=== PATIENT | female | born 1950 | race African-American/Black ===

== ENCOUNTER 2017-01-01 17:41 | Inpatient (IN) | payer MEDICARE, MEDICAID ==
[~2017-01-01] VITALS: Ht 134.6 cm; Wt 44.9 kg
[~2017-01-01 17:41] MED LIST: AVAPRO150 MG ORAL; CARVEDILOL12.5 MG ORAL; CARVEDILOL25 MG ORAL; CLONIDINE HCL0.3 MG PO; CLONIDINE0.1 MG ORAL; CLOPIDOGREL75 MG ORAL; COLACE100 MG ORAL; COREG12.5 MG ORAL; DIOVAN320 MG ORAL; FEOSOL325 MG ORAL; FERROUS SULFAT325 MG ORAL; HEARTBURN RELI150 M1 PO; HYDRALAZINE HCL25 M1 ORAL; ISOSORBIDE MONO30 M1 ORAL; ISOSORBIDE MONO30 M1 PO; NEPHRO-VITE RX1 EAC1 PO; NEPHROVITE1 TAB ORAL; NITROSTAT0.4 M1 SL; NOVOLOG100 UNIT/3 SUBQ; NOVOLOG100 UNITS1 SUBQ; PLAVIX75 MG ORAL; PRAVACHOL20 MG ORAL; PRAVASTATIN SOD20 M1 ORAL; PRAVASTATIN SOD40 M1 ORAL; PROCRIT10000 UNIT SUBQ; PROCRIT20000 UNI2 SUBQ; PROCRIT4000 UNIT/ SUBQ; RANITIDINE HCL150 MG ORAL; TRAMADOL HCL50 MG ORAL; VANCOMYCIN1 GM/2502 IVPB; ZOFRAN 4 MG4 MG/2 ML IVP
--- NOTE | 2017-01-01 17:47 | Emergency Room Report ---
History of Present Illness General Chief Complaint: Abdominal Pain Source: EMS Present Illness HPI 66 YO female presents to the Emergency Department brought by ambulance c/o vaginal bleeding and pain x 3 days. pt. has hx of ESRD requiring Dialysis, with bilateral LE amputations, necrotic finger, and skin disorder. Pt. last Dialysis was today. Pt has difficulty with communication and is unable to rate severity of pain. pt. verbalizes pain and points to the groin area. HPI and ROS limited by pt. being poor historian. Allergies: Coded Allergies: ASPIRIN (Verified Allergy, Mild, 08/15/10) PENICILLINS (Verified Allergy, Mild, 08/15/10) LEBRON INHIBITORS (Unverified Allergy, Unknown, 01/01/17) ACETAMINOPHEN (Unverified Allergy, Unknown, 09/18/15) patient stated CODEINE (Unverified Allergy, Unknown, 01/01/17) PENICILLIN (Verified Allergy, Unknown, 09/17/15) Uncoded Allergies: PENICILLIN (Allergy, Unknown, 01/01/17) Patient History Past Medical History: see triage record, renal disease Past Surgical History: richa Pertinent Family History: none Now: No Reviewed Nursing Documentation: PMH: Agreed, PSxH: Agreed Nursing Documentation-PMH Past Medical History: No History, Except For Hx Cardiac Problems: Yes - MO x3, BILAT AMPUTEE Hx Hypertension: Yes Hx Diabetes: Yes Hx Cancer: No Hx Gastrointestinal Problems: No Hx Dialysis: Yes - M, W, F Hx Neurological Problems: Yes Hx Cerebrovascular Accident: Yes - 3 YRS AGO - LEFT SIDE DEFICIT Hx Aphasia: Yes - Expressive Aphasia Review of Systems All Other Systems: limited - limited by pt. being poor historian. Physical Exam Vital Signs Date Time Temp Pulse Resp B/P Pulse Ox O2 Delivery O2 Flow Rate FiO2 01/01/17 17:34 98.1 94 16 151/75 100 Room Air Sp02 EP Interpretation: reviewed, normal General Appearance: alert, GCS 15, moderate distress, thin, Chronically Ill Head: normocephalic, atraumatic Eyes: bilateral eye PERRL, bilateral eye normal inspection ENT: hearing grossly normal, normal pharynx, no angioedema, normal voice Neck: full range of motion, supple/symm/no masses Respiratory: lungs clear, normal breath sounds Cardiovascular #1: regular rate, rhythm, no edema - pt has bilateral LE amputation Gastrointestinal: normal bowel sounds, soft, no guarding, no rebound, other - Lower abdominal Tenderness to deep palpation bilaterally, no appreciable peritoneal signs. Rectal: deferred Genitourinary: no CVA tenderness, urethra normal - difficult to determine blood from the urethra., other - moderate blood arising from the vaginal vault , dark red in color, pt. unable to tolerate speculum exam. no obvious palpable masses Musculoskeletal: back normal, non-tender, other - Pt has bilateral LE amputation, and necrotic left index finger. Neurologic: alert, oriented x3, responsive, sensory intact Psychiatric: judgement/insight normal, memory normal, mood/affect normal, no suicidal/homicidal ideation Skin: no rash, warm/dry, other - skin is thick and dry in appearance, necrotic left index finger. Medical Decision Making PA Attestation Dr. Gordon is my supervising Physician whom patient management has been discussed with. Diagnostic Impression: Primary Impression: Bladder hemorrhage Additional Impressions: Uterine hemorrhage ESRD (end stage renal disease) ER Course Pt. presents to the ED c/o vaginal bleeding: x 3 days. pt. has hx of ESRD, with bilateral LE amputations, necrotic finger, and skin disorder. Ddx considered but are not limited to: Fibroid, , Malignancy, Hematuria, laceration, DUB, MO Vital signs: are WNL, pt. is afebrile Pelvic Exam: limited due to pt. tolerance, dark blood noted coming from the vaginal vault. H&PE are most consistent with: Moderate vaginal bleed, in a medically complicated patient with chronic disease and comorbidities. ORDERS: -CBC critical low Hgb 6.5 -CMP: low cl and low potassium -PT/PTT: WNL -Troponin: WNL less than 0.3 -Total CK: Elevated -CK-MB: Elevated at 5 -Digoxin level: less than 0.3 -EK BPM NSR prolonged QT, septal T waves, and ST depression in lead V3- per interpretation by Dr. Gordon. IMAGING: -Pelvic US: uterine fibroids, ovaries not visualized due to pt. unable to tolerate and moderate vaginal bleeding per preliminary US report. -CT Abdomen and Pelvis Non Contrast: distended urinary bladder due to large hematoma. extensive large and small vessel arterial ASVD. evidence of arto- bifemoral bypass, uterine fibroids, heavily calcified , and basilar atelectasis per official radiology report. -Type and Cross: ED INTERVENTIONS: -2 Units PRBCs - OBGYN consult with Dr. Swanson DISPOSITION: at this time pt. will be admitted to Dr. Wayne for Acute bleeding from Uterus and Bladder. Dr. Wayne agreed to admit the pt. and to continue pt. care management. Labs Test 01/01/17 18:19 White Blood Count 6.3 K/UL (4.8-10.8) Red Blood Count 2.25 M/UL (4.20-5.40) Hemoglobin 6.5 G/DL (12.0-16.0) Hematocrit 21.1 % (37.0-47.0) Mean Corpuscular Volume 94 FL (80-99) Mean Corpuscular Hemoglobin 28.7 PG (27.0-31.0) Mean Corpuscular Hemoglobin Concent 30.6 G/DL (32.0-36.0) Red Cell Distribution Width 19.5 % (11.6-14.8) Platelet Count 207 K/UL (150-450) Mean Platelet Volume 7.7 FL (6.5-10.1) Neutrophils (%) (Auto) % (45.0-75.0) Lymphocytes (%) (Auto) % (20.0-45.0) Monocytes (%) (Auto) % (1.0-10.0) Eosinophils (%) (Auto) % (0.0-3.0) Basophils (%) (Auto) % (0.0-2.0) Differential Total Cells Counted 100 Neutrophils % (Manual) 79 % (45-75) Lymphocytes % (Manual) 6 % (20-45) Monocytes % (Manual) 7 % (1-10) Eosinophils % (Manual) 2 % (0-3) Basophils % (Manual) 3 % (0-2) Band Neutrophils 3 % (0-8) Platelet Estimate Adequate Platelet Morphology Normal Polychromasia 2+ Hypochromasia 1+ Anisocytosis 2+ Macrocytosis 2+ Prothrombin Time 10.5 SEC (9.30-11.50) Prothromb Time International Ratio 1.0 (0.9-1.1) Activated Partial Thromboplast Time 27 SEC (23-33) Sodium Level 138 mEQ/L (135-145) Potassium Level 3.0 mEQ/L (3.4-4.9) Chloride Level 90 mEQ/L (98-107) Carbon Dioxide Level 30 mEQ/L (20-30) Anion Gap 18 (5-15) Blood Urea Nitrogen 6 mg/dL (7-23) Creatinine 1.6 mg/dL (0.5-0.9) Estimat Glomerular Filtration Rate 38.9 mL/min (>60) Glucose Level 137 mg/dL (74-106) Calcium Level 9.6 mg/dL (8.6-10.2) Total Bilirubin 0.9 mg/dL (0.0-1.2) Aspartate Amino Transf (AST/SGOT) 25 U/L (5-40) Alanine Aminotransferase (ALT/SGPT) 5 U/L (3-33) Alkaline Phosphatase 59 U/L (35-104) Total Creatine Kinase 169 U/L (26-140) Creatine Kinase MB 5.0 ng/mL (< 3.8) Creatine Kinase MB Relative Index 2.9 Troponin I < 0.30 ng/mL (<=0.30) Total Protein 8.2 g/dL (6.6-8.7) Albumin 3.6 g/dL (3.5-5.2) Globulin 4.6 g/dL Albumin/Globulin Ratio 0.7 (1.0-2.7) Digoxin Level < 0.3 ng/mL (0.5-2.0) EKG Diagnostic Results EP Interpretation: interpretation by Dr. Gordon. Rate: normal - 98 BPM Rhythm: NSR PA Scribe Text 98 BPM NSR prolonged QT, septal T waves, and ST depression in lead V3- per interpretation by Dr. Gordon. Last Vital Signs Date Time Temp Pulse Resp B/P Pulse Ox O2 Delivery O2 Flow Rate FiO2 01/01/17 17:34 98.1 94 16 151/75 100 Room Air Disposition: ADMITTED INPATIENT Condition: Serious Cristina Jaimes Jan 01, 2017 17:47
[2017-01-01 18:29] LABS: MEAN CORPUSCULAR HEMOGLOBIN 28.7 PG (27.0-31.0); MEAN CORPUSCULAR HGB CONC 30.6 G/DL (32.0-36.0); MEAN CORPUSCULAR VOLUME 94 FL (80-99); MEAN PLATELET VOLUME 7.7 FL (6.5-10.1); PLATELET COUNT 207 K/UL (150-450); RED BLOOD COUNT 2.25 M/UL (4.20-5.40); RED CELL DISTRIBUTION WIDTH 19.5 % (11.6-14.8); WHITE BLOOD COUNT 6.3 K/UL (4.8-10.8)
[2017-01-01 18:52] LABS: PROTHROMBIN TIME 10.5 SEC (9.30-11.50)
[2017-01-01 18:56] LABS: TROPONIN I < 0.30 ng/mL (<=0.30)
[2017-01-01 18:59] LABS: ALBUMIN/GLOBULIN RATIO 0.7 (1.0-2.7); CALCIUM 9.6 mg/dL (8.6-10.2); CREATININE 1.6 mg/dL (0.5-0.9); GLOMERULAR FILTRATION RATE 38.9 mL/min (>60); TOTAL PROTEIN 8.2 g/dL (6.6-8.7)
[2017-01-01 20:01] VITALS: BP 159/61
[2017-01-01 20:31] LABS: BAND NEUTROPHILS % (MANUAL) 3 % (0-8); BASOPHILS % (MANUAL) 3 % (0-2); EOSINOPHILS % (MANUAL) 2 % (0-3); LYMPHOCYTES % (MANUAL) 6 % (20-45); NEUTROPHILS % (MANUAL) 79 % (45-75); TOTAL CELLS COUNTED 100
[2017-01-01 20:32] LABS: ANISOCYTOSIS 2+; POLYCHROMASIA 2+
[2017-01-01 20:33] LABS: HYPOCHROMASIA 1+; MACROCYTES 2+; PLATELET ESTIMATE ADEQUATE; PLATELET MORPHOLOGY NORMAL
[2017-01-01] MEDS ORDERED: Mylanta II UD 30ml ORAL PRN (22:30)
[2017-01-01] MEDS ORDERED: Miralax 17gm pkt ORAL PRN (22:30)
[2017-01-01] MEDS ORDERED: DuoNeb 0.5-3(2.5)mg/3ml neb HHN PRN (22:30)
[2017-01-01] MEDS ORDERED: Zolpidem 5mg tab ORAL PRN (22:30)
[2017-01-01 22:44] VITALS: BP 154/53
[2017-01-02] VITALS (9 sets, daily range): BP systolic 129–172; BP diastolic 56–68
[2017-01-02] MEDS ORDERED: Premarin Inj IV ONE ×2 (01:00→04:00)
[2017-01-02] MEDS ORDERED: NovoLOG Insulin Flexpen SUBQ SCH (06:30)
[2017-01-02] MEDS ORDERED: Irbesartan 150mg tablet ORAL SCH (09:00)
[2017-01-02] MEDS ORDERED: Carvedilol 12.5mg tab ORAL SCH ×3 (09:00)
[2017-01-02] MEDS ORDERED: Epogen (for ESRD on dialysis) SUBQ SCH (09:00)
[2017-01-02] MEDS ORDERED: HydrALAZINE 25mg tab ORAL SCH (09:00)
[2017-01-02] MEDS ORDERED: Imdur 30mg tab ORAL SCH (09:00)
[2017-01-02 10:04] LABS: BASOPHILS % (AUTO) 1.3 % (0.0-2.0); EOSINOPHILS % (AUTO) 1.1 % (0.0-3.0); LYMPHOCYTES % (AUTO) 14.4 % (20.0-45.0); MEAN CORPUSCULAR HEMOGLOBIN 29.2 PG (27.0-31.0); MEAN CORPUSCULAR HGB CONC 32.8 G/DL (32.0-36.0); MEAN CORPUSCULAR VOLUME 89 FL (80-99); MEAN PLATELET VOLUME 7.4 FL (6.5-10.1); MONOCYTES % (AUTO) 11.4 % (1.0-10.0); NEUTROPHILS % (AUTO) 71.8 % (45.0-75.0); PLATELET COUNT 216 K/UL (150-450); RED BLOOD COUNT 3.49 M/UL (4.20-5.40); RED CELL DISTRIBUTION WIDTH 17.5 % (11.6-14.8); WHITE BLOOD COUNT 5.7 K/UL (4.8-10.8)
--- NOTE | 2017-01-02 10:05 | Diagnostic Imaging Report ---
Indication: Postmenopausal bleeding Technique: Transabdominal and endovaginal pelvic ultrasound. Comparison: None Findings: Uterus measures 7.9 x 4.0 cm and demonstrates heterogeneous echogenicity. Multiple calcified uterine masses are demonstrated grossly measuring up to 4.5 cm. The endometrial echo complex is obscured. The bilateral ovaries are not seen. Impression: Technically limited examination. Heterogeneous uterus with multiple calcified masses measuring up to 4.5 cm suggestive of fibroids. Endometrial echo complex obscured by the calcified masses and not adequately evaluated. Given history of postmenopausal bleeding, further evaluation/gynecologic consultation recommended. Bilateral ovaries not seen.
[2017-01-02] MEDS: HydrALAZINE 25mg tab ORAL SCH ×2 (10:18→21:41)
[2017-01-02] MEDS: Irbesartan 150mg tablet ORAL SCH (10:19)
[2017-01-02] MEDS: Imdur 30mg tab ORAL SCH (10:19)
[2017-01-02] MEDS: Carvedilol 12.5mg tab ORAL SCH ×2 (10:21→21:42)
[2017-01-02 10:25] LABS: ALBUMIN/GLOBULIN RATIO 0.6 (1.0-2.7); CALCIUM 9.1 mg/dL (8.6-10.2); CHOLESTEROL/HDL RATIO 2.1 (3.3-4.4); CREATININE 2.4 mg/dL (0.5-0.9); GLOMERULAR FILTRATION RATE 24.4 mL/min (>60); TOTAL PROTEIN 7.1 g/dL (6.6-8.7)
[2017-01-02] MEDS ORDERED: Mylanta II UD 30ml ORAL PRN (10:30)
[2017-01-02] MEDS ORDERED: DuoNeb 0.5-3(2.5)mg/3ml neb HHN PRN (10:30)
[2017-01-02 10:31] LABS: THYROID STIMULATING HORMONE 1.12 uIU/mL (0.300-4.500)
--- NOTE | 2017-01-02 10:37 | Diagnostic Imaging Report ---
Indication: Abdominal pain Technique: CT scan of the abdomen and pelvis utilizing automated exposure control without intravenous or oral contrast. Axial, sagittal and coronal images were obtained. CT dose: Total DLP 375 mGycm; CTDI vol 7.9 mGy Comparison: None Findings: Evaluation of the solid organs is limited without intravenous contrast material. There is atelectasis in the lung bases. Trace bilateral pleural effusions are seen. The heart is enlarged. There is a calcified granuloma the liver. Cholecystectomy clips are seen. The adrenal glands, spleen and pancreas are grossly unremarkable as evaluated without contrast. The bilateral kidneys are slightly small with tiny hypodensities incompletely characterized. Extensive vascular calcifications are noted. Vascular patency is not adequately assessed without contrast. The small bowel loops are normal in caliber. There is no definitive evidence of appendicitis. There is limited evaluation of the bowel. The bladder is thickened. There is heterogeneous masslike increased density in the posterior bladder measuring approximately 6.7 x 3.5 cm. Air is also seen within the bladder. Multiple calcified uterine masses are demonstrated measuring up to 4.5 cm. There is no free intraperitoneal air. Degenerative changes of the spine are present. There is osteopenia. Impression: Air within the bladder with bladder wall thickening. Cystitis not excluded. Heterogeneous masslike increased density within the posterior bladder measuring 6.7 x 3.5 cm. Although this could represent a hematoma, possibility of a bladder mass not excluded. Further evaluation recommended. Multiple calcified uterine masses suggestive of fibroids. Extensive vascular calcifications. Vascular patency not adequately assessed without contrast. Cholecystectomy. Slightly small bilateral kidneys. Tiny bilateral renal hypodensities incompletely characterized probably cysts. Trace bilateral pleural effusions. Lung base atelectasis. Cardiomegaly. Other findings as above. The CT scanner at [facility] is accredited by the [employer] and the scans are performed using protocols designed to limit radiation exposure to as low as reasonably achievable to attain images of sufficient resolution adequate for diagnostic evaluation.
--- NOTE | 2017-01-02 10:40 | Consultation ---
History of Present Illness General Date patient seen: Jan 02, 2017 Chief Complaint: Abdominal Pain Referring physician: Dr. Wayne Reason for Consultation: Inpatient management Present Illness HPI 66 year female with hx of Scleroderma, ESRF, PVD, bilateral BKA, necrotic left middle finger presents to the Emergency Department brought by ambulance c/o vaginal bleeding and pain x 3 days. Pt is a very poor historians and cant communicate well, showing to groin area. Allergies: Coded Allergies: ASPIRIN (Verified Allergy, Mild, 08/15/10) PENICILLINS (Verified Allergy, Mild, 08/15/10) LEBRON INHIBITORS (Unverified Allergy, Unknown, 01/01/17) ACETAMINOPHEN (Unverified Allergy, Unknown, 09/18/15) patient stated CODEINE (Unverified Allergy, Unknown, 01/01/17) PENICILLIN (Verified Allergy, Unknown, 09/17/15) Uncoded Allergies: PENICILLIN (Allergy, Unknown, 01/01/17) Medication History Scheduled Carvedilol (Coreg), 12.5 MG ORAL EVERY 12 HOURS Carvedilol* (Carvedilol*), 12.5 MG ORAL DAILY, (Reported) Carvedilol* (Carvedilol*), 25 MG ORAL BEDTIME, (Reported) Carvedilol* (Carvedilol*), 12.5 MG ORAL EVERY 12 HOURS, (Reported) Clonidine Hcl (Clonidine Hcl), 0.3 MG PO BEDTIME, (Reported) Clopidogrel Bisulfate* (Plavix*), 75 MG ORAL DAILY Clopidogrel* (Clopidogrel*), 75 MG ORAL DAILY, (Reported) Clopidogrel* (Clopidogrel*), 75 MG ORAL DAILY, (Reported) Docusate Sodium* (Colace*), 100 MG ORAL EVERY 12 HOURS Epoetin Tristan (Procrit), 5,000 UNITS SUBQ q weekly Epoetin Tristan (Procrit), 4,000 UNIT SUBQ 3XW, (Reported) Epoetin Tristan (Procrit), 5,000 UNIT SUBQ ONCE A WEEK, (Reported) Ferrous Sulfate (Feosol), 325 MG ORAL THREE TIMES A DAY Ferrous Sulfate* (Ferrous Sulfate*), 325 MG ORAL THREE TIMES A DAY Ferrous Sulfate* (Ferrous Sulfate*), 325 MG ORAL THREE TIMES A DAY, (Reported) Hydralazine Hcl* (Hydralazine Hcl*), 75 MG ORAL Q12HR Insulin Aspart (Novolog Flexpen), 0 UNITS SUBQ BEFORE MEALS AND HS Insulin Aspart* (Novolog*), Unknown Dose SUBQ ACHS, (Reported) Irbesartan* (Avapro*), 300 MG ORAL DAILY Isosorbide Mononitrate (Isosorbide Mononitrate Er), 30 MG PO DAILY, (Reported) Isosorbide Mononitrate (Isosorbide Mononitrate Er), 30 MG ORAL DAILY Pravastatin Sod (Pravastatin Sod), 40 MG ORAL BEDTIME, (Reported) Pravastatin Sod* (Pravastatin Sod*), 40 MG ORAL BEDTIME, (Reported) Pravastatin Sod* (Pravachol*), 40 MG ORAL BEDTIME Ranitidine Hcl* (Zantac*), 150 MG ORAL DAILY, (Reported) Valsartan (Diovan), 320 MG ORAL DAILY, (Reported) Valsartan (Diovan), 320 MG ORAL DAILY, (Reported) Vancomycin Hcl/D5w (Vancomycin-D5w 1 G/250 Ml), 1 GM IVPB Q24H Vitamin B Cmplx/Vit C/Folic AC (Nephro-Aleksandr Tablet), 1 TAB ORAL DAILY, (Reported ) Vitamin B Cmplx/Vit C/Folic AC (Nephro-Aleksandr Tablet), 1 TAB ORAL DAILY Scheduled PRN Clonidine HCl (Clonidine HCl), 0.1 MG ORAL Q6H PRN for SBP>160 Nitroglycerin (Nitrostat), 0.4 MG SL Q5M PRN for Prn Chest Pain Ondansetron* (Zofran*), 4 MG IVP Q6H PRN for Nausea & Vomiting Tramadol Hcl* (Ultram*), 50 MG ORAL Q6H PRN for For Pain Miscellaneous Medications Clonidine Hcl (Clonidine Hcl), 0.3 MG PO, (Reported) Isosorbide Mononitrate (Isosorbide Mononitrate Er), 30 MG PO, (Reported) Ranitidine Hcl (Heartburn Relief), 150 MG PO, (Reported) Vit B Cmplx 3/Fa/Vit C/Biotin (Nephro-Aleksandr Rx Tablet), Unknown Dose PO, ( Reported) Patient History Healthcare decision maker Resuscitation status Full Code Advanced Directive on File No Past Medical/Surgical History Past Medical/Surgical History: (1) ESRF (end stage renal failure) (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 Review of Systems Constitutional: Reports: weakness Genitourinary: Reports: pain All Other Systems: negative except mentioned in HPI Physical Exam General Appearance: cachetic Lines, tubes and drains: peripheral HEENT: normocephalic, atraumatic Neck: non-tender, normal alignment Respiratory/Chest: chest wall non-tender, lungs clear Cardiovascular/Chest: normal peripheral pulses, normal rate Abdomen: normal bowel sounds, non tender Last 24 Hour Vital Signs Date Time Temp Pulse Resp B/P Pulse Ox O2 Delivery O2 Flow Rate FiO2 01/02/17 10:21 92 172/68 01/02/17 10:19 17268 01/02/17 10:19 172/68 01/02/17 10:18 172/68 01/02/17 10:04 92 18 Room Air 21 01/02/17 08:00 97.3 95 16 172/68 01/02/17 04:00 85 01/02/17 02:30 98.3 93 29 154/56 99 Room Air 01/02/17 02:00 98.3 93 29 154/56 99 Room Air 01/02/17 01:00 98.2 90 26 144/56 99 Room Air 01/02/17 00:45 98.4 91 24 148/58 99 Room Air 01/02/17 00:30 98.4 90 29 148/59 99 Room Air 01/02/17 00:23 98.9 93 37 01/02/17 00:15 98.9 93 37 151/56 100 Room Air 01/01/17 22:44 98.4 89 18 154/53 97 Room Air 01/01/17 20:01 98.4 93 20 159/61 95 Room Air 01/01/17 17:34 98.1 94 16 151/75 100 Room Air Intake and Output 01/01/17 01/02/17 19:00 07:00 Intake Total 0 ml Output Total 0 ml Balance 0 ml Intake Oral 0 ml Other 0 ml Output Urine Total 0 ml Laboratory Tests Test 01/01/17 18:19 01/02/17 09:45 White Blood Count 6.3 K/UL (4.8-10.8) 5.7 K/UL (4.8-10.8) Red Blood Count 2.25 M/UL (4.20-5.40) L 3.49 M/UL (4.20-5.40) L Hemoglobin 6.5 G/DL (12.0-16.0) *L 10.2 G/DL (12.0-16.0) #L Hematocrit 21.1 % (37.0-47.0) L 31.0 % (37.0-47.0) #L Mean Corpuscular Volume 94 FL (80-99) 89 FL (80-99) Mean Corpuscular Hemoglobin 28.7 PG (27.0-31.0) 29.2 PG (27.0-31.0) Mean Corpuscular Hemoglobin Concent 30.6 G/DL (32.0-36.0) L 32.8 G/DL (32.0-36.0) Red Cell Distribution Width 19.5 % (11.6-14.8) H 17.5 % (11.6-14.8) H Platelet Count 207 K/UL (150-450) 216 K/UL (150-450) Mean Platelet Volume 7.7 FL (6.5-10.1) 7.4 FL (6.5-10.1) Neutrophils (%) (Auto) % (45.0-75.0) 71.8 % (45.0-75.0) Lymphocytes (%) (Auto) % (20.0-45.0) 14.4 % (20.0-45.0) L Monocytes (%) (Auto) % (1.0-10.0) 11.4 % (1.0-10.0) H Eosinophils (%) (Auto) % (0.0-3.0) 1.1 % (0.0-3.0) Basophils (%) (Auto) % (0.0-2.0) 1.3 % (0.0-2.0) Differential Total Cells Counted 100 Neutrophils % (Manual) 79 % (45-75) H Lymphocytes % (Manual) 6 % (20-45) L Monocytes % (Manual) 7 % (1-10) Eosinophils % (Manual) 2 % (0-3) Basophils % (Manual) 3 % (0-2) H Band Neutrophils 3 % (0-8) Platelet Estimate Adequate Platelet Morphology Normal Polychromasia 2+ Hypochromasia 1+ Anisocytosis 2+ Macrocytosis 2+ Prothrombin Time 10.5 SEC (9.30-11.50) Prothromb Time International Ratio 1.0 (0.9-1.1) Activated Partial Thromboplast Time 27 SEC (23-33) Sodium Level 138 mEQ/L (135-145) Pending Potassium Level 3.0 mEQ/L (3.4-4.9) L Pending Chloride Level 90 mEQ/L (98-107) L Pending Carbon Dioxide Level 30 mEQ/L (20-30) Pending Anion Gap 18 (5-15) H Blood Urea Nitrogen 6 mg/dL (7-23) L Pending Creatinine 1.6 mg/dL (0.5-0.9) H Pending Estimat Glomerular Filtration Rate 38.9 mL/min (>60) Pending Glucose Level 137 mg/dL (74-106) H Pending Calcium Level 9.6 mg/dL (8.6-10.2) Pending Total Bilirubin 0.9 mg/dL (0.0-1.2) Pending Aspartate Amino Transf (AST/SGOT) 25 U/L (5-40) Pending Alanine Aminotransferase (ALT/SGPT) 5 U/L (3-33) Pending Alkaline Phosphatase 59 U/L (35-104) Pending Total Creatine Kinase 169 U/L (26-140) H Creatine Kinase MB 5.0 ng/mL (< 3.8) H Creatine Kinase MB Relative Index 2.9 Troponin I < 0.30 ng/mL (<=0.30) Total Protein 8.2 g/dL (6.6-8.7) Pending Albumin 3.6 g/dL (3.5-5.2) Pending Globulin 4.6 g/dL Pending Albumin/Globulin Ratio 0.7 (1.0-2.7) L Digoxin Level < 0.3 ng/mL (0.5-2.0) L Hemoglobin A1c 5.0 % (< 6.0) Triglycerides Level Pending Cholesterol Level Pending LDL Cholesterol Pending HDL Cholesterol Pending Cholesterol/HDL Ratio Pending Thyroid Stimulating Hormone (TSH) Pending Height (Feet): 4 Height (Inches): 5.00 Weight (Pounds): 99 Medications Current Medications Medications (Trade) Dose Ordered Sig/Angelique Route PRN Reason Start Time Stop Time Status Last Admin Dose Admin Al Hydroxide/Mg Hydroxide (Mylanta II) 30 ml Q6H PRN ORAL dyspepsia 01/02/17 10:30 02/01/17 10:29 Albuterol/ Ipratropium (DuoNeb 0.5-3(2.5)mg/3ml) 3 ml Q6H PRN HHN dyspnea 01/02/17 10:30 01/07/17 10:29 Carvedilol (Coreg) 12.5 mg EVERY 12 HOURS ORAL 01/02/17 10:20 02/01/17 10:19 01/02/17 10:21 Dextrose (Dextrose 50%) STAT PRN IV Hypoglycemia 01/02/17 22:30 02/01/17 22:29 Epoetin Tristan (Procrit (for ESRD on dialysis)) 5,000 units WED-WED-WED SUBQ 01/04/17 21:00 02/03/17 20:59 Hydralazine HCl (Apresoline) 75 mg Q12HR ORAL 01/02/17 09:00 02/01/17 08:59 01/02/17 10:18 Insulin Aspart (NovoLOG) BEFORE MEALS AND HS SUBQ 01/02/17 11:30 02/01/17 11:29 Irbesartan (Avapro) 300 mg DAILY ORAL 01/02/17 09:00 02/01/17 08:59 01/02/17 10:19 Isosorbide Mononitrate (Imdur) 30 mg DAILY ORAL 01/02/17 09:00 02/01/17 08:59 01/02/17 10:19 Ondansetron HCl (Zofran) 4 mg Q6H PRN IVP Nausea & Vomiting 01/02/17 10:30 02/01/17 10:29 Polyethylene Glycol (Miralax) 17 gm HSPRN PRN ORAL Constipation 01/02/17 22:30 02/01/17 22:29 Pravastatin Sodium (Pravachol) 40 mg BEDTIME ORAL 01/02/17 21:00 02/01/17 20:59 Zolpidem Tartrate (Ambien) 5 mg HSPRN PRN ORAL Insomnia 01/02/17 22:30 02/01/17 22:29 Assessment/Plan Problem List: (1) Symptomatic anemia ICD Codes: D64.9 - Anemia, unspecified SNOMED: 584599700 (2) Bladder hemorrhage ICD Codes: N32.89 - Other specified disorders of bladder SNOMED: 704928626, 715913480 (3) Uterine hemorrhage ICD Codes: N93.9 - Abnormal uterine and vaginal bleeding, unspecified SNOMED: 23859788, 954719595 (4) ESRF (end stage renal failure) ICD Codes: N18.6 - End stage renal disease SNOMED: 38110976 (5) DM renal manif type II ICD Codes: E11.29 - Type 2 diabetes mellitus with other diabetic kidney complication SNOMED: 89853285, 733213004 Assessment/Plan prbc prn check H/H Urology, Dr. Monaco called, Renal f/u sliding scale and diabetic diet. ELIA MARADIAGA Jan 02, 2017 10:40
[2017-01-02 10:42] LABS: POTASSIUM 2.6 mEQ/L (3.4-4.9)
[2017-01-02 10:53] LABS: BILIRUBIN,DIRECT 0.5 mg/dL (0.1-0.3)
[2017-01-02] MEDS: NovoLOG Insulin Flexpen SUBQ SCH ×3 (11:30→21:00)
--- NOTE | 2017-01-02 13:53 | History & Physical ---
History and Physical History & Physicial Dictated for Int Med-Dr Wayne no. [id number]. NAHOMY MERRILL Jan 02, 2017 13:53
--- NOTE | 2017-01-02 16:18 | History and Physical Report ---
DATE OF ADMISSION: 01/01/2017 CHIEF COMPLAINT: Abdominal pain and vaginal bleeding. HISTORY OF PRESENT ILLNESS: The patient is a 66-year-old, presented to the emergency department brought by ambulance with vaginal bleeding and pain for three days. The patient has end-stage renal disease requiring dialysis, bilateral lower extremity amputations. The patient has severe difficulty communicating, but seems to understand the questions. The patient was brought from home as she says that she has family, but family has not been around to the hospital. PAST MEDICAL HISTORY: End-stage renal disease and hypertension. She also has a history of diabetes and she had a cerebrovascular accident three years ago with left-sided deficit. PAST SURGICAL HISTORY: Cholecystectomy. ALLERGIES: No known drug allergies. Coded allergies to aspirin, penicillin, LEBRON inhibitors, codeine. The patient's history as above. PERTINENT FAMILY HISTORY: Not available. PHYSICAL EXAMINATION: VITAL SIGNS: Temperature 98.3 degrees, pulse 93, respiratory rate 29, blood pressure 154/56, and pulse oximetry 99%. HEAD AND NECK: Pupils equal and reactive to light. LUNGS: Deferred. CARDIAC: Deferred. ABDOMEN: Soft, scaphoid, nondistended and slightly tender in suprapubic area. EXTREMITIES: Bilateral extremities amputated below the knee. PELVIC: Please note that the patient has moderate vaginal bleeding and I was unable to do a full pelvic exam in bed given that the patient is an amputee with difficulty moving her legs. LABORATORY AND DIAGNOSTIC DATA: CBC with a hemoglobin of 6.5. Pelvic ultrasound was consistent with uterine fibroids. Ovaries not visualized. EEC not visualized. CT abdomen and pelvis noncontrast, distended urinary bladder due to the large hematoma, extensive large and small vessel arterial ASVD, evidence of aortobifemoral bypass, uterine fibroids, heavily calcified and basilar atelectasis per official Radiology report. ASSESSMENT: The patient is a 66-year-old female with vaginal bleeding. No blood in [place]. Unable to do a proper pelvic exam. Unable to biopsy her in bed. The patient is status post transfusion of two units packed RBCs per my request. PLAN: To do exam under anesthesia, possible dilation and curettage, hysteroscopy, possible biopsies in the OR tomorrow morning. Addendum: 01/03/2017 After calderón was reinserted by the urologist- it was discovered that patient had bleeding from the bladder and gross hematuria with blood clots and there was no vaginal bleeding. The exam under anesthesia, etc. was postoponed until full evaluation by urology was completed. Noemi Tay M.D. DR: VERÓNICA JOB#: [id number] CC: [id number]
--- NOTE | 2017-01-02 16:20 | General Progress Note ---
Progress Note Progress Note [id number] full note dictated thanks KALINA WELLS Jan 02, 2017 16:20
[2017-01-02 16:45] LABS: PHOSPHORUS 2.1 mg/dL (2.5-4.8)
[2017-01-02] MEDS ORDERED: Zolpidem 5mg tab ORAL PRN (22:30)
[2017-01-02] MEDS ORDERED: Miralax 17gm pkt ORAL PRN (22:30)
--- NOTE | 2017-01-02 23:08 | History and Physical Report ---
DATE OF ADMISSION: 01/01/[address] Wayne. CHIEF COMPLAINT: The patient is a 66-year-old female, who presents with complaint of vaginal bleeding and hematuria. HISTORY OF PRESENT ILLNESS: The patient has a history of peripheral vascular disease. The patient has bilateral urtlx-oej-cetp amputation. The patient herself is not able to contribute much to the history and physical. Much of the history and physical is obtained from the patient's chart. The patient presented to [place] emergency room complaining of vaginal bleeding and groin pain for approximately three days. The patient notes bright red blood per the vagina. The patient was found to have a hemoglobin of 6.5. The patient is admitted with gross hematuria to rule out bladder cancer. REVIEW OF SYSTEMS: Unable to obtain secondary to the patient's mental condition. PAST MEDICAL HISTORY: Significant for 1. Severe peripheral vascular disease, status post bilateral jzdbr-kka-gkws amputation. 2. End-stage renal disease, on dialysis every Wednesday, Wednesday, and Wednesday. 3. Diabetes type 2. 4. Cerebrovascular accident with expressive aphasia. 5. Hypertension. 6. History of scleroderma. 7. Necrotic left third finger. PAST SURGICAL HISTORY: Significant for 1. Bilateral menmh-ahy-ihtp amputation. 2. Arteriovenous graft in the left upper extremity. CURRENT MEDICATIONS: 1. Coreg 12.5 mg one tablet p.o. twice daily. 2. Clonidine 0.2 mg one tablet p.o. at bedtime. 3. Clonidine 0.1 mg one tablet p.o. q.6 h. p.r.n. 4. Plavix 75 mg one tablet p.o. daily. 5. Procrit 5000 units subcutaneously every week. 6. Iron sulfate 325 mg one tablet p.o. three times daily. 7. Hydralazine 25 mg one tablet p.o. twice daily. 8. NovoLog sliding scale. 9. Avapro 300 mg one tablet p.o. daily. 10. Isosorbide mononitrate 30 mg one tablet p.o. daily. 11. Nitroglycerin 0.4 mg sublingual p.r.n. 12. Pravachol 40 mg one tablet p.o. at bedtime. 13. Zantac 150 mg one tablet p.o. daily. 14. Tramadol 50 mg one tablet p.o. q.6 h. 15. Diovan 320 mg one tablet p.o. daily. 16. Vitamin B complex one tablet p.o. daily. ALLERGIES: 1. Aspirin. 2. Penicillin. 3. LEBRON inhibitor. 4. Acetaminophen. 5. Codeine. SOCIAL HISTORY: The patient is single. The patient denies tobacco or alcohol use. PHYSICAL EXAMINATION: VITAL SIGNS: Temperature 97.3, respirations 16, pulse 95, and blood pressure elevated at 172/60. GENERAL: The patient is a thin-appearing female, in no apparent distress. HEENT: Eyes, pupils are equal and responsive to light and accommodation. Extraocular movements are intact. NECK: Supple without lymphadenopathy. CHEST: Lungs are clear to auscultation bilaterally without wheezes or rales. CARDIOVASCULAR: Regular rhythm and rate. S1 and S2 normal without murmurs, rubs, gallops. ABDOMEN: Soft, nontender, and nondistended. Positive bowel sounds. No hepatosplenomegaly. Currently, no rebound or guarding noted. EXTREMITIES: The patient had a bilateral hcgov-qus-wpge amputation. Otherwise, without clubbing, cyanosis or edema. RECTAL: Refused. GENITAL: Refused. NEUROLOGIC: Cranial nerves II through XII are grossly intact without focal deficits. LABORATORY STUDIES: WBC 6.3, hemoglobin 6.5, hematocrit 21.1, and platelets 207,000. Sodium 138, potassium 3, chloride 90, CO2 30, BUN 6, creatinine 1.6, and glucose 137. Troponin less than 0.3. Chest x-ray and CT scan of the abdomen and pelvis revealed a 6.7 x 3.5 cm bladder mass. There were calcified uterine fibroids noted. ASSESSMENT: This is a 66-year-old, female. 1. Bladder mass. 2. Hematuria. 3. Vaginal bleeding. 4. Severe anemia. 5. Hypokalemia. 6. Diabetes type 2. 7. End-stage renal disease. 8. Scleroderma. 9. Cerebrovascular disease. 10. Expressive aphasia. 11. Bilateral yvmgz-ynl-ncpt amputation. 12. Necrotic third finger on the left. TREATMENT: 1. Bladder mass/hematuria. Urology consultation done with Dr. Monaco. We will follow recommendation of Urology. The patient may require cystoscopy. 2. Vaginal bleeding. This is probably secondary to bladder mass as above. The patient does have calcified uterine fibroids, which are probably not the source of the bleeding. 3. Severe anemia. The patient has been typed and crossed for two units of packed RBCs. Transfuse when available. 4. Hypokalemia. The patient is scheduled for dialysis on Wednesday. The patient is currently receiving potassium supplement. 5. Diabetes type 2. Continue NovoLog sliding scale. 6. End-stage renal disease. The patient has been seen previously in Nephrology consultation by Dr. Gray. 7. Scleroderma. 8. Cerebrovascular disease. 9. Expressive aphasia. 10. Bilateral gbaxv-scd-nquz amputations. 11. Necrotic left third finger. Dexter Holloway M.D. DR: JJ JOB#: [id number] CC:
--- NOTE | 2017-01-02 23:18 | Consultation ---
DATE OF CONSULTATION: 01/02/2017 ATTENDING/CONSULTING PHYSICIAN: Elena Whitlock M.D. CHIEF COMPLAINT/HISTORY OF PRESENT ILLNESS: I was asked by Dr. Whitlock to evaluate this unfortunate 66-year-old female regarding a history of gross hematuria. Briefly, the patient has a history of ESRD. She has been maintained on dialysis. She was brought into the emergency room with vaginal/urethral bleeding for approximately three days time. She has multiple medical issues including previous lower extremity amputations. She cannot provide much information and is a poor historian. Most of the information was gathered from the chart. PAST MEDICAL HISTORY: 1. ESRD, on dialysis. 2. Skin disorder, not otherwise specified. PAST SURGICAL HISTORY: 1. Bilateral above-knee amputations. 2. Cholecystectomy. MEDICATIONS: Please see chart for current medications administration details. ALLERGIES: Include penicillins, LEBRON inhibitors, acetaminophen, codeine, and aspirin. SOCIAL HISTORY: Noncontributory. FAMILY HISTORY: Unobtainable as the patient cannot provide much information. REVIEW OF SYSTEMS: A 12-system review of systems cannot be done as the patient has difficulty communicating. PHYSICAL EXAMINATION: GENERAL: The patient is an older female, awake and alert, uncertain of orientation. VITAL SIGNS: Afebrile. Vital signs are stable. HEENT: NCAT. EOMI. NECK: Supple. Full range of motion. Oropharynx is clear. CHEST: Within normal limits. ABDOMEN: Soft, flat, nontender, and nondistended. EXTREMITIES: Warm and well perfused. Bilateral AKAs noted. BACK: No obvious CVA tenderness to percussion. NEUROLOGIC: Deferred as the patient cannot cooperate with exam. GENITOURINARY: Exam reveals normal female external genitalia with a Andrew catheter in place, which has bloody output, which is scant, does not appear to be draining well. LABORATORY DATA: White blood cell count 5.7, hematocrit 31.0, and platelets 216,000. PT 10.5, INR 1.0, and PTT 27. Sodium 138, potassium 2.6, chloride 93, bicarbonate 31, BUN 11, creatinine 2.4, and glucose 101. LFTs within normal limits. Alkaline phosphatase 62. DIAGNOSTIC IMAGING: CT scan of the abdomen and pelvis without contrast reveals bilateral small kidneys with hypodensities incompletely characterized. There was air within the bladder with bladder wall thickening. There is a heterogenous mass of increased density in the posterior bladder measuring 6 x 3 cm in size, likely representing a hematoma versus less likely a bladder mass. There is uterine mass suggestive of fibroids and there are extensive vascular calcifications. ASSESSMENT AND PLAN: In summary, the patient is a 24-cmhz[age]mbvayz with a history of multiple medical issues including end-stage renal disease, on hemodialysis. She presents to the hospital with gross hematuria. Physical exam reveals a Andrew catheter, which has slightly bloody, but not much urine output. Laboratory data is notable for evidence of anemia as well as hypokalemia and renal insufficiency. Diagnostic imaging with CT scan reveals mass in the bladder consistent likely with clot. Today at the bedside, I attempted to irrigate the patient's catheter. It did not irrigate indicating that it was completely clogged. As such, it was removed and 18-Faroese Andrew catheter was placed. This was hand irrigated and clots were cleared from the bladder. At conclusion of irrigation, the output was pink and clear. It was left to gravity drainage. It appears, the patient has a history of gross hematuria. CT scan does not reveal anything obvious outside of the mass in the bladder, which likely represents a clot from the hematuria. I would recommend placing her on a regimen of some antibiotics as she has not currently received any. Additionally, she will need outpatient cystoscopy to complete her workup. If the bleeding did not marce, she will need the cystoscopy to be done as an inpatient for evaluation of the same. Thank you for allowing me to participate in the care of this unfortunate lady. Please do not hesitate to contact me with any questions that you may further have regarding her care. I will be happy to continue seeing her with you as needed. Jcarlos Monaco M.D. DR: JOAQUIN JOB#: [id number] CC:
--- NOTE | 2017-01-02 23:48 | Consultation ---
DATE OF CONSULTATION: 01/02/2017 CONSULTING PHYSICIAN: Brittnee Zhu M.D. REFERRING PHYSICIAN: Dexter Holloway M.D. REASON FOR CONSULTATION: End-stage renal disease and severe hypokalemia. HISTORY OF PRESENT ILLNESS: The patient is a 66-year-old unfortunate female with past medical history significant for end-stage renal disease, on dialysis Wednesday, Wednesday, and Wednesday. She also unfortunately bilateral lower extremity BKA due to peripheral vascular disease, diabetes, hypertension, CVA with expressive aphagia, and possibly malnutrition. She was basically presented to [facility] after she found to have a vaginal bleeding. Upon arrival in the ER, the patient found to have a potassium of 3. Later on, the patient found to be anemic, so the patient received 2 units of packed RBCs, but her potassium dropped further down from 3 to 2.7. I was called for management of renal disease and electrolyte imbalance. Note that the patient has an expressive aphasia and very hard to obtain a complete history from her. PAST MEDICAL HISTORY: 1. End-stage renal disease. 2. Anemia of chronic kidney disease. 3. Renal osteodystrophy. 4. Hypertension. 5. Bilateral lower extremity BKA. 6. History of diabetes. 7. History of CVA. 8. History of hypertension. 9. History of dyslipidemia. SOCIAL HISTORY: She lives at home by herself. So far, there is no she is being taking care of herself, but she seems to be very cachectic and malnourished. She denies having any history of alcohol or drug use. FAMILY HISTORY: Noncontributory. PAST SURGICAL HISTORY: Based on what I could find are includin. History of bilateral lower extremity BKA. 2. History of dialysis catheter placement. 3. History of AV fistula placement. ALLERGIES: She is allergic to aspirin, penicillin, LEBRON inhibitor, and codeine. HOME MEDICATIONS: 1. Carvedilol 12.5 mg p.o. daily. 2. Clonidine 0.3 mg at bedtime. 3. Plavix 75 mg p.o. daily. 4. Epogen 5000 units subcutaneous Wednesday, Wednesday, and Wednesday. 5. Iron sulfate 325 mg p.o. daily. 6. Hydralazine 75 mg p.o. daily. 7. Isosorbide mononitrate 30 mg p.o. daily. 8. Pravastatin 40 mg p.o. daily. 9. Valsartan 320 mg p.o. daily. 10. Ranitidine 40 mg p.o. daily. 11. Nephro-Aleksandr one tablet p.o. daily. 12. Renagel 800 mg p.o. t.i.d. FAMILY HISTORY: Noncontributory. REVIEW OF SYSTEMS: Limited due to the fact that the patient has a history of aphasia. General: She complained of generalized weakness. She said yes to weight loss. No chills. No night sweats. Head And Neck: No dysphagia. this morning was able to feed the patient food. No blurry vision. No neck stiffness. Pulmonary: The patient lying flat. Denies having any chest pain or cough. Cardiovascular: Denies any chest pain or palpitations. Gastrointestinal: There is no nausea or vomiting. Genitourinary: The patient has a Andrew catheter, which has blood in it and also questionable vaginal bleeding. PHYSICAL EXAMINATION: VITAL SIGNS: The patient has a temperature of 97, blood pressure 172/68, pulse rate of 95, and respiratory rate of 18. HEAD AND NECK: No JVP. No LAD. No thyromegaly. Extraocular movement intact. Pupils are reactive to light and accommodation. LUNGS: Decreased breathing sounds. CARDIAC: Regular rate and rhythm. S1-S2. No murmur. No rub. ABDOMEN: Soft and nontender. EXTREMITIES: She has bilateral lower extremity amputation and has a Andrew catheter. It has blood in it. LABORATORY VALUES: The patient has WBC count of 6.3, hemoglobin of 6.5, hematocrit of 25, and platelet count of 207,000. Today after two units of blood transfusion, the patient had WBC count of 5.7, hemoglobin of 10.2, hematocrit of 31, and platelet count of 260,000. Chemistry reveals sodium 138, potassium 3.6, 93 chloride, 31 bicarbonate, BUN 11, creatinine of 2.4, glucose of 101, and calcium of 9.1. Total bilirubin of 1.6. The patient also has total protein of 7.1 and albumin of 2.8. Cholesterol panel, LDL of 36, total cholesterol of 101, and HDL of 49. Thyroid function tests within normal limits. ASSESSMENT: 1. Severe hypokalemia. 2. End-stage renal disease. 3. Anemia of chronic kidney disease. 4. Hematuria. 5. Questionable bladder CA when there was urinary tract infection. 6. Hypertension, which is uncontrolled at this time. 7. Diabetes. PLAN: Plan for the patient to restart the patient back on home medications for the high blood pressure. I would replace the potassium since the repeat potassium came back to be 2.6. I would recommend to start 20 mEq IV and 40 mEq p.o. I would monitor potassium level closely. I would restart the patient back on Epogen. I would like to check the iron panel and check the calcium, phosphorous, and PTH for evaluation of renal osteodystrophy. I would like to thank, Dr. Holloway, for allowing me to participate in the care of this patient. Brittnee Zhu M.D. DR: ONESIMO JOB#: [id number] CC:
[2017-01-03] VITALS: BP 136/64
[2017-01-03 04:00] VITALS: BP 167/75
[2017-01-03] MEDS: HydrALAZINE 25mg tab ORAL SCH ×3 (06:06→22:21)
[2017-01-03] MEDS: NovoLOG Insulin Flexpen SUBQ SCH ×4 (06:29→21:00)
[2017-01-03 07:27] LABS: BASOPHILS % (AUTO) 0.7 % (0.0-2.0); EOSINOPHILS % (AUTO) 0.9 % (0.0-3.0); LYMPHOCYTES % (AUTO) 10.6 % (20.0-45.0); MEAN CORPUSCULAR HEMOGLOBIN 30.3 PG (27.0-31.0); MEAN CORPUSCULAR HGB CONC 33.7 G/DL (32.0-36.0); MEAN CORPUSCULAR VOLUME 90 FL (80-99); MONOCYTES % (AUTO) 7.5 % (1.0-10.0); NEUTROPHILS % (AUTO) 80.2 % (45.0-75.0); PLATELET COUNT 182 K/UL (150-450); RED BLOOD COUNT 3.45 M/UL (4.20-5.40); RED CELL DISTRIBUTION WIDTH 17.8 % (11.6-14.8); WHITE BLOOD COUNT 8.9 K/UL (4.8-10.8)
[2017-01-03 08:00] VITALS: BP 168/76
[2017-01-03 08:12] LABS: ALANINE AMINOTRANSFERASE 6 U/L (3-33); ALBUMIN/GLOBULIN RATIO 0.7 (1.0-2.7); ANION GAP 14 (5-15); ASPARTATE AMINO TRANSFERASE 19 U/L (5-40); CALCIUM 9.3 mg/dL (8.6-10.2); CARBON DIOXIDE 28 mEQ/L (20-30); CHLORIDE 96 mEQ/L (98-107); CREATININE 3.7 mg/dL (0.5-0.9); GLOMERULAR FILTRATION RATE 14.8 mL/min (>60); HEMOLYSIS 22; POTASSIUM 4.1 mEQ/L (3.4-4.9); SODIUM 138 mEQ/L (135-145)
[2017-01-03] MEDS: Imdur 30mg tab ORAL SCH (08:18)
[2017-01-03] MEDS: Irbesartan 150mg tablet ORAL SCH (08:18)
[2017-01-03] MEDS: Carvedilol 12.5mg tab ORAL SCH ×2 (08:19→22:09)
[2017-01-03] MEDS ORDERED: LR 1000ml 1,000 ML IVLG SCH (09:59)
--- NOTE | 2017-01-03 09:59 | Anethesia Preoperative Eval ---
Anesthesia Pre-op PMH/ROS General Date of Evaluation: Jan 03, 2017 Anesthesiologist: Emma ASA Score: ASA 4 - Emergency Mallampati Score Class I : Soft palate, uvula, fauces, pillars visible Class II: Soft palate, uvula, fauces visible Class III: Soft palate, base of uvula visible Class IV: Only hard plate visible Mallampati Classification: Class II Surgeon: Maggi Diagnosis: Vaginal Bleeding Surgical Procedure: D and C Anesthesia History: none Family History: no anesthesia problems Allergies: Coded Allergies: ASPIRIN (Verified Allergy, Mild, 08/15/10) PENICILLINS (Verified Allergy, Mild, 08/15/10) LEBRON INHIBITORS (Unverified Allergy, Unknown, 01/01/17) ACETAMINOPHEN (Unverified Allergy, Unknown, 09/18/15) patient stated CODEINE (Unverified Allergy, Unknown, 01/01/17) PENICILLIN (Verified Allergy, Unknown, 09/17/15) Medications: see eMAR Past Medical History Cardiovascular: Reports: HTN, other - PVD Gastrointestinal/Genitourinary: Reports: ESRD - Dialysis Neurologic/Psychiatric: Reports: CVA Endocrine: Reports: DM Hematology/Immune: Reports: anemia PSxH Narrative: Bilateral BKA Anesthesia Pre-op Phys. Exam Physician Exam Last Vital Signs Date Time Temp Pulse Resp B/P Pulse Ox O2 Delivery O2 Flow Rate FiO2 01/03/17 08:19 82 168/76 01/03/17 08:00 97.2 17 98 Room Air 01/02/17 10:04 21 Constitutional: NAD Neurologic: CN 2-12 intact Cardiovascular: RRR Respiratory: CTA Gastrointestinal: S/NT/ND Airway Exam Mallampati Score: Class II MO: limited ROM: limited Teeth: missing, intact Anesthesia Pre-op A/P Labs Hematology Test 01/03/17 06:20 White Blood Count 8.9 K/UL (4.8-10.8) # Red Blood Count 3.45 M/UL (4.20-5.40) L Hemoglobin 10.5 G/DL (12.0-16.0) L Hematocrit 31.0 % (37.0-47.0) L Mean Corpuscular Volume 90 FL (80-99) Mean Corpuscular Hemoglobin 30.3 PG (27.0-31.0) Mean Corpuscular Hemoglobin Concent 33.7 G/DL (32.0-36.0) Red Cell Distribution Width 17.8 % (11.6-14.8) H Platelet Count 182 K/UL (150-450) Mean Platelet Volume 8.0 FL (6.5-10.1) Neutrophils (%) (Auto) 80.2 % (45.0-75.0) H Lymphocytes (%) (Auto) 10.6 % (20.0-45.0) L Monocytes (%) (Auto) 7.5 % (1.0-10.0) Eosinophils (%) (Auto) 0.9 % (0.0-3.0) Basophils (%) (Auto) 0.7 % (0.0-2.0) Chemistry Test 01/02/17 14:35 01/03/17 06:20 Potassium Level 2.6 mEQ/L (3.4-4.9) *L 4.1 mEQ/L (3.4-4.9) # Calcium (Send out) Pending Phosphorus Level 2.1 mg/dL (2.5-4.8) L Iron Level 26 ug/dL (37-145) L Total Iron Binding Capacity 99 ug/dL (250-400) L Percent Iron Saturation 26 % (15-50) Unsaturated Iron Binding 73 ug/dL (112-346) L Prealbumin Pending Parathyroid Hormone (Intact) Pending Sodium Level 138 mEQ/L (135-145) Chloride Level 96 mEQ/L (98-107) L Carbon Dioxide Level 28 mEQ/L (20-30) Anion Gap 14 (5-15) Blood Urea Nitrogen 18 mg/dL (7-23) Creatinine 3.7 mg/dL (0.5-0.9) #H Estimat Glomerular Filtration Rate 14.8 mL/min (>60) Glucose Level 121 mg/dL (74-106) H Calcium Level 9.3 mg/dL (8.6-10.2) Total Bilirubin 1.0 mg/dL (0.0-1.2) Aspartate Amino Transf (AST/SGOT) 19 U/L (5-40) Alanine Aminotransferase (ALT/SGPT) 6 U/L (3-33) Alkaline Phosphatase 51 U/L (35-104) Pro-B-Type Natriuretic Peptide > 47824 pg/mL (0-125) H Total Protein 7.0 g/dL (6.6-8.7) Albumin 3.0 g/dL (3.5-5.2) L Globulin 4.0 g/dL Albumin/Globulin Ratio 0.7 (1.0-2.7) L Risk Assessment & Plan Assessment: ASA 4E Plan: GA, BIS Status Change Before Surgery: No Ramon Carter MD Jan 03, 2017 09:59
[2017-01-03] MEDS ORDERED: Atropine Inj 1mg/10ml Syr IV PRN (10:00)
[2017-01-03] MEDS ORDERED: cefTRIAXone 1 GM in D5W 55 ML IVPB ONE (10:00)
[2017-01-03] MEDS ORDERED: Midazolam 2mg/2ml Inj IVP PRN (10:00)
[2017-01-03] MEDS ORDERED: fentaNYL 100 mcg/2 mL IV PRN (10:00)
[2017-01-03] MEDS ORDERED: Oxycodone/Acetaminophen 5-325 ORAL PRN (10:00)
[2017-01-03] MEDS ORDERED: LORazepam Inj 2mg/ml 1ml IV PRN (10:00)
[2017-01-03] MEDS ORDERED: Metoclopramide 10mg/2ml Inj IVP PRN (10:00)
[2017-01-03] MEDS ORDERED: Meperidine 25mg/ml Inj IV PRN (10:00)
[2017-01-03] MEDS ORDERED: Norco 5mg/325mg tab ORAL PRN (10:00)
[2017-01-03] MEDS ORDERED: Labetalol 5mg/ml 20ml vial IV PRN (10:00)
[2017-01-03] MEDS ORDERED: DiphenhydrAMINE 50mg/ml Inj IVP PRN (10:00)
[2017-01-03] MEDS ORDERED: Hydromorphone 0.5mg/0.5ml inj IVP PRN (10:00)
[2017-01-03] MEDS ORDERED: Norco 7.5mg/325mg tab ORAL PRN (10:00)
--- NOTE | 2017-01-03 10:01 | 48 Hour Post Anesthesia Eval ---
Post Anesthesia Evaluation Procedure: D and C Date of Evaluation: Jan 03, 2017 Airway: patent Nausea: No Vomiting: No Pain Intensity: 2 Hydration Status: adequate Cardiopulmonary Status: Stable Mental Status/LOC: patient returned to baseline Follow-up Care/Observations: 0 Post-Anesthesia Complications: 0 Follow-up care needed: N/A Ramon Carter MD Jan 03, 2017 10:01
--- NOTE | 2017-01-03 10:01 | Immediate Post-Op Evaluation ---
Immediate Post-Op Evalulation Immediate Post-Op Evalulation Procedure: D and C Date of Evaluation: Jan 03, 2017 Blood Products: 0 Pain Score (1-10): 2 Nausea: No Vomiting: No Complications 0 Patient Status: awake, reacts, patent, none Hydration Status: adequate Ramon Carter MD Jan 03, 2017 10:01
[2017-01-03] MEDS ORDERED: NS Irrig 1000ml ONE (11:17)
[2017-01-03] MEDS ORDERED: Tubing IV Secondary IV ONE (11:17)
[2017-01-03] MEDS ORDERED: NS 275ml ONE (11:17)
--- NOTE | 2017-01-03 11:17 | Diagnostic Imaging Report ---
Clinical history: Shortness of breath. Technique: Portable AP chest radiograph was obtained. Comparison: 08/26/15. Findings: Lung volumes are low with probable basilar atelectasis. Confluent density at the right lung base may represent atelectasis or pneumonia. There is mild cardiomegaly with scattered interstitial and patchy opacities suggesting mild interstitial edema. Small effusions are present. Probable punctate calcified granuloma is noted in the left midlung. Impression: 1. Cardiomegaly with suspected mild pulmonary edema and trace effusions. 2. Low lung volumes. Right basilar atelectasis or pneumonia.
[2017-01-03 12:00] VITALS: BP 128/60
--- NOTE | 2017-01-03 12:36 | Internal Med Progress Note ---
Subjective Date of Service: Jan 03, 2017 Physician Name Merrill,Nahomy Attending Physician Scotty Wayne MD Current Medications Medications (Trade) Dose Ordered Sig/Angelique Route PRN Reason Start Time Stop Time Status Last Admin Dose Admin Acetaminophen/ Hydrocodone Bitart (Shannon 5/325) 1 tab Q1H PRN ORAL Mild Pain (Pain Scale 1-3) 01/03/17 10:00 01/03/17 14:00 Acetaminophen/ Hydrocodone Bitart (Shannon 7.5/325) 1 ea Q1H PRN ORAL Moderate Pain (Pain Scale 4-6) 01/03/17 10:00 01/03/17 14:00 Al Hydroxide/Mg Hydroxide (Mylanta II) 30 ml Q6H PRN ORAL dyspepsia 01/02/17 10:30 02/01/17 10:29 Al Hydroxide/Mg Hydroxide (Mylanta) 15 ml Q1H PRN ORAL gi upset 01/03/17 10:00 01/03/17 14:00 Albuterol/ Ipratropium (DuoNeb 0.5-3(2.5)mg/3ml) 3 ml Q6H PRN HHN dyspnea 01/02/17 10:30 01/07/17 10:29 Atropine Sulfate 0.5 mg 0.5 mg Q5M PRN IV HR <40 01/03/17 10:00 01/03/17 14:00 Carvedilol (Coreg) 12.5 mg EVERY 12 HOURS ORAL 01/02/17 10:20 02/01/17 10:19 01/03/17 08:19 Dextrose (Dextrose 50%) STAT PRN IV Hypoglycemia 01/02/17 22:30 02/01/17 22:29 Diphenhydramine HCl (Benadryl) 25 mg Q15M PRN IVP Itching 01/03/17 10:00 01/03/17 14:00 Epoetin Tristan (Procrit (for ESRD on dialysis)) 5,000 units WED-WED-WED SUBQ 01/04/17 21:00 02/03/17 20:59 Epoetin Tristan (Procrit (for ESRD on dialysis)) 10,000 units WED-WED-WED SUBQ 01/04/17 21:00 02/03/17 20:59 Fentanyl Citrate (Sublimaze 100 mcg/2 mL) 25 mcg Q10M PRN IV Moderate Pain (Pain Scale 4-6) 01/03/17 10:00 01/03/17 14:00 Hydralazine HCl (Apresoline) 5 mg Q30M PRN IV SBP>160 / DBP>90 01/03/17 10:00 01/03/17 14:00 Hydralazine HCl (Apresoline) 75 mg Q12HR ORAL 01/03/17 06:00 02/02/17 05:59 01/03/17 06:06 Hydromorphone HCl (Dilaudid) 0.5 mg Q15M PRN IVP Severe Pain (Pain Scale 7-10) 01/03/17 10:00 01/03/17 14:00 Insulin Aspart (NovoLOG) BEFORE MEALS AND HS SUBQ 01/02/17 11:30 02/01/17 11:29 01/03/17 12:16 Irbesartan (Avapro) 300 mg DAILY ORAL 01/02/17 09:00 02/01/17 08:59 01/03/17 08:18 Isosorbide Mononitrate (Imdur) 30 mg DAILY ORAL 01/02/17 09:00 02/01/17 08:59 01/03/17 08:18 Labetalol HCl (Normodyne) 5 mg Q10M PRN IV SBP>160 / DBP>90 01/03/17 10:00 01/03/17 14:00 Lactated Ringer's (Lactated Ringer's 1000ml) 1,000 ml @ 10 mls/hr Q24H IVLG 01/03/17 09:59 01/03/17 14:00 Lorazepam (Ativan 2mg/ml 1ml) 1 mg Q15M PRN IV For Anxiety 01/03/17 10:00 01/03/17 14:00 Meperidine HCl (Demerol) 25 mg Q5M PRN IV Shivering. May repeat x 1 01/03/17 10:00 01/03/17 14:00 Metoclopramide HCl (Reglan) 10 mg Q1H PRN IVP Nausea & Vomiting 01/03/17 10:00 01/03/17 14:00 Midazolam HCl (Versed 2mg/2ml vial) 1 mg Q15M PRN IVP For Anxiety 01/03/17 10:00 01/03/17 14:00 Ondansetron HCl (Zofran) 4 mg Q1H PRN IVP Nausea & Vomiting 01/03/17 10:00 01/03/17 14:00 Ondansetron HCl (Zofran) 4 mg Q6H PRN IVP Nausea & Vomiting 01/02/17 10:30 02/01/17 10:29 Oxycodone/ Acetaminophen (Percocet 5-325) 1 tab Q1H PRN ORAL Severe Pain (Pain Scale 7-10) 01/03/17 10:00 01/03/17 14:00 Polyethylene Glycol (Miralax) 17 gm HSPRN PRN ORAL Constipation 01/02/17 22:30 02/01/17 22:29 Pravastatin Sodium (Pravachol) 40 mg BEDTIME ORAL 01/02/17 21:00 02/01/17 20:59 01/02/17 21:41 Zolpidem Tartrate (Ambien) 5 mg HSPRN PRN ORAL Insomnia 01/02/17 22:30 02/01/17 22:29 01/02/17 22:09 Allergies: Coded Allergies: ASPIRIN (Verified Allergy, Mild, 08/15/10) PENICILLINS (Verified Allergy, Mild, 08/15/10) LEBRON INHIBITORS (Unverified Allergy, Unknown, 01/01/17) ACETAMINOPHEN (Unverified Allergy, Unknown, 09/18/15) patient stated CODEINE (Unverified Allergy, Unknown, 01/01/17) PENICILLIN (Verified Allergy, Unknown, 09/17/15) ROS Limited/Unobtainable: No Constitutional: Reports: no symptoms HEENT: Reports: no symptoms Cardiovascular: Reports: no symptoms Respiratory: Reports: no symptoms Gastrointestinal/Abdominal: Reports: no symptoms Genitourinary: Reports: hematuria Neurologic/Psychiatric: Reports: no symptoms Subjective 66 YO F admitted with hematuria and vaginal bleeding. S/P pelvic exam under anesthesia 01/03/17. Cover for Ally Parikh-Dr Wayne. Objective Last Vital Signs Date Time Temp Pulse Resp B/P Pulse Ox O2 Delivery O2 Flow Rate FiO2 01/03/17 08:19 82 168/76 01/03/17 08:00 97.2 17 98 Room Air 01/02/17 10:04 21 General Appearance: moderate distress, cachetic, thin EENT: PERRL/EOMI, normal ENT inspection, TMs normal Neck: non-tender, normal alignment, supple Cardiovascular: normal peripheral pulses, normal rate, regular rhythm, no gallop/murmur, no JVD Respiratory/Chest: chest wall non-tender, lungs clear, normal breath sounds, no respiratory distress, no accessory muscle use Abdomen: normal bowel sounds, non tender, soft, no organomegaly, no mass Extremities: other - Bilateral BKA 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 Skin: normal pigmentation, warm/dry Laboratory Tests Test 01/02/17 14:35 01/03/17 06:20 Potassium Level 2.6 mEQ/L (3.4-4.9) *L 4.1 mEQ/L (3.4-4.9) # Calcium (Send out) Pending Phosphorus Level 2.1 mg/dL (2.5-4.8) L Iron Level 26 ug/dL (37-145) L Total Iron Binding Capacity 99 ug/dL (250-400) L Percent Iron Saturation 26 % (15-50) Unsaturated Iron Binding 73 ug/dL (112-346) L Prealbumin 7 mg/dL (10-36) L Parathyroid Hormone (Intact) Pending White Blood Count 8.9 K/UL (4.8-10.8) # Red Blood Count 3.45 M/UL (4.20-5.40) L Hemoglobin 10.5 G/DL (12.0-16.0) L Hematocrit 31.0 % (37.0-47.0) L Mean Corpuscular Volume 90 FL (80-99) Mean Corpuscular Hemoglobin 30.3 PG (27.0-31.0) Mean Corpuscular Hemoglobin Concent 33.7 G/DL (32.0-36.0) Red Cell Distribution Width 17.8 % (11.6-14.8) H Platelet Count 182 K/UL (150-450) Mean Platelet Volume 8.0 FL (6.5-10.1) Neutrophils (%) (Auto) 80.2 % (45.0-75.0) H Lymphocytes (%) (Auto) 10.6 % (20.0-45.0) L Monocytes (%) (Auto) 7.5 % (1.0-10.0) Eosinophils (%) (Auto) 0.9 % (0.0-3.0) Basophils (%) (Auto) 0.7 % (0.0-2.0) Sodium Level 138 mEQ/L (135-145) Chloride Level 96 mEQ/L (98-107) L Carbon Dioxide Level 28 mEQ/L (20-30) Anion Gap 14 (5-15) Blood Urea Nitrogen 18 mg/dL (7-23) Creatinine 3.7 mg/dL (0.5-0.9) #H Estimat Glomerular Filtration Rate 14.8 mL/min (>60) Glucose Level 121 mg/dL (74-106) H Calcium Level 9.3 mg/dL (8.6-10.2) Total Bilirubin 1.0 mg/dL (0.0-1.2) Aspartate Amino Transf (AST/SGOT) 19 U/L (5-40) Alanine Aminotransferase (ALT/SGPT) 6 U/L (3-33) Alkaline Phosphatase 51 U/L (35-104) Pro-B-Type Natriuretic Peptide > 39474 pg/mL (0-125) H Total Protein 7.0 g/dL (6.6-8.7) Albumin 3.0 g/dL (3.5-5.2) L Globulin 4.0 g/dL Albumin/Globulin Ratio 0.7 (1.0-2.7) L Intake and Output 01/02/17 01/03/17 19:00 07:00 Output Total 25 ml Balance -25 ml Output Urine Total 25 ml # Voids 2 # Bowel Movements 2 1 Assessment/Plan Problem List: (1) Bladder mass Assessment & Plan: Hematoma-See urology note. (2) Dysfunctional uterine bleeding Assessment & Plan: S/P pelvic exam under anesthesia-see GOL[employer] PLAY[employer] ASSISTANT note. (3) Severe anemia (4) Hypokalemia Assessment & Plan: S/P replacement. (5) ESRD on hemodialysis Assessment & Plan: See nephrology note. 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 Status: not improved NAHOMY MERRILL Jan 03, 2017 12:36
--- NOTE | 2017-01-03 15:48 | Nephrology Progress Note ---
Assessment/Plan Assessment 1. Severe hypokalemia. resolved 2. End-stage renal disease. 3. Anemia of chronic kidney disease. 4. Hematuria. 5. Questionable bladder CA when there was urinary tract infection. 6. Hypertension, which is uncontrolled at this time. 7.malnutrition Plan dialysis in am continue epogen check H&H nutritional support prealbumin of no need for phosphate binder Subjective Constitutional: Reports: no symptoms HEENT: Reports: no symptoms Genitourinary: Reports: hematuria, pain Neurologic/Psychiatric: Reports: no symptoms Subjective awake confused Objective Objective Last 24 Hour Vital Signs Date Time Temp Pulse Resp B/P Pulse Ox O2 Delivery O2 Flow Rate FiO2 01/03/17 12:00 96.8 94 16 128/60 97 Room Air 01/03/17 12:00 76 01/03/17 08:19 82 168/76 01/03/17 08:18 168/76 01/03/17 08:18 168/76 01/03/17 08:00 82 01/03/17 08:00 97.2 83 17 168/76 98 Room Air 01/03/17 07:50 81 18 Room Air 01/03/17 06:06 153/66 01/03/17 04:00 82 01/03/17 04:00 97.5 82 16 167/75 99 Room Air 01/03/17 00:00 97.5 81 16 136/64 98 Room Air 01/03/17 00:00 82 01/02/17 21:42 85 154/66 01/02/17 21:41 154/66 01/02/17 20:00 85 18 Room Air 01/02/17 20:00 97.7 83 21 154/66 99 Room Air 01/02/17 16:00 97.8 82 19 129/62 97 Room Air Intake and Output 01/02/17 01/03/17 19:00 07:00 Output Total 25 ml Balance -25 ml Output Urine Total 25 ml # Voids 2 # Bowel Movements 2 1 Laboratory Tests 01/03/17 06:20: White Blood Count 8.9#, Red Blood Count 3.45L, Hemoglobin 10.5L, Hematocrit 31.0L, Mean Corpuscular Volume 90, Mean Corpuscular Hemoglobin 30.3, Mean Corpuscular Hemoglobin Concent 33.7, Red Cell Distribution Width 17.8H, Platelet Count 182, Mean Platelet Volume 8.0, Neutrophils (%) (Auto) 80.2H, Lymphocytes (%) (Auto) 10.6L, Monocytes (%) (Auto) 7.5, Eosinophils (%) (Auto) 0.9, Basophils (%) (Auto) 0.7, Sodium Level 138, Potassium Level 4.1#, Chloride Level 96L, Carbon Dioxide Level 28, Anion Gap 14, Blood Urea Nitrogen 18, Creatinine 3.7#H, Estimat Glomerular Filtration Rate 14.8, Glucose Level 121H, Calcium Level 9.3, Total Bilirubin 1.0, Aspartate Amino Transf (AST/SGOT) 19, Alanine Aminotransferase (ALT/SGPT) 6, Alkaline Phosphatase 51, Pro-B-Type Natriuretic Peptide > 96111A, Total Protein 7.0, Albumin 3.0L, Globulin 4.0, Albumin/Globulin Ratio 0.7L Height (Feet): 4 Height (Inches): 5.00 Weight (Pounds): 99 Objective HEAD AND NECK: No JVP. No LAD. No thyromegaly. Extraocular movement intact. Pupils are reactive to light and accommodation. LUNGS: Decreased breathing sounds. CARDIAC: Regular rate and rhythm. S1-S2. No murmur. No rub. ABDOMEN: Soft and nontender. EXTREMITIES: She has bilateral lower extremity amputation and has a Andrew catheter. It has blood in it. KALINA WELLS Jan 03, 2017 15:48
[2017-01-03 16:00] VITALS: BP 145/71
--- NOTE | 2017-01-03 18:32 | Cardiology Report ---
APPROVED REPORT EKG Measurement Heart [id number] Normal sinus rhythm Possible Left atrial enlargement Incomplete left bundle branch block Marked ST abnormality, possible lateral subendocardial injury Prolonged QT Abnormal ECG
[2017-01-03] MEDS ORDERED: traMADol 50mg tab ORAL PRN (19:45)
[2017-01-03 20:00] VITALS: BP 150/64
--- NOTE | 2017-01-03 20:58 | Progress Note ---
DATE: 01/03/2017 SUBJECTIVE: No events overnight. The patient with continued gross hematuria. OBJECTIVE: VITAL SIGNS: Afebrile. Vital signs stable with blood pressure 168/76. ABDOMEN: Soft, flat, nontender, and nondistended. GENITOURINARY: Andrew catheter in place with continued bloody clots in urine output. EXTREMITIES: Warm and well perfused. No cyanosis, clubbing, or edema. LABORATORY DATA: White blood cell count 8.9, hematocrit 31, platelets 182,000. Sodium 138, potassium 4.1, chloride 96, bicarb 28, BUN 18, creatinine 3.7, glucose 121. ASSESSMENT AND PLAN: The patient is an 66-year-old female with history of ESRD on dialysis, presenting with gross hematuria. Catheter changed and bladder irrigated out but with continued gross hematuria despite same. Previous CT scan with massive bladder consistent with clot, otherwise no upper tract obvious source of same. If the patient's hematuria does not improve over the next 24 hours, will need inpatient cystoscopy to further evaluate the same. Jcarlos Monaco M.D. DR: Omayra JOB#: [id number] CC:
--- NOTE | 2017-01-03 22:27 | Pulmonology Progress Note ---
Assessment/Plan Problems: (1) Symptomatic anemia (2) Bladder hemorrhage (3) Uterine hemorrhage (4) ESRF (end stage renal failure) (5) DM renal manif type II Subjective Allergies: Coded Allergies: ASPIRIN (Verified Allergy, Mild, 08/15/10) PENICILLINS (Verified Allergy, Mild, 08/15/10) LEBRON INHIBITORS (Unverified Allergy, Unknown, 01/01/17) ACETAMINOPHEN (Unverified Allergy, Unknown, 09/18/15) patient stated CODEINE (Unverified Allergy, Unknown, 01/01/17) PENICILLIN (Verified Allergy, Unknown, 09/17/15) Objective Last 24 Hour Vital Signs Date Time Temp Pulse Resp B/P Pulse Ox O2 Delivery O2 Flow Rate FiO2 01/03/17 22:21 164/74 01/03/17 22:09 84 164/74 01/03/17 20:00 97.7 79 21 150/64 99 Room Air 01/03/17 19:21 79 18 Room Air 01/03/17 19:06 146/61 01/03/17 16:00 97.2 81 20 145/71 98 Room Air 01/03/17 12:00 96.8 94 16 128/60 97 Room Air 01/03/17 12:00 76 01/03/17 08:19 82 168/76 01/03/17 08:18 168/76 01/03/17 08:18 168/76 01/03/17 08:00 82 01/03/17 08:00 97.2 83 17 168/76 98 Room Air 01/03/17 07:50 81 18 Room Air 01/03/17 06:06 153/66 01/03/17 04:00 82 01/03/17 04:00 97.5 82 16 167/75 99 Room Air 01/03/17 00:00 97.5 81 16 136/64 98 Room Air 01/03/17 00:00 82 Intake and Output 01/02/17 01/03/17 19:00 07:00 Output Total 25 ml Balance -25 ml Output Urine Total 25 ml # Voids 2 # Bowel Movements 2 1 Laboratory Tests 01/03/17 06:20: White Blood Count 8.9#, Red Blood Count 3.45L, Hemoglobin 10.5L, Hematocrit 31.0L, Mean Corpuscular Volume 90, Mean Corpuscular Hemoglobin 30.3, Mean Corpuscular Hemoglobin Concent 33.7, Red Cell Distribution Width 17.8H, Platelet Count 182, Mean Platelet Volume 8.0, Neutrophils (%) (Auto) 80.2H, Lymphocytes (%) (Auto) 10.6L, Monocytes (%) (Auto) 7.5, Eosinophils (%) (Auto) 0.9, Basophils (%) (Auto) 0.7, Sodium Level 138, Potassium Level 4.1#, Chloride Level 96L, Carbon Dioxide Level 28, Anion Gap 14, Blood Urea Nitrogen 18, Creatinine 3.7#H, Estimat Glomerular Filtration Rate 14.8, Glucose Level 121H, Calcium Level 9.3, Total Bilirubin 1.0, Aspartate Amino Transf (AST/SGOT) 19, Alanine Aminotransferase (ALT/SGPT) 6, Alkaline Phosphatase 51, Pro-B-Type Natriuretic Peptide > 81280U, Total Protein 7.0, Albumin 3.0L, Globulin 4.0, Albumin/Globulin Ratio 0.7L Current Medications Medications (Trade) Dose Ordered Sig/Angelique Route PRN Reason Start Time Stop Time Status Last Admin Dose Admin Al Hydroxide/Mg Hydroxide (Mylanta II) 30 ml Q6H PRN ORAL dyspepsia 01/02/17 10:30 02/01/17 10:29 Albuterol/ Ipratropium (DuoNeb 0.5-3(2.5)mg/3ml) 3 ml Q6H PRN HHN dyspnea 01/02/17 10:30 01/07/17 10:29 Carvedilol (Coreg) 12.5 mg EVERY 12 HOURS ORAL 01/02/17 10:20 02/01/17 10:19 01/03/17 22:09 Dextrose (Dextrose 50%) STAT PRN IV Hypoglycemia 01/02/17 22:30 02/01/17 22:29 Epoetin Tristan (Procrit (for ESRD on dialysis)) 10,000 units WED-WED-WED SUBQ 01/04/17 21:00 02/03/17 20:59 Hydralazine HCl (Apresoline) 75 mg Q12HR ORAL 01/03/17 06:00 02/02/17 05:59 01/03/17 22:21 Insulin Aspart (NovoLOG) BEFORE MEALS AND HS SUBQ 01/02/17 11:30 02/01/17 11:29 01/03/17 16:30 Irbesartan (Avapro) 300 mg DAILY ORAL 01/02/17 09:00 02/01/17 08:59 01/03/17 08:18 Isosorbide Mononitrate (Imdur) 30 mg DAILY ORAL 01/02/17 09:00 02/01/17 08:59 01/03/17 08:18 Ondansetron HCl (Zofran) 4 mg Q6H PRN IVP Nausea & Vomiting 01/02/17 10:30 02/01/17 10:29 Polyethylene Glycol (Miralax) 17 gm HSPRN PRN ORAL Constipation 01/02/17 22:30 02/01/17 22:29 Pravastatin Sodium (Pravachol) 40 mg BEDTIME ORAL 01/02/17 21:00 02/01/17 20:59 01/03/17 22:08 Tramadol HCl (Ultram) 50 mg Q6H PRN ORAL For Pain 01/03/17 19:45 01/10/17 19:44 01/03/17 22:10 Zolpidem Tartrate (Ambien) 5 mg HSPRN PRN ORAL Insomnia 01/02/17 22:30 02/01/17 22:29 01/02/17 22:09 ELIA MARADIAGA Jan 03, 2017 22:27
[2017-01-04 00:10] VITALS: BP 165/78
[2017-01-04 04:13] VITALS: BP 169/73
[2017-01-04] MEDS: NovoLOG Insulin Flexpen SUBQ SCH ×4 (06:30→20:21)
[2017-01-04 06:45] LABS: ALBUMIN/GLOBULIN RATIO 0.7 (1.0-2.7); CALCIUM 9.1 mg/dL (8.6-10.2); CREATININE 2.7 mg/dL (0.5-0.9); GLOMERULAR FILTRATION RATE 21.3 mL/min (>60); POTASSIUM 3.9 mEQ/L (3.4-4.9); TOTAL PROTEIN 6.9 g/dL (6.6-8.7)
[2017-01-04 07:08] LABS: BASOPHILS % (AUTO) 0.8 % (0.0-2.0); LYMPHOCYTES % (AUTO) 8.3 % (20.0-45.0); MEAN CORPUSCULAR HEMOGLOBIN 30.1 PG (27.0-31.0); MEAN CORPUSCULAR HGB CONC 33.3 G/DL (32.0-36.0); MEAN CORPUSCULAR VOLUME 90 FL (80-99); MEAN PLATELET VOLUME 9.3 FL (6.5-10.1); NEUTROPHILS % (AUTO) 82.9 % (45.0-75.0); PLATELET COUNT 213 K/UL (150-450); RED BLOOD COUNT 3.05 M/UL (4.20-5.40); RED CELL DISTRIBUTION WIDTH 17.9 % (11.6-14.8); WHITE BLOOD COUNT 10.1 K/UL (4.8-10.8)
[2017-01-04 08:00] VITALS: BP 163/71
[2017-01-04] MEDS: Carvedilol 12.5mg tab ORAL SCH ×2 (10:28→20:19)
[2017-01-04] MEDS: Imdur 30mg tab ORAL SCH (10:28)
[2017-01-04] MEDS: HydrALAZINE 25mg tab ORAL SCH ×2 (10:28→20:20)
[2017-01-04] MEDS: Irbesartan 150mg tablet ORAL SCH (10:29)
[2017-01-04] MEDS ORDERED: DuoNeb 0.5-3(2.5)mg/3ml neb HHN PRN (10:30)
[2017-01-04] MEDS ORDERED: Mylanta II UD 30ml ORAL PRN (10:30)
--- NOTE | 2017-01-04 10:55 | Internal Med Progress Note ---
Subjective Date of Service: Jan 04, 2017 Physician Name Nahomy Merrill Attending Physician Scotty Wayne MD Current Medications Medications (Trade) Dose Ordered Sig/Angelique Route PRN Reason Start Time Stop Time Status Last Admin Dose Admin Al Hydroxide/Mg Hydroxide (Mylanta II) 30 ml Q6H PRN ORAL dyspepsia 01/04/17 10:30 02/03/17 10:29 Albuterol/ Ipratropium (DuoNeb 0.5-3(2.5)mg/3ml) 3 ml Q6H PRN HHN dyspnea 01/04/17 10:30 01/09/17 10:29 Carvedilol (Coreg) 12.5 mg EVERY 12 HOURS ORAL 01/04/17 09:00 02/03/17 08:59 01/04/17 10:28 Dextrose (Dextrose 50%) STAT PRN IV Hypoglycemia 01/04/17 22:30 02/03/17 22:29 Epoetin Tristan (Procrit (for ESRD on dialysis)) 10,000 units WED-WED-WED SUBQ 01/04/17 21:00 02/03/17 20:59 Hydralazine HCl (Apresoline) 75 mg Q12HR ORAL 01/04/17 09:00 02/03/17 08:59 01/04/17 10:28 Insulin Aspart (NovoLOG) BEFORE MEALS AND HS SUBQ 01/04/17 06:30 02/03/17 06:29 Irbesartan (Avapro) 300 mg DAILY ORAL 01/04/17 09:00 02/03/17 08:59 01/04/17 10:29 Isosorbide Mononitrate (Imdur) 30 mg DAILY ORAL 01/04/17 09:00 02/03/17 08:59 01/04/17 10:28 Ondansetron HCl (Zofran) 4 mg Q6H PRN IVP Nausea & Vomiting 01/04/17 10:30 02/03/17 10:29 Polyethylene Glycol (Miralax) 17 gm HSPRN PRN ORAL Constipation 01/04/17 22:30 02/03/17 22:29 Pravastatin Sodium (Pravachol) 40 mg BEDTIME ORAL 01/04/17 21:00 02/03/17 20:59 Tramadol HCl (Ultram) 50 mg Q6H PRN ORAL For Pain 01/04/17 07:45 01/11/17 07:44 Zolpidem Tartrate (Ambien) 5 mg HSPRN PRN ORAL Insomnia 01/04/17 22:30 02/03/17 22:29 Allergies: Coded Allergies: ASPIRIN (Verified Allergy, Mild, 08/15/10) PENICILLINS (Verified Allergy, Mild, 08/15/10) LEBRON INHIBITORS (Unverified Allergy, Unknown, 01/01/17) ACETAMINOPHEN (Unverified Allergy, Unknown, 09/18/15) patient stated CODEINE (Unverified Allergy, Unknown, 01/01/17) PENICILLIN (Verified Allergy, Unknown, 09/17/15) ROS Limited/Unobtainable: No Constitutional: Reports: no symptoms HEENT: Reports: no symptoms Cardiovascular: Reports: no symptoms Respiratory: Reports: no symptoms Gastrointestinal/Abdominal: Reports: no symptoms Genitourinary: Reports: other - hematuria Neurologic/Psychiatric: Reports: no symptoms Subjective 66 YO F admitted with hematuria and vaginal bleeding. Pelvic exam under anesthesia cancelled. May require cystoscopy for hematuria. Cover for Int Med- Dr Wayne. Objective Last Vital Signs Date Time Temp Pulse Resp B/P Pulse Ox O2 Delivery O2 Flow Rate FiO2 01/04/17 10:29 163/71 01/04/17 10:28 82 01/04/17 08:00 97.7 20 99 Room Air 01/02/17 10:04 21 Laboratory Tests Test 01/04/17 04:15 01/04/17 06:00 White Blood Count 10.1 K/UL (4.8-10.8) Red Blood Count 3.05 M/UL (4.20-5.40) L Hemoglobin 9.2 G/DL (12.0-16.0) L Hematocrit 27.5 % (37.0-47.0) L Mean Corpuscular Volume 90 FL (80-99) Mean Corpuscular Hemoglobin 30.1 PG (27.0-31.0) Mean Corpuscular Hemoglobin Concent 33.3 G/DL (32.0-36.0) Red Cell Distribution Width 17.9 % (11.6-14.8) H Platelet Count 213 K/UL (150-450) Mean Platelet Volume 9.3 FL (6.5-10.1) Neutrophils (%) (Auto) 82.9 % (45.0-75.0) H Lymphocytes (%) (Auto) 8.3 % (20.0-45.0) L Monocytes (%) (Auto) 7.0 % (1.0-10.0) Eosinophils (%) (Auto) 1.0 % (0.0-3.0) Basophils (%) (Auto) 0.8 % (0.0-2.0) Sodium Level 140 mEQ/L (135-145) Potassium Level 3.9 mEQ/L (3.4-4.9) Chloride Level 95 mEQ/L (98-107) L Carbon Dioxide Level 30 mEQ/L (20-30) Anion Gap 15 (5-15) Blood Urea Nitrogen 13 mg/dL (7-23) Creatinine 2.7 mg/dL (0.5-0.9) H Estimat Glomerular Filtration Rate 21.3 mL/min (>60) Glucose Level 99 mg/dL (74-106) Calcium Level 9.1 mg/dL (8.6-10.2) Total Bilirubin 0.7 mg/dL (0.0-1.2) Aspartate Amino Transf (AST/SGOT) 18 U/L (5-40) Alanine Aminotransferase (ALT/SGPT) 7 U/L (3-33) Alkaline Phosphatase 52 U/L (35-104) Total Protein 6.9 g/dL (6.6-8.7) Albumin 3.0 g/dL (3.5-5.2) L Globulin 3.9 g/dL Albumin/Globulin Ratio 0.7 (1.0-2.7) L Intake and Output 01/03/17 01/04/17 19:00 07:00 Intake Total 615 ml Output Total 230 ml Balance 385 ml Intake Oral 560 ml IV Total 55 ml Output Urine Total 230 ml # Voids 100 # Bowel Movements 1 Objective General Appearance: moderate distress, cachetic, thin EENT: PERRL/EOMI, normal ENT inspection, TMs normal Neck: non-tender, normal alignment, supple Cardiovascular: normal peripheral pulses, normal rate, regular rhythm, no gallop/murmur, no JVD Respiratory/Chest: chest wall non-tender, lungs clear, normal breath sounds, no respiratory distress, no accessory muscle use Abdomen: normal bowel sounds, non tender, soft, no organomegaly, no mass Extremities: other - Bilateral BKA 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 (3) Severe anemia (4) Hypokalemia Assessment & Plan: S/P replacement. (5) ESRD on hemodialysis Assessment & Plan: See nephrology note. Dialysis today, Wednesday01/04/17 (6) Scleroderma (7) Cerebral vascular disease (8) Expressive aphasia (9) Below knee amputation status (10) Necrosis of finger (11) ESRD (end stage renal disease) (12) HTN (hypertension) Assessment & Plan: Cont avapro and hydralazine. (13) Hematuria Assessment & Plan: May require cystoscopy-see urology note. Status: not improved NAHOMY MERRILL Jan 04, 2017 10:55
[2017-01-04 12:00] VITALS: BP 151/70
--- NOTE | 2017-01-04 15:08 | Anethesia Preoperative Eval ---
Anesthesia Pre-op PMH/ROS General Date of Evaluation: Jan 04, 2017 Time of Evaluation: 15:00 Anesthesiologist: Kanchan ASA Score: ASA 4 Mallampati Score Class I : Soft palate, uvula, fauces, pillars visible Class II: Soft palate, uvula, fauces visible Class III: Soft palate, base of uvula visible Class IV: Only hard plate visible Mallampati Classification: Class II Surgeon: Julia Diagnosis: Vaginal bleeding Surgical Procedure: TURBT, cystoscopy Family History: no anesthesia problems Allergies: Coded Allergies: ASPIRIN (Verified Allergy, Mild, 08/15/10) PENICILLINS (Verified Allergy, Mild, 08/15/10) LEBRON INHIBITORS (Unverified Allergy, Unknown, 01/01/17) ACETAMINOPHEN (Unverified Allergy, Unknown, 09/18/15) patient stated CODEINE (Unverified Allergy, Unknown, 01/01/17) PENICILLIN (Verified Allergy, Unknown, 09/17/15) Past Medical History Cardiovascular: Reports: HTN Gastrointestinal/Genitourinary: Reports: ESRD Neurologic/Psychiatric: Reports: CVA Endocrine: Reports: DM Hematology/Immune: Reports: anemia PMH Narrative: HTN, ESRD, CVA, DM, anemia PSxH Narrative: Bilateral BKA, Cholecystectomy Anesthesia Pre-op Phys. Exam Physician Exam Last Vital Signs Date Time Temp Pulse Resp B/P Pulse Ox O2 Delivery O2 Flow Rate FiO2 01/04/17 12:00 98.2 79 20 151/70 99 Room Air 01/02/17 10:04 21 Constitutional: NAD Neurologic: CN 2-12 intact Cardiovascular: RRR, no M/R/G Respiratory: CTA Gastrointestinal: S/NT/ND Airway Exam Mallampati Score: Class II MO: full ROM: full Anesthesia Pre-op A/P Labs Hematology Test 01/04/17 04:15 White Blood Count 10.1 K/UL (4.8-10.8) Red Blood Count 3.05 M/UL (4.20-5.40) L Hemoglobin 9.2 G/DL (12.0-16.0) L Hematocrit 27.5 % (37.0-47.0) L Mean Corpuscular Volume 90 FL (80-99) Mean Corpuscular Hemoglobin 30.1 PG (27.0-31.0) Mean Corpuscular Hemoglobin Concent 33.3 G/DL (32.0-36.0) Red Cell Distribution Width 17.9 % (11.6-14.8) H Platelet Count 213 K/UL (150-450) Mean Platelet Volume 9.3 FL (6.5-10.1) Neutrophils (%) (Auto) 82.9 % (45.0-75.0) H Lymphocytes (%) (Auto) 8.3 % (20.0-45.0) L Monocytes (%) (Auto) 7.0 % (1.0-10.0) Eosinophils (%) (Auto) 1.0 % (0.0-3.0) Basophils (%) (Auto) 0.8 % (0.0-2.0) Chemistry Test 01/04/17 06:00 Sodium Level 140 mEQ/L (135-145) Potassium Level 3.9 mEQ/L (3.4-4.9) Chloride Level 95 mEQ/L (98-107) L Carbon Dioxide Level 30 mEQ/L (20-30) Anion Gap 15 (5-15) Blood Urea Nitrogen 13 mg/dL (7-23) Creatinine 2.7 mg/dL (0.5-0.9) H Estimat Glomerular Filtration Rate 21.3 mL/min (>60) Glucose Level 99 mg/dL (74-106) Calcium Level 9.1 mg/dL (8.6-10.2) Total Bilirubin 0.7 mg/dL (0.0-1.2) Aspartate Amino Transf (AST/SGOT) 18 U/L (5-40) Alanine Aminotransferase (ALT/SGPT) 7 U/L (3-33) Alkaline Phosphatase 52 U/L (35-104) Total Protein 6.9 g/dL (6.6-8.7) Albumin 3.0 g/dL (3.5-5.2) L Globulin 3.9 g/dL Albumin/Globulin Ratio 0.7 (1.0-2.7) L Studies Pre-op Studies: EKG - SR, IRBBB, ST abnormalitites possible subendocardial injury Risk Assessment & Plan Assessment: Vaginal bleeding for 3 days scheduled for cystoscopy and TURBT. CT shows large bladder clot. Plan: NATALIE, LMCrescencio Status Change Before Surgery: No - Follow [facility] WIL REICH M.D. Jan 04, 2017 15:08
--- NOTE | 2017-01-04 15:45 | Nephrology Progress Note ---
Assessment/Plan Assessment 1. Severe hypokalemia. resolved 2. End-stage renal disease. 3. Anemia of chronic kidney disease. 4. Hematuria. 5. Questionable bladder CA when there was urinary tract infection. 6. Hypertension, which is uncontrolled at this time. 7.malnutrition Plan dialysis in am continue epogen check H&H nutritional support prealbumin of no need for phosphate binder Subjective Constitutional: Reports: no symptoms HEENT: Reports: no symptoms Genitourinary: Reports: no symptoms Neurologic/Psychiatric: Reports: no symptoms Subjective awake confused treatment this morning had dialysis Objective Objective Last 24 Hour Vital Signs Date Time Temp Pulse Resp B/P Pulse Ox O2 Delivery O2 Flow Rate FiO2 01/04/17 12:00 98.2 79 20 151/70 99 Room Air 01/04/17 10:29 163/71 01/04/17 10:28 163/71 01/04/17 10:28 163/71 01/04/17 10:28 82 163/71 01/04/17 08:00 97.7 82 20 163/71 99 Room Air 01/04/17 07:54 Room Air 01/04/17 07:00 81 18 Room Air 01/04/17 04:30 Room Air 01/04/17 04:13 98.1 95 20 169/73 96 Room Air 01/04/17 00:10 98.4 83 20 165/78 100 Room Air 01/04/17 00:00 85 01/03/17 22:21 164/74 01/03/17 22:09 84 164/74 01/03/17 20:00 81 01/03/17 20:00 97.7 79 21 150/64 99 Room Air 01/03/17 19:21 79 18 Room Air 01/03/17 19:06 146/61 01/03/17 16:00 97.2 81 20 145/71 98 Room Air 01/03/17 16:00 80 Intake and Output 01/03/17 01/04/17 19:00 07:00 Intake Total 615 ml Output Total 230 ml Balance 385 ml Intake Oral 560 ml IV Total 55 ml Output Urine Total 230 ml # Voids 100 # Bowel Movements 1 Laboratory Tests 01/04/17 04:15: White Blood Count 10.1, Red Blood Count 3.05L, Hemoglobin 9.2L, Hematocrit 27.5L , Mean Corpuscular Volume 90, Mean Corpuscular Hemoglobin 30.1, Mean Corpuscular Hemoglobin Concent 33.3, Red Cell Distribution Width 17.9H, Platelet Count 213, Mean Platelet Volume 9.3, Neutrophils (%) (Auto) 82.9H, Lymphocytes (%) (Auto) 8.3L, Monocytes (%) (Auto) 7.0, Eosinophils (%) (Auto) 1.0, Basophils (%) (Auto) 0.8 01/04/17 06:00: Sodium Level 140, Potassium Level 3.9, Chloride Level 95L, Carbon Dioxide Level 30, Anion Gap 15, Blood Urea Nitrogen 13, Creatinine 2.7H, Estimat Glomerular Filtration Rate 21.3, Glucose Level 99, Calcium Level 9.1, Total Bilirubin 0.7, Aspartate Amino Transf (AST/SGOT) 18, Alanine Aminotransferase (ALT/SGPT) 7, Alkaline Phosphatase 52, Total Protein 6.9, Albumin 3.0L, Globulin 3.9, Albumin/ Globulin Ratio 0.7L Height (Feet): 4 Height (Inches): 5.00 Weight (Pounds): 99 Objective HEAD AND NECK: No JVP. No LAD. No thyromegaly. Extraocular movement intact. Pupils are reactive to light and accommodation. LUNGS: Decreased breathing sounds. CARDIAC: Regular rate and rhythm. S1-S2. No murmur. No rub. ABDOMEN: Soft and nontender. EXTREMITIES: She has bilateral lower extremity amputation and has a Andrew catheter. It has blood in it. KALINA WELLS Jan 04, 2017 15:45
[2017-01-04 16:00] VITALS: BP 153/68
[2017-01-04 19:00] VITALS: BP 129/59
[2017-01-04] MEDS: Epogen (for ESRD on dialysis) SUBQ SCH (20:21)
[2017-01-04] MEDS ORDERED: Epogen (for ESRD on dialysis) SUBQ SCH ×2 (21:00)
[2017-01-04] MEDS ORDERED: Miralax 17gm pkt ORAL PRN (22:30)
[2017-01-04] MEDS ORDERED: Zolpidem 5mg tab ORAL PRN (22:30)
--- NOTE | 2017-01-04 23:25 | Pulmonology Progress Note ---
Assessment/Plan Problems: (1) Symptomatic anemia (2) Bladder hemorrhage (3) Uterine hemorrhage (4) ESRF (end stage renal failure) (5) DM renal manif type II Subjective Allergies: Coded Allergies: ASPIRIN (Verified Allergy, Mild, 08/15/10) PENICILLINS (Verified Allergy, Mild, 08/15/10) LEBRON INHIBITORS (Unverified Allergy, Unknown, 01/01/17) ACETAMINOPHEN (Unverified Allergy, Unknown, 09/18/15) patient stated CODEINE (Unverified Allergy, Unknown, 01/01/17) PENICILLIN (Verified Allergy, Unknown, 09/17/15) Objective Last 24 Hour Vital Signs Date Time Temp Pulse Resp B/P Pulse Ox O2 Delivery O2 Flow Rate FiO2 01/04/17 20:20 129/59 01/04/17 20:19 80 129/59 01/04/17 19:00 99.1 80 18 129/59 98 Room Air 01/04/17 19:00 83 18 Room Air 01/04/17 16:00 98.2 79 18 153/68 98 Room Air 01/04/17 12:00 98.2 79 20 151/70 99 Room Air 01/04/17 10:29 163/71 01/04/17 10:28 163/71 01/04/17 10:28 163/71 01/04/17 10:28 82 163/71 01/04/17 08:00 97.7 82 20 163/71 99 Room Air 01/04/17 07:54 Room Air 01/04/17 07:00 81 18 Room Air 01/04/17 04:30 Room Air 01/04/17 04:13 98.1 95 20 169/73 96 Room Air 01/04/17 00:10 98.4 83 20 165/78 100 Room Air 01/04/17 00:00 85 Intake and Output 01/03/17 01/04/17 19:00 07:00 Intake Total 615 ml Output Total 230 ml Balance 385 ml Intake Oral 560 ml IV Total 55 ml Output Urine Total 230 ml # Voids 100 # Bowel Movements 1 Laboratory Tests 01/04/17 04:15: White Blood Count 10.1, Red Blood Count 3.05L, Hemoglobin 9.2L, Hematocrit 27.5L , Mean Corpuscular Volume 90, Mean Corpuscular Hemoglobin 30.1, Mean Corpuscular Hemoglobin Concent 33.3, Red Cell Distribution Width 17.9H, Platelet Count 213, Mean Platelet Volume 9.3, Neutrophils (%) (Auto) 82.9H, Lymphocytes (%) (Auto) 8.3L, Monocytes (%) (Auto) 7.0, Eosinophils (%) (Auto) 1.0, Basophils (%) (Auto) 0.8 01/04/17 06:00: Sodium Level 140, Potassium Level 3.9, Chloride Level 95L, Carbon Dioxide Level 30, Anion Gap 15, Blood Urea Nitrogen 13, Creatinine 2.7H, Estimat Glomerular Filtration Rate 21.3, Glucose Level 99, Calcium Level 9.1, Total Bilirubin 0.7, Aspartate Amino Transf (AST/SGOT) 18, Alanine Aminotransferase (ALT/SGPT) 7, Alkaline Phosphatase 52, Total Protein 6.9, Albumin 3.0L, Globulin 3.9, Albumin/ Globulin Ratio 0.7L Current Medications Medications (Trade) Dose Ordered Sig/Angelique Route PRN Reason Start Time Stop Time Status Last Admin Dose Admin Al Hydroxide/Mg Hydroxide (Mylanta II) 30 ml Q6H PRN ORAL dyspepsia 01/04/17 10:30 02/03/17 10:29 Albuterol/ Ipratropium (DuoNeb 0.5-3(2.5)mg/3ml) 3 ml Q6H PRN HHN dyspnea 01/04/17 10:30 01/09/17 10:29 Carvedilol (Coreg) 12.5 mg EVERY 12 HOURS ORAL 01/04/17 09:00 02/03/17 08:59 01/04/17 20:19 Dextrose (Dextrose 50%) STAT PRN IV Hypoglycemia 01/04/17 22:30 02/03/17 22:29 Epoetin Tristan (Procrit (for ESRD on dialysis)) 10,000 units MON-WED-WED SUBQ 01/04/17 21:00 02/03/17 20:59 01/04/17 20:21 Hydralazine HCl (Apresoline) 75 mg Q12HR ORAL 01/04/17 09:00 02/03/17 08:59 01/04/17 20:20 Insulin Aspart (NovoLOG) BEFORE MEALS AND HS SUBQ 01/04/17 06:30 02/03/17 06:29 01/04/17 20:21 Irbesartan (Avapro) 300 mg DAILY ORAL 01/04/17 09:00 02/03/17 08:59 01/04/17 10:29 Isosorbide Mononitrate (Imdur) 30 mg DAILY ORAL 01/04/17 09:00 02/03/17 08:59 01/04/17 10:28 Ondansetron HCl (Zofran) 4 mg Q6H PRN IVP Nausea & Vomiting 01/04/17 10:30 02/03/17 10:29 Polyethylene Glycol (Miralax) 17 gm HSPRN PRN ORAL Constipation 01/04/17 22:30 02/03/17 22:29 Pravastatin Sodium (Pravachol) 40 mg BEDTIME ORAL 01/04/17 21:00 02/03/17 20:59 01/04/17 20:19 Tramadol HCl (Ultram) 50 mg Q6H PRN ORAL For Pain 01/04/17 07:45 01/11/17 07:44 Zolpidem Tartrate (Ambien) 5 mg HSPRN PRN ORAL Insomnia 01/04/17 22:30 02/03/17 22:29 ELIA MARADIAGA Jan 04, 2017 23:25
[2017-01-05] VITALS (15 sets, daily range): BP systolic 138–200; BP diastolic 66–96
[2017-01-05] MEDS: NovoLOG Insulin Flexpen SUBQ SCH ×4 (06:21→21:19)
[2017-01-05] MEDS: D5 1/2NS 1,000 ML IV SCH (06:30)
[2017-01-05] MEDS ORDERED: LR 1000ml 1,000 ML IVLG SCH (07:19)
[2017-01-05] MEDS ORDERED: LORazepam Inj 2mg/ml 1ml IV PRN (07:30)
[2017-01-05] MEDS ORDERED: DiphenhydrAMINE 50mg/ml Inj IVP PRN (07:30)
[2017-01-05] MEDS ORDERED: Atropine Inj 1mg/10ml Syr IV PRN (07:30)
[2017-01-05] MEDS ORDERED: Labetalol 5mg/ml 20ml vial IV PRN (07:30)
[2017-01-05] MEDS ORDERED: Metoclopramide 10mg/2ml Inj IVP PRN (07:30)
[2017-01-05] MEDS ORDERED: Meperidine 25mg/ml Inj IV PRN (07:30)
[2017-01-05] MEDS ORDERED: Midazolam 2mg/2ml Inj IVP PRN (07:30)
[2017-01-05] MEDS ORDERED: NS Irrig 4000ml IRRIG ONE ×2 (08:00→08:15)
[2017-01-05] MEDS ORDERED: Sterile Water Irrig 1000ml IRRIG ONE (08:00)
[2017-01-05] MEDS ORDERED: Lidocaine 1% Plain 30 ml INJ ONE (08:00)
[2017-01-05] MEDS ORDERED: Propofol 10mg/ml 100ml btl IV ONE (08:00)
[2017-01-05] MEDS ORDERED: fentaNYL 100 mcg/2 mL IV ONE (08:00)
[2017-01-05] MEDS ORDERED: NS Irrig 1000ml ONE (08:00)
[2017-01-05] MEDS ORDERED: Midazolam 2mg/2ml Inj ONE (08:00)
--- NOTE | 2017-01-05 08:08 | Pre-Procedure Note/Attestation ---
Pre-Procedure Note/Attestation Complete Prior to Procedure Planned Procedure: not applicable Procedure Narrative: cystoscopy, clot evacuation, possible TURBT Indications for Procedure Pre-Operative Diagnosis: hematuria Attestation I attest that I discussed the nature of the procedure; its benefits; risks and complications; and alternatives (and the risks and benefits of such alternatives ), prior to the procedure, with the patient (or the patient's legal underwriting service representative). I attest that, if there was a reasonable possibility of needing a blood transfusion, the patient (or the patient's legal underwriting service representative) was given the [facility] standardized written summary, pursuant to the Rony Odell Blood Safety Act ([place] Health and Safety Code # 1645, as amended). I attest that I re-evaluated the patient just prior to the surgery and that there has been no change in the patient's H&P, except as documented below: Cheo Dumont M.D. Jan 05, 2017 08:07
[2017-01-05] MEDS ORDERED: NS Irrig 2000ml IRRIG ONE (08:15)
--- NOTE | 2017-01-05 08:46 | Immediate Post-Op Evaluation ---
Immediate Post-Op Evalulation Immediate Post-Op Evalulation Procedure: Cystoscopy, Fulgaration Bladder Date of Evaluation: Jan 05, 2017 Time of Evaluation: 09:44 IV Fluids: 300 NS Blood Products: 0 Estimated Blood Loss: 10 Urinary Output: 0 Blood Pressure Systolic: 158 Blood Pressure Diastolic: 77 Pulse Rate: 66 Respiratory Rate: 16 O2 Sat by Pulse Oximetry: 100 Temperature (Fahrenheit): 97 Pain Score (1-10): 2 Nausea: No Vomiting: No Complications 0 Patient Status: awake, reacts, patent, extubated, none Hydration Status: adequate Dru Gram Ancef IV Given Within 1 Hr of Incision: Yes Time Given: 08:16 Ramon Carter MD Jan 05, 2017 08:46
[2017-01-05] MEDS: Imdur 30mg tab ORAL SCH (09:00)
[2017-01-05] MEDS: HydrALAZINE 25mg tab ORAL SCH ×2 (09:00→21:30)
[2017-01-05] MEDS: Irbesartan 150mg tablet ORAL SCH (09:00)
[2017-01-05] MEDS: Carvedilol 12.5mg tab ORAL SCH ×2 (09:00→21:00)
[2017-01-05] MEDS: fentaNYL 100 mcg/2 mL IV PRN ×4 (09:41→10:25)
[2017-01-05] MEDS ORDERED: [UNRECOGNIZED DRUG - OTHER] RECTAL PRN (10:00)
--- NOTE | 2017-01-05 10:06 | Brief Operative Note ---
Immediate Post Operative Note Operative Note Pre-op Diagnosis: hematuria Procedure: cystoscopy, clot evacuation, bladder biopsy and fulguration Post-op Diagnosis: same as pre-op Findings: consistent w/pre-op dx studies Surgeon: hedy Anesthesiologist: jovanni Anesthesia: general Specimen: yes Complications: none Condition: stable Estimated Blood Loss: minimal Drains: other - 22 occitan calderón Implant(s) used?: Yes Cheo Dumont M.D. Jan 05, 2017 10:06
--- NOTE | 2017-01-05 10:18 | Urology Progress Note ---
Assessment/Plan Status: stable Assessment/Plan Tolerated cystoscopy with biopsy and fulguration well today. No large tumor noted. Seems likely more of a case of pyocystitis due to ESRD and dialysis. Bladder wall was overly reactive and oozy, likely due to plavix. Will monitor closely on continuous bladder irrigation for 24 hours. Urine quality should improve. 1. continuous bladder irrigation x 24 hours 2. re-eval urine and H/H tomorrow Subjective Date patient seen: Jan 05, 2017 Time patient seen: 10:16 ROS Limited/Unobtainable: Yes Allergies: Coded Allergies: ASPIRIN (Verified Allergy, Mild, 08/15/10) PENICILLINS (Verified Allergy, Mild, 08/15/10) LEBRON INHIBITORS (Unverified Allergy, Unknown, 01/01/17) ACETAMINOPHEN (Unverified Allergy, Unknown, 09/18/15) patient stated CODEINE (Unverified Allergy, Unknown, 01/01/17) PENICILLIN (Verified Allergy, Unknown, 09/17/15) Subjective no change, tolerated cystoscopy well today Objective Last 24 Hour Vital Signs Date Time Temp Pulse Resp B/P Pulse Ox O2 Delivery O2 Flow Rate FiO2 01/05/17 09:45 66 20 187/85 100 Room Air 01/05/17 09:41 66 20 183/83 100 Room Air 01/05/17 09:38 52 20 158/79 100 Room Air 01/05/17 09:34 66 16 100 01/05/17 09:33 97.0 52 20 158/77 100 Room Air 01/05/17 07:50 78 18 Room Air 01/05/17 04:00 98.2 81 18 144/66 99 Room Air 01/05/17 00:00 97.3 81 18 142/68 100 Room Air 01/04/17 20:20 129/59 01/04/17 20:19 80 129/59 01/04/17 19:00 99.1 80 18 129/59 98 Room Air 01/04/17 19:00 83 18 Room Air 01/04/17 16:00 98.2 79 18 153/68 98 Room Air 01/04/17 12:00 98.2 79 20 151/70 99 Room Air 01/04/17 10:29 163/71 01/04/17 10:28 163/71 01/04/17 10:28 163/71 01/04/17 10:28 82 163/71 Intake and Output 01/04/17 01/05/17 19:00 07:00 Output Total 2300 ml 70 ml Balance -2300 ml -70 ml Output Urine Total 70 ml Hemodialysis UF 2300 ml Height (Feet): 4 Height (Inches): 5.00 Weight (Pounds): 99 General Appearance: lethargic, mild distress Cheo Dumont M.D. Jan 05, 2017 10:18
[2017-01-05 12:19] LABS: BASOPHILS % (AUTO) 0.9 % (0.0-2.0); CALCIUM 8.8 mg/dL (8.6-10.2); CREATININE 3.9 mg/dL (0.5-0.9); EOSINOPHILS % (AUTO) 1.8 % (0.0-3.0); GLOMERULAR FILTRATION RATE 13.9 mL/min (>60); LYMPHOCYTES % (AUTO) 8.4 % (20.0-45.0); MEAN CORPUSCULAR HEMOGLOBIN 29.5 PG (27.0-31.0); MEAN CORPUSCULAR HGB CONC 31.3 G/DL (32.0-36.0); MEAN CORPUSCULAR VOLUME 94 FL (80-99); MEAN PLATELET VOLUME 8.6 FL (6.5-10.1); MONOCYTES % (AUTO) 6.5 % (1.0-10.0); NEUTROPHILS % (AUTO) 82.3 % (45.0-75.0); PLATELET COUNT 168 K/UL (150-450); POTASSIUM 3.9 mEQ/L (3.4-4.9); RED BLOOD COUNT 3.29 M/UL (4.20-5.40); RED CELL DISTRIBUTION WIDTH 19.7 % (11.6-14.8); WHITE BLOOD COUNT 8.6 K/UL (4.8-10.8)
[2017-01-05 13:51] LABS: OTHERS PATHOLOGIST COMMENT
[2017-01-05 14:19] LABS: PTH INTACT 106 pg/mL (15-65)
[2017-01-05] MEDS: traMADol 50mg tab ORAL PRN (16:34)
--- NOTE | 2017-01-05 17:23 | Internal Med Progress Note ---
Subjective Date of Service: Jan 05, 2017 Physician Name Nahomy Merrill Attending Physician Scotty Wayne MD Current Medications Medications (Trade) Dose Ordered Sig/Angelique Route PRN Reason Start Time Stop Time Status Last Admin Dose Admin Al Hydroxide/Mg Hydroxide (Mylanta II) 30 ml Q6H PRN ORAL dyspepsia 01/04/17 10:30 02/03/17 10:29 Albuterol/ Ipratropium (DuoNeb 0.5-3(2.5)mg/3ml) 3 ml Q6H PRN HHN dyspnea 01/04/17 10:30 01/09/17 10:29 Belladonna Alkaloids/Opium (B & O (15-A)) 30 mg TWICE A DAY PRN RECTAL spasm 01/05/17 10:00 01/12/17 09:59 01/05/17 12:45 Carvedilol (Coreg) 12.5 mg EVERY 12 HOURS ORAL 01/04/17 09:00 02/03/17 08:59 01/04/17 20:19 Dextrose (Dextrose 50%) STAT PRN IV Hypoglycemia 01/04/17 22:30 02/03/17 22:29 Dextrose/Sodium Chloride (D5 0.45% NS) 1,000 ml @ 40 mls/hr Q24H IV 01/05/17 06:30 02/04/17 06:29 01/05/17 06:30 Epoetin Tristan (Procrit (for ESRD on dialysis)) 10,000 units WED-WED-WED SUBQ 01/04/17 21:00 02/03/17 20:59 01/04/17 20:21 Hydralazine HCl (Apresoline) 75 mg Q12HR ORAL 01/04/17 09:00 02/03/17 08:59 01/04/17 20:20 Insulin Aspart (NovoLOG) BEFORE MEALS AND HS SUBQ 01/04/17 06:30 02/03/17 06:29 01/05/17 16:40 Irbesartan (Avapro) 300 mg DAILY ORAL 01/04/17 09:00 02/03/17 08:59 01/04/17 10:29 Isosorbide Mononitrate (Imdur) 30 mg DAILY ORAL 01/04/17 09:00 02/03/17 08:59 01/04/17 10:28 Ondansetron HCl (Zofran) 4 mg Q6H PRN IVP Nausea & Vomiting 01/04/17 10:30 02/03/17 10:29 Polyethylene Glycol (Miralax) 17 gm HSPRN PRN ORAL Constipation 01/04/17 22:30 02/03/17 22:29 Pravastatin Sodium (Pravachol) 40 mg BEDTIME ORAL 01/04/17 21:00 02/03/17 20:59 01/04/17 20:19 Tramadol HCl (Ultram) 50 mg Q6H PRN ORAL For Pain 01/04/17 07:45 01/11/17 07:44 01/05/17 16:34 Zolpidem Tartrate 5 mg 5 mg HSPRN PRN ORAL Insomnia 01/04/17 22:30 02/03/17 22:29 Allergies: Coded Allergies: ASPIRIN (Verified Allergy, Mild, 08/15/10) PENICILLINS (Verified Allergy, Mild, 08/15/10) LEBRON INHIBITORS (Unverified Allergy, Unknown, 01/01/17) ACETAMINOPHEN (Unverified Allergy, Unknown, 09/18/15) patient stated CODEINE (Unverified Allergy, Unknown, 01/01/17) PENICILLIN (Verified Allergy, Unknown, 09/17/15) ROS Limited/Unobtainable: No Constitutional: Reports: no symptoms HEENT: Reports: no symptoms Cardiovascular: Reports: no symptoms Respiratory: Reports: no symptoms Gastrointestinal/Abdominal: Reports: no symptoms Genitourinary: Reports: hematuria, other Neurologic/Psychiatric: Reports: no symptoms Subjective 66 YO F admitted with hematuria and vaginal bleeding. Pelvic exam under anesthesia cancelled. S/P cystoscopy 01/05/17. Cover for Int Jl-Dr Wayne. Objective Last Vital Signs Date Time Temp Pulse Resp B/P Pulse Ox O2 Delivery O2 Flow Rate FiO2 01/05/17 16:00 96.9 75 20 145/73 99 Room Air 01/02/17 10:04 21 Laboratory Tests Test 01/05/17 11:50 White Blood Count 8.6 K/UL (4.8-10.8) Red Blood Count 3.29 M/UL (4.20-5.40) L Hemoglobin 9.7 G/DL (12.0-16.0) L Hematocrit 31.0 % (37.0-47.0) L Mean Corpuscular Volume 94 FL (80-99) Mean Corpuscular Hemoglobin 29.5 PG (27.0-31.0) Mean Corpuscular Hemoglobin Concent 31.3 G/DL (32.0-36.0) L Red Cell Distribution Width 19.7 % (11.6-14.8) H Platelet Count 168 K/UL (150-450) Mean Platelet Volume 8.6 FL (6.5-10.1) Neutrophils (%) (Auto) 82.3 % (45.0-75.0) H Lymphocytes (%) (Auto) 8.4 % (20.0-45.0) L Monocytes (%) (Auto) 6.5 % (1.0-10.0) Eosinophils (%) (Auto) 1.8 % (0.0-3.0) Basophils (%) (Auto) 0.9 % (0.0-2.0) Sodium Level 139 mEQ/L (135-145) Potassium Level 3.9 mEQ/L (3.4-4.9) Chloride Level 96 mEQ/L (98-107) L Carbon Dioxide Level 28 mEQ/L (20-30) Anion Gap 15 (5-15) Blood Urea Nitrogen 17 mg/dL (7-23) Creatinine 3.9 mg/dL (0.5-0.9) H Estimat Glomerular Filtration Rate 13.9 mL/min (>60) Glucose Level 164 mg/dL (74-106) H Calcium Level 8.8 mg/dL (8.6-10.2) Intake and Output 01/04/17 01/05/17 19:00 07:00 Output Total 2300 ml 70 ml Balance -2300 ml -70 ml Output Urine Total 70 ml Hemodialysis UF 2300 ml Objective General Appearance: moderate distress, cachetic, thin EENT: PERRL/EOMI, normal ENT inspection, TMs normal Neck: non-tender, normal alignment, supple Cardiovascular: normal peripheral pulses, normal rate, regular rhythm, no gallop/murmur, no JVD Respiratory/Chest: chest wall non-tender, lungs clear, normal breath sounds, no respiratory distress, no accessory muscle use Abdomen: normal bowel sounds, non tender, soft, no organomegaly, no mass Extremities: other - Bilateral BKA Neurologic: hot box spotter II-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 (2) Dysfunctional uterine bleeding Assessment & Plan: Pelvic exam under anesthesia cancelled-see EXPLOSIVE ORDNANCE DISPOSAL MANAGER note. (3) Severe anemia (4) Hypokalemia Assessment & Plan: S/P replacement. (5) ESRD on hemodialysis Assessment & Plan: See nephrology note. Dialysis today, Wednesday01/04/17 (6) Scleroderma (7) Cerebral vascular disease (8) Expressive aphasia (9) Below knee amputation status (10) Necrosis of finger (11) ESRD (end stage renal disease) (12) HTN (hypertension) Assessment & Plan: Cont avapro and hydralazine. (13) Hematuria Assessment & Plan: S/P cystoscopy 01/05/17-see urology note. Continuous irrigation. Status: progressing NAHOMY MERRILL Jan 05, 2017 17:23
--- NOTE | 2017-01-05 18:19 | Operative Note - Dictated ---
DATE OF OPERATION: 01/05/2017 PRIMARY SURGEON: Cheo Dumont M.D. PREOPERATIVE DIAGNOSIS: Gross hematuria. POSTOPERATIVE DIAGNOSIS: Gross hematuria. PROCEDURE PERFORMED: Cystoscopy, clot evacuation, bladder biopsy, and fulguration. ANESTHESIA: General. EBL: Less than 50 mL. COMPLICATIONS: None. DRAINS: A 22-Mauritanian three-way Andrew catheter. SPECIMENS: Bladder biopsy x3. PREOP HISTORY: The patient is a pleasant 66-year-old female with a history of gross hematuria, unclear etiology. Scan showed clot versus bladder mass. The patient is a poor historian. She also has end-stage renal disease and history of stroke, on preventative Plavix. The patient's hematuria did not improve after 48 hours of manual irrigation of clot and continuous bladder irrigation. Given the concerning CT scan findings, the patient was recommended to go to the operating room for bladder biopsy and cystoscopy for better evaluation of the bladder. The patient's conservator has agreed. They were made aware of risks and benefits of the procedure. Risks including, but not limited to bleeding, infection, bladder injury, urethral injury, and urine leak. The patient's conservator understood the risks, signed the consent, and was taken to the operating room. OPERATIVE PROCEDURE: The patient was brought to the operating room, where general anesthesia was achieved easily. She was placed in the dorsal lithotomy position with all pressure points padded. Her BKA amputations were carefully placed in Reginald stirrups in a mild modified lithotomy position. A 22-Mauritanian continuous flow resectoscope sheath with 30-degree lens was placed. Bladder was entered. There was some clot that was evacuated out. There was some dried clot up against what seemed to be bladder irritation against the posterior wall. There was no significant amount of clot consistent with a CT scan on the weekend, so likely was evacuated with manual irrigation. There was reactive tissue all along the posterior wall of the bladder, unsure if it was tumor versus Andrew catheter reaction. So, three biopsies were taken of the posterior bladder wall. There was a general amount of ooziness from all the bladder tissue. The more heavily exsanguinating areas were fulgurated with the resecting loop to achieve hemostasis. On more extensive irrigation and evaluation of bladder, that seemed to be a possible diverticulum versus possible connection or fistula, but it was unclear that it was going anywhere. Cystoscopy did not reveal anything. Bimanual exam did not show that the posterior area was involved with it. The vagina seems more likely to be an external compression from the fibroid uterus or diverticulum. After adequate biopsies were done and the best possible hemostasis was achieved, the scope was removed and a 22-Mauritanian three-way Andrew catheter was placed and attached to continuous irrigation. Irrigation was running light pink at the end of the case. The patient tolerated the procedure well and was woken up and taken to recovery room in stable fashion. All the instrument counts were correct at the end of the case. I was present for the entire case. PLAN: 1. The patient will be observed for another 24 hours with light irrigation of the catheter. 2. We will monitor closely. 3. It seems likely this was a reaction to infection, likely pyocystis. Given the patient's end-stage renal disease, she likely does not void very often. Buildup of debris and tissue made her more likely to get an infection, and the anticoagulation and Plavix led to hematuria and clot retention. Cheo Dumont DR: ERICK JOB#: [id number] CC:
--- NOTE | 2017-01-05 19:11 | Nephrology Progress Note ---
Assessment/Plan Assessment 1. Severe hypokalemia. resolved 2. End-stage renal disease. 3. Anemia of chronic kidney disease. 4. Hematuria. 5. Questionable bladder CA when there was urinary tract infection. 6. Hypertension, which is uncontrolled at this time. 7.malnutrition Plan dialysis in am continue epogen check H&H nutritional support prealbumin of no need for phosphate binder Subjective ROS Limited/Unobtainable: Yes Constitutional: Reports: no symptoms HEENT: Reports: no symptoms Neurologic/Psychiatric: Reports: no symptoms Subjective awake confused treatment this morning Objective Objective Last 24 Hour Vital Signs Date Time Temp Pulse Resp B/P Pulse Ox O2 Delivery O2 Flow Rate FiO2 01/05/17 16:00 96.9 75 20 145/73 99 Room Air 01/05/17 11:30 97.2 71 16 168/79 100 Room Air 01/05/17 10:53 72 20 187/96 100 Room Air 01/05/17 10:48 71 208/97 01/05/17 10:26 97.0 01/05/17 10:25 72 20 192/95 100 Room Air 01/05/17 10:07 78 20 200/93 100 Room Air 01/05/17 09:56 75 20 187/85 100 Room Air 01/05/17 09:45 66 20 187/85 100 Room Air 01/05/17 09:41 66 20 183/83 100 Room Air 01/05/17 09:38 52 20 158/79 100 Room Air 01/05/17 09:34 66 16 100 01/05/17 09:33 97.0 52 20 158/77 100 Room Air 01/05/17 07:50 78 18 Room Air 01/05/17 04:00 98.2 81 18 144/66 99 Room Air 01/05/17 00:00 97.3 81 18 142/68 100 Room Air 01/04/17 20:20 129/59 01/04/17 20:19 80 129/59 Intake and Output 01/04/17 01/05/17 19:00 07:00 Output Total 2300 ml 70 ml Balance -2300 ml -70 ml Output Urine Total 70 ml Hemodialysis UF 2300 ml Laboratory Tests 01/05/17 11:50: White Blood Count 8.6, Red Blood Count 3.29L, Hemoglobin 9.7L, Hematocrit 31.0L , Mean Corpuscular Volume 94, Mean Corpuscular Hemoglobin 29.5, Mean Corpuscular Hemoglobin Concent 31.3L, Red Cell Distribution Width 19.7H, Platelet Count 168, Mean Platelet Volume 8.6, Neutrophils (%) (Auto) 82.3H, Lymphocytes (%) (Auto) 8.4L, Monocytes (%) (Auto) 6.5, Eosinophils (%) (Auto) 1.8, Basophils (%) (Auto) 0.9, Sodium Level 139, Potassium Level 3.9, Chloride Level 96L, Carbon Dioxide Level 28, Anion Gap 15, Blood Urea Nitrogen 17, Creatinine 3.9H, Estimat Glomerular Filtration Rate 13.9, Glucose Level 164H, Calcium Level 8.8 Height (Feet): 4 Height (Inches): 5.00 Weight (Pounds): 99 Objective HEAD AND NECK: No JVP. No LAD. No thyromegaly. Extraocular movement intact. Pupils are reactive to light and accommodation. LUNGS: Decreased breathing sounds. CARDIAC: Regular rate and rhythm. S1-S2. No murmur. No rub. ABDOMEN: Soft and nontender. EXTREMITIES: She has bilateral lower extremity amputation and has a Andrew catheter. It has blood in it. KALINA WELLS Jan 05, 2017 19:11
--- NOTE | 2017-01-05 22:50 | Pulmonology Progress Note ---
Assessment/Plan Problems: (1) Symptomatic anemia (2) Bladder hemorrhage (3) Uterine hemorrhage (4) ESRF (end stage renal failure) (5) DM renal manif type II Subjective Allergies: Coded Allergies: ASPIRIN (Verified Allergy, Mild, 08/15/10) PENICILLINS (Verified Allergy, Mild, 08/15/10) LEBRON INHIBITORS (Unverified Allergy, Unknown, 01/01/17) ACETAMINOPHEN (Unverified Allergy, Unknown, 09/18/15) patient stated CODEINE (Unverified Allergy, Unknown, 01/01/17) PENICILLIN (Verified Allergy, Unknown, 09/17/15) Objective Last 24 Hour Vital Signs Date Time Temp Pulse Resp B/P Pulse Ox O2 Delivery O2 Flow Rate FiO2 01/05/17 22:06 97.0 77 18 138/70 96 Room Air 01/05/17 21:30 99/49 01/05/17 21:22 71 18 Room Air 01/05/17 21:00 72 99/49 01/05/17 19:00 97.0 77 18 138/70 96 Room Air 01/05/17 16:00 96.9 75 20 145/73 99 Room Air 01/05/17 11:30 97.2 71 16 168/79 100 Room Air 01/05/17 10:53 72 20 187/96 100 Room Air 01/05/17 10:48 71 208/97 01/05/17 10:26 97.0 01/05/17 10:25 72 20 192/95 100 Room Air 01/05/17 10:07 78 20 200/93 100 Room Air 01/05/17 09:56 75 20 187/85 100 Room Air 01/05/17 09:45 66 20 187/85 100 Room Air 01/05/17 09:41 66 20 183/83 100 Room Air 01/05/17 09:38 52 20 158/79 100 Room Air 01/05/17 09:34 66 16 100 01/05/17 09:33 97.0 52 20 158/77 100 Room Air 01/05/17 07:50 78 18 Room Air 01/05/17 04:00 98.2 81 18 144/66 99 Room Air 01/05/17 00:00 97.3 81 18 142/68 100 Room Air Intake and Output 01/04/17 01/05/17 19:00 07:00 Output Total 2300 ml 70 ml Balance -2300 ml -70 ml Output Urine Total 70 ml Hemodialysis UF 2300 ml Laboratory Tests 01/05/17 11:50: White Blood Count 8.6, Red Blood Count 3.29L, Hemoglobin 9.7L, Hematocrit 31.0L , Mean Corpuscular Volume 94, Mean Corpuscular Hemoglobin 29.5, Mean Corpuscular Hemoglobin Concent 31.3L, Red Cell Distribution Width 19.7H, Platelet Count 168, Mean Platelet Volume 8.6, Neutrophils (%) (Auto) 82.3H, Lymphocytes (%) (Auto) 8.4L, Monocytes (%) (Auto) 6.5, Eosinophils (%) (Auto) 1.8, Basophils (%) (Auto) 0.9, Sodium Level 139, Potassium Level 3.9, Chloride Level 96L, Carbon Dioxide Level 28, Anion Gap 15, Blood Urea Nitrogen 17, Creatinine 3.9H, Estimat Glomerular Filtration Rate 13.9, Glucose Level 164H, Calcium Level 8.8 Current Medications Medications (Trade) Dose Ordered Sig/Angelique Route PRN Reason Start Time Stop Time Status Last Admin Dose Admin Al Hydroxide/Mg Hydroxide (Mylanta II) 30 ml Q6H PRN ORAL dyspepsia 01/04/17 10:30 02/03/17 10:29 Albuterol/ Ipratropium (DuoNeb 0.5-3(2.5)mg/3ml) 3 ml Q6H PRN HHN dyspnea 01/04/17 10:30 01/09/17 10:29 Belladonna Alkaloids/Opium (B & O (15-A)) 30 mg TWICE A DAY PRN RECTAL spasm 01/05/17 10:00 01/12/17 09:59 01/05/17 12:45 Carvedilol (Coreg) 12.5 mg EVERY 12 HOURS ORAL 01/04/17 09:00 02/03/17 08:59 01/04/17 20:19 Dextrose (Dextrose 50%) STAT PRN IV Hypoglycemia 01/04/17 22:30 02/03/17 22:29 Dextrose/Sodium Chloride (D5 0.45% NS) 1,000 ml @ 40 mls/hr Q24H IV 01/05/17 06:30 02/04/17 06:29 01/05/17 06:30 Epoetin Tristan (Procrit (for ESRD on dialysis)) 10,000 units WED-WED-WED SUBQ 01/04/17 21:00 02/03/17 20:59 01/04/17 20:21 Hydralazine HCl (Apresoline) 75 mg Q12HR ORAL 01/04/17 09:00 02/03/17 08:59 01/04/17 20:20 Insulin Aspart (NovoLOG) BEFORE MEALS AND HS SUBQ 01/04/17 06:30 02/03/17 06:29 01/05/17 21:19 Irbesartan (Avapro) 300 mg DAILY ORAL 01/04/17 09:00 02/03/17 08:59 01/04/17 10:29 Isosorbide Mononitrate (Imdur) 30 mg DAILY ORAL 01/04/17 09:00 02/03/17 08:59 01/04/17 10:28 Ondansetron HCl (Zofran) 4 mg Q6H PRN IVP Nausea & Vomiting 01/04/17 10:30 02/03/17 10:29 Polyethylene Glycol (Miralax) 17 gm HSPRN PRN ORAL Constipation 01/04/17 22:30 02/03/17 22:29 Pravastatin Sodium (Pravachol) 40 mg BEDTIME ORAL 01/04/17 21:00 02/03/17 20:59 01/05/17 21:18 Tramadol HCl (Ultram) 50 mg Q6H PRN ORAL For Pain 01/04/17 07:45 01/11/17 07:44 01/05/17 16:34 Zolpidem Tartrate 5 mg 5 mg HSPRN PRN ORAL Insomnia 01/04/17 22:30 02/03/17 22:29 ELIA MARADIAGA Jan 05, 2017 22:50
[2017-01-06] VITALS: BP 101/50
[2017-01-06 04:00] VITALS: BP 115/58
[2017-01-06] MEDS: traMADol 50mg tab ORAL PRN ×2 (04:28→16:42)
[2017-01-06] MEDS: NovoLOG Insulin Flexpen SUBQ SCH ×4 (06:17→22:03)
[2017-01-06] MEDS: D5 1/2NS 1,000 ML IV SCH (06:30)
[2017-01-06 07:19] LABS: ALBUMIN/GLOBULIN RATIO 0.6 (1.0-2.7); CALCIUM 8.8 mg/dL (8.6-10.2); CREATININE 4.8 mg/dL (0.5-0.9); POTASSIUM 4.2 mEQ/L (3.4-4.9); TOTAL PROTEIN 6.6 g/dL (6.6-8.7)
[2017-01-06 07:28] LABS: BASOPHILS % (AUTO) 1.1 % (0.0-2.0); EOSINOPHILS % (AUTO) 2.7 % (0.0-3.0); LYMPHOCYTES % (AUTO) 12.5 % (20.0-45.0); MEAN CORPUSCULAR HEMOGLOBIN 29.6 PG (27.0-31.0); MEAN CORPUSCULAR HGB CONC 31.3 G/DL (32.0-36.0); MEAN CORPUSCULAR VOLUME 94 FL (80-99); MONOCYTES % (AUTO) 7.9 % (1.0-10.0); NEUTROPHILS % (AUTO) 75.7 % (45.0-75.0); PLATELET COUNT 167 K/UL (150-450); RED BLOOD COUNT 3.04 M/UL (4.20-5.40); RED CELL DISTRIBUTION WIDTH 19.4 % (11.6-14.8); WHITE BLOOD COUNT 9.6 K/UL (4.8-10.8)
[2017-01-06 08:09] VITALS: BP 142/63
[2017-01-06] MEDS: HydrALAZINE 25mg tab ORAL SCH ×2 (08:59→21:57)
[2017-01-06] MEDS: Irbesartan 150mg tablet ORAL SCH (08:59)
[2017-01-06] MEDS: Imdur 30mg tab ORAL SCH (08:59)
[2017-01-06] MEDS: Carvedilol 12.5mg tab ORAL SCH ×2 (08:59→21:57)
--- NOTE | 2017-01-06 09:15 | 48 Hour Post Anesthesia Eval ---
Post Anesthesia Evaluation Procedure: Cystoscopy, Fulgaration Bladder Date of Evaluation: Jan 06, 2017 Time of Evaluation: 07:01 Blood Pressure Systolic: 142 0: 63 Pulse Rate: 84 Respiratory Rate: 21 Temperature (Fahrenheit): 97.7 O2 Sat by Pulse Oximetry: 97 Airway: patent Nausea: No Vomiting: No Pain Intensity: 2 Hydration Status: adequate Cardiopulmonary Status: Stable Mental Status/LOC: patient returned to baseline Follow-up Care/Observations: 0 Post-Anesthesia Complications: 0 Follow-up care needed: N/A Ramon Carter MD Jan 06, 2017 09:15
--- NOTE | 2017-01-06 10:46 | Internal Med Progress Note ---
Subjective Date of Service: Jan 06, 2017 Physician Name Nahomy Merrill Attending Physician Scotty aWyne MD Current Medications Medications (Trade) Dose Ordered Sig/Angelique Route PRN Reason Start Time Stop Time Status Last Admin Dose Admin Al Hydroxide/Mg Hydroxide (Mylanta II) 30 ml Q6H PRN ORAL dyspepsia 01/04/17 10:30 02/03/17 10:29 Albuterol/ Ipratropium (DuoNeb 0.5-3(2.5)mg/3ml) 3 ml Q6H PRN HHN dyspnea 01/04/17 10:30 01/09/17 10:29 Belladonna Alkaloids/Opium (B & O (15-A)) 30 mg TWICE A DAY PRN RECTAL spasm 01/05/17 10:00 01/12/17 09:59 01/05/17 12:45 Carvedilol (Coreg) 12.5 mg EVERY 12 HOURS ORAL 01/04/17 09:00 02/03/17 08:59 01/04/17 20:19 Dextrose (Dextrose 50%) STAT PRN IV Hypoglycemia 01/04/17 22:30 02/03/17 22:29 Epoetin Tristan (Procrit (for ESRD on dialysis)) 10,000 units WED-WED-WED SUBQ 01/04/17 21:00 02/03/17 20:59 01/04/17 20:21 Hydralazine HCl (Apresoline) 75 mg Q12HR ORAL 01/04/17 09:00 02/03/17 08:59 01/04/17 20:20 Insulin Aspart (NovoLOG) BEFORE MEALS AND HS SUBQ 01/04/17 06:30 02/03/17 06:29 01/06/17 06:17 Irbesartan (Avapro) 300 mg DAILY ORAL 01/04/17 09:00 02/03/17 08:59 01/04/17 10:29 Isosorbide Mononitrate (Imdur) 30 mg DAILY ORAL 01/04/17 09:00 02/03/17 08:59 01/04/17 10:28 Ondansetron HCl (Zofran) 4 mg Q6H PRN IVP Nausea & Vomiting 01/04/17 10:30 02/03/17 10:29 Polyethylene Glycol (Miralax) 17 gm HSPRN PRN ORAL Constipation 01/04/17 22:30 02/03/17 22:29 Pravastatin Sodium (Pravachol) 40 mg BEDTIME ORAL 01/04/17 21:00 02/03/17 20:59 01/05/17 21:18 Tramadol HCl (Ultram) 50 mg Q6H PRN ORAL For Pain 01/04/17 07:45 01/11/17 07:44 01/06/17 04:28 Zolpidem Tartrate (Ambien) 5 mg HSPRN PRN ORAL Insomnia 01/04/17 22:30 02/03/17 22:29 Allergies: Coded Allergies: ASPIRIN (Verified Allergy, Mild, 08/15/10) PENICILLINS (Verified Allergy, Mild, 08/15/10) LEBRON INHIBITORS (Unverified Allergy, Unknown, 01/01/17) ACETAMINOPHEN (Unverified Allergy, Unknown, 09/18/15) patient stated CODEINE (Unverified Allergy, Unknown, 01/01/17) PENICILLIN (Verified Allergy, Unknown, 09/17/15) ROS Limited/Unobtainable: No Constitutional: Reports: no symptoms HEENT: Reports: no symptoms Cardiovascular: Reports: no symptoms Respiratory: Reports: no symptoms Gastrointestinal/Abdominal: Reports: no symptoms Genitourinary: Reports: hematuria Neurologic/Psychiatric: Reports: no symptoms Subjective 66 YO F admitted with hematuria. S/P cystoscopy 01/05/17. Cover for Int lJ- Dr Wayne. Objective Last Vital Signs Date Time Temp Pulse Resp B/P Pulse Ox O2 Delivery O2 Flow Rate FiO2 01/06/17 09:30 76 18 Room Air 01/06/17 09:15 97 01/06/17 08:59 142/63 01/06/17 08:35 21 01/06/17 08:09 97.7 Laboratory Tests Test 01/05/17 11:50 01/06/17 06:00 White Blood Count 8.6 K/UL (4.8-10.8) 9.6 K/UL (4.8-10.8) Red Blood Count 3.29 M/UL (4.20-5.40) L 3.04 M/UL (4.20-5.40) L Hemoglobin 9.7 G/DL (12.0-16.0) L 9.0 G/DL (12.0-16.0) L Hematocrit 31.0 % (37.0-47.0) L 28.7 % (37.0-47.0) L Mean Corpuscular Volume 94 FL (80-99) 94 FL (80-99) Mean Corpuscular Hemoglobin 29.5 PG (27.0-31.0) 29.6 PG (27.0-31.0) Mean Corpuscular Hemoglobin Concent 31.3 G/DL (32.0-36.0) L 31.3 G/DL (32.0-36.0) L Red Cell Distribution Width 19.7 % (11.6-14.8) H 19.4 % (11.6-14.8) H Platelet Count 168 K/UL (150-450) 167 K/UL (150-450) Mean Platelet Volume 8.6 FL (6.5-10.1) 9.0 FL (6.5-10.1) Neutrophils (%) (Auto) 82.3 % (45.0-75.0) H 75.7 % (45.0-75.0) H Lymphocytes (%) (Auto) 8.4 % (20.0-45.0) L 12.5 % (20.0-45.0) L Monocytes (%) (Auto) 6.5 % (1.0-10.0) 7.9 % (1.0-10.0) Eosinophils (%) (Auto) 1.8 % (0.0-3.0) 2.7 % (0.0-3.0) Basophils (%) (Auto) 0.9 % (0.0-2.0) 1.1 % (0.0-2.0) Sodium Level 139 mEQ/L (135-145) 142 mEQ/L (135-145) Potassium Level 3.9 mEQ/L (3.4-4.9) 4.2 mEQ/L (3.4-4.9) Chloride Level 96 mEQ/L (98-107) L 100 mEQ/L (98-107) Carbon Dioxide Level 28 mEQ/L (20-30) 31 mEQ/L (20-30) H Anion Gap 15 (5-15) 11 (5-15) Blood Urea Nitrogen 17 mg/dL (7-23) 23 mg/dL (7-23) Creatinine 3.9 mg/dL (0.5-0.9) H 4.8 mg/dL (0.5-0.9) H Estimat Glomerular Filtration Rate 13.9 mL/min (>60) 11.0 mL/min (>60) Glucose Level 164 mg/dL (74-106) H 164 mg/dL (74-106) H Calcium Level 8.8 mg/dL (8.6-10.2) 8.8 mg/dL (8.6-10.2) Total Bilirubin 0.4 mg/dL (0.0-1.2) Aspartate Amino Transf (AST/SGOT) 13 U/L (5-40) Alanine Aminotransferase (ALT/SGPT) 5 U/L (3-33) Alkaline Phosphatase 51 U/L (35-104) Total Protein 6.6 g/dL (6.6-8.7) Albumin 2.5 g/dL (3.5-5.2) L Globulin 4.1 g/dL Albumin/Globulin Ratio 0.6 (1.0-2.7) L Intake and Output 01/05/17 01/06/17 19:00 07:00 Intake Total 1840 ml 3480 ml Output Total 1260 ml 4150 ml Balance 580 ml -670 ml Intake Oral 120 ml 120 ml IV Total 520 ml 360 ml Other 1200 ml 3000 ml Output Urine Total 4150 ml Estimated Blood Loss 10 ml Other 1250 ml Objective General Appearance: moderate distress, cachetic, thin EENT: PERRL/EOMI, normal ENT inspection, TMs normal Neck: non-tender, normal alignment, supple Cardiovascular: normal peripheral pulses, normal rate, regular rhythm, no gallop/murmur, no JVD Respiratory/Chest: chest wall non-tender, lungs clear, normal breath sounds, no respiratory distress, no accessory muscle use Abdomen: normal bowel sounds, non tender, soft, no organomegaly, no mass Extremities: other - Bilateral BKA 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 (2) Dysfunctional uterine bleeding Assessment & Plan: Pelvic exam under anesthesia cancelled-see DRIVE IN TELLER note. (3) Severe anemia (4) Hypokalemia Assessment & Plan: S/P replacement. (5) ESRD on hemodialysis Assessment & Plan: See nephrology note. Dialysis today, 01/06/17 (6) Scleroderma (7) Cerebral vascular disease (8) Expressive aphasia (9) Below knee amputation status (10) Necrosis of finger (11) ESRD (end stage renal disease) Assessment & Plan: Hemodialysis today 01/06/17. (12) HTN (hypertension) Assessment & Plan: Cont avapro and hydralazine. (13) Hematuria Assessment & Plan: S/P cystoscopy and clot evacuation on 01/05/17-see urology note. Continuous irrigation. Assessment/Plan Discharge planning: SNF. NAHOMY MERRILL Jan 06, 2017 10:45
--- NOTE | 2017-01-06 11:26 | Nephrology Progress Note ---
Assessment/Plan Assessment 1. Severe hypokalemia. resolved 2. End-stage renal disease. 3. Anemia of chronic kidney disease. 4. Hematuria. 5. Questionable bladder CA when there was urinary tract infection. 6. Hypertension, which is uncontrolled at this time. 7.malnutrition Plan dialysis in today continue epogen check H&H nutritional support prealbumin of 7 no need for phosphate binder Subjective Constitutional: Reports: no symptoms HEENT: Reports: no symptoms Genitourinary: Reports: no symptoms Neurologic/Psychiatric: Reports: no symptoms Subjective awake confused Objective Objective Last 24 Hour Vital Signs Date Time Temp Pulse Resp B/P Pulse Ox O2 Delivery O2 Flow Rate FiO2 01/06/17 11:24 Room Air 21 01/06/17 09:30 76 18 Room Air 01/06/17 09:15 84 21 97 01/06/17 08:59 142/63 01/06/17 08:59 142/63 01/06/17 08:59 142/63 01/06/17 08:59 84 142/63 01/06/17 08:35 Room Air 21 01/06/17 08:09 97.7 84 21 142/63 97 Room Air 01/06/17 04:00 97.7 80 18 115/58 99 Room Air 01/06/17 00:00 97.9 75 18 101/50 100 Room Air 01/05/17 22:06 97.0 77 18 138/70 96 Room Air 01/05/17 21:30 99/49 01/05/17 21:22 71 18 Room Air 01/05/17 21:00 72 99/49 01/05/17 19:00 97.0 77 18 138/70 96 Room Air 01/05/17 16:00 96.9 75 20 145/73 99 Room Air 01/05/17 11:30 97.2 71 16 168/79 100 Room Air Intake and Output 01/05/17 01/06/17 19:00 07:00 Intake Total 1840 ml 3480 ml Output Total 1260 ml 4150 ml Balance 580 ml -670 ml Intake Oral 120 ml 120 ml IV Total 520 ml 360 ml Other 1200 ml 3000 ml Output Urine Total 4150 ml Estimated Blood Loss 10 ml Other 1250 ml Laboratory Tests 01/05/17 11:50: White Blood Count 8.6, Red Blood Count 3.29L, Hemoglobin 9.7L, Hematocrit 31.0L , Mean Corpuscular Volume 94, Mean Corpuscular Hemoglobin 29.5, Mean Corpuscular Hemoglobin Concent 31.3L, Red Cell Distribution Width 19.7H, Platelet Count 168, Mean Platelet Volume 8.6, Neutrophils (%) (Auto) 82.3H, Lymphocytes (%) (Auto) 8.4L, Monocytes (%) (Auto) 6.5, Eosinophils (%) (Auto) 1.8, Basophils (%) (Auto) 0.9, Sodium Level 139, Potassium Level 3.9, Chloride Level 96L, Carbon Dioxide Level 28, Anion Gap 15, Blood Urea Nitrogen 17, Creatinine 3.9H, Estimat Glomerular Filtration Rate 13.9, Glucose Level 164H, Calcium Level 8.8 01/06/17 06:00: White Blood Count 9.6, Red Blood Count 3.04L, Hemoglobin 9.0L, Hematocrit 28.7L , Mean Corpuscular Volume 94, Mean Corpuscular Hemoglobin 29.6, Mean Corpuscular Hemoglobin Concent 31.3L, Red Cell Distribution Width 19.4H, Platelet Count 167, Mean Platelet Volume 9.0, Neutrophils (%) (Auto) 75.7H, Lymphocytes (%) (Auto) 12.5L, Monocytes (%) (Auto) 7.9, Eosinophils (%) (Auto) 2.7, Basophils (%) (Auto) 1.1, Sodium Level 142, Potassium Level 4.2, Chloride Level 100, Carbon Dioxide Level 31H, Anion Gap 11, Blood Urea Nitrogen 23, Creatinine 4.8H, Estimat Glomerular Filtration Rate 11.0, Glucose Level 164H, Calcium Level 8.8, Total Bilirubin 0.4, Aspartate Amino Transf (AST/SGOT) 13, Alanine Aminotransferase (ALT/SGPT) 5, Alkaline Phosphatase 51, Total Protein 6.6, Albumin 2.5L, Globulin 4.1, Albumin/Globulin Ratio 0.6L Height (Feet): 4 Height (Inches): 5.00 Weight (Pounds): 99 Objective HEAD AND NECK: No JVP. No LAD. No thyromegaly. Extraocular movement intact. Pupils are reactive to light and accommodation. LUNGS: Decreased breathing sounds. CARDIAC: Regular rate and rhythm. S1-S2. No murmur. No rub. ABDOMEN: Soft and nontender. EXTREMITIES: She has bilateral lower extremity amputation and has a Andrew catheter. It has blood in it. KALINA WELLS Jan 06, 2017 11:26
[2017-01-06 12:15] VITALS: BP 114/60
--- NOTE | 2017-01-06 12:29 | Urology Progress Note ---
Assessment/Plan Status: stable Assessment/Plan Urine quality improved. H/H stable. Likely related to inflammation and anti- coagulation. Awaiting biopsy results 1. stop bladder irrigation 2. keep calderón. 3. if urine light pink and H/H stable, ok for discharge tomorrow. recommend home with calderón for 5 days. Subjective Date patient seen: Jan 06, 2017 Time patient seen: 12:28 ROS Limited/Unobtainable: Yes Constitutional: Denies: chills, diaphoresis, fever, malaise, no symptoms, other , weakness HEENT: Denies: blurred vision, double vision, ear discharge, ear pain, eye pain , mouth pain, mouth swelling, no symptoms, nose congestion, nose pain, other, tearing, throat pain, throat swelling Cardiovascular: Denies: chest pain, edema, irregular heart rate, lightheadedness, no symptoms, other, palpitations, syncope Respiratory: Denies: SOB at rest, SOB with excertion, cough, no symptoms, orthopnea, other, shortness of breath, sputum, stridor, wheezing Gastrointestinal/Abdominal: Denies: abdomen distended, abdominal pain, black stools, blood in stool, constipated, diarrhea, difficulty swallowing, nausea, no symptoms, other, poor appetite, poor fluid intake, rectal bleeding, tarry stools, vomiting Genitourinary: Denies: burning, discharge, flank pain, frequency, hematuria, incontinence, no symptoms, other, pain, urgency Neurologic/Psychiatric: Denies: anxiety, depressed, emotional problems, headache, no symptoms, numbness, other, paresthesia, pre-existing deficit, seizure, tingling, tremors, weakness Endocrine: Denies: excessive sweating, flushing, increased hunger, increased thirst, increased urine, intolerance to cold, intolerance to heat, no symptoms, other, unexplained weight gain, unexplained weight loss Hematologic/Lymphatic: Denies: anemia, easy bleeding, easy bruising, no symptoms, other Allergies: Coded Allergies: ASPIRIN (Verified Allergy, Mild, 08/15/10) PENICILLINS (Verified Allergy, Mild, 08/15/10) LEBRON INHIBITORS (Unverified Allergy, Unknown, 01/01/17) ACETAMINOPHEN (Unverified Allergy, Unknown, 09/18/15) patient stated CODEINE (Unverified Allergy, Unknown, 01/01/17) PENICILLIN (Verified Allergy, Unknown, 09/17/15) Subjective catheter leaking, but comfortable Objective Last 24 Hour Vital Signs Date Time Temp Pulse Resp B/P Pulse Ox O2 Delivery O2 Flow Rate FiO2 01/06/17 11:34 Room Air 21 01/06/17 11:24 Room Air 21 01/06/17 09:30 76 18 Room Air 01/06/17 09:15 84 21 97 01/06/17 08:59 142/63 01/06/17 08:59 142/63 01/06/17 08:59 142/63 01/06/17 08:59 84 142/63 01/06/17 08:35 Room Air 21 01/06/17 08:09 97.7 84 21 142/63 97 Room Air 01/06/17 04:00 97.7 80 18 115/58 99 Room Air 01/06/17 00:00 97.9 75 18 101/50 100 Room Air 01/05/17 22:06 97.0 77 18 138/70 96 Room Air 01/05/17 21:30 99/49 01/05/17 21:22 71 18 Room Air 01/05/17 21:00 72 99/49 01/05/17 19:00 97.0 77 18 138/70 96 Room Air 01/05/17 16:00 96.9 75 20 145/73 99 Room Air Intake and Output 01/05/17 01/06/17 19:00 07:00 Intake Total 1840 ml 3480 ml Output Total 1260 ml 4150 ml Balance 580 ml -670 ml Intake Oral 120 ml 120 ml IV Total 520 ml 360 ml Other 1200 ml 3000 ml Output Urine Total 4150 ml Estimated Blood Loss 10 ml Other 1250 ml Laboratory Tests 01/06/17 06:00: White Blood Count 9.6, Red Blood Count 3.04L, Hemoglobin 9.0L, Hematocrit 28.7L , Mean Corpuscular Volume 94, Mean Corpuscular Hemoglobin 29.6, Mean Corpuscular Hemoglobin Concent 31.3L, Red Cell Distribution Width 19.4H, Platelet Count 167, Mean Platelet Volume 9.0, Neutrophils (%) (Auto) 75.7H, Lymphocytes (%) (Auto) 12.5L, Monocytes (%) (Auto) 7.9, Eosinophils (%) (Auto) 2.7, Basophils (%) (Auto) 1.1, Sodium Level 142, Potassium Level 4.2, Chloride Level 100, Carbon Dioxide Level 31H, Anion Gap 11, Blood Urea Nitrogen 23, Creatinine 4.8H, Estimat Glomerular Filtration Rate 11.0, Glucose Level 164H, Calcium Level 8.8, Total Bilirubin 0.4, Aspartate Amino Transf (AST/SGOT) 13, Alanine Aminotransferase (ALT/SGPT) 5, Alkaline Phosphatase 51, Total Protein 6.6, Albumin 2.5L, Globulin 4.1, Albumin/Globulin Ratio 0.6L Height (Feet): 4 Height (Inches): 5.00 Weight (Pounds): 99 General Appearance: no apparent distress Genitourinary/Rectal: other - calderón with light pink urine, clear Cheo Dumont M.D. Jan 06, 2017 12:29
[2017-01-06 16:00] VITALS: BP 116/49
[2017-01-06 19:00] VITALS: BP 120/54
[2017-01-06] MEDS: Epogen (for ESRD on dialysis) SUBQ SCH (22:05)
--- NOTE | 2017-01-06 22:35 | Pulmonology Progress Note ---
Assessment/Plan Problems: (1) Symptomatic anemia (2) Bladder hemorrhage (3) Uterine hemorrhage (4) ESRF (end stage renal failure) (5) DM renal manif type II Subjective Allergies: Coded Allergies: ASPIRIN (Verified Allergy, Mild, 08/15/10) PENICILLINS (Verified Allergy, Mild, 08/15/10) LEBRON INHIBITORS (Unverified Allergy, Unknown, 01/01/17) ACETAMINOPHEN (Unverified Allergy, Unknown, 09/18/15) patient stated CODEINE (Unverified Allergy, Unknown, 01/01/17) PENICILLIN (Verified Allergy, Unknown, 09/17/15) Objective Last 24 Hour Vital Signs Date Time Temp Pulse Resp B/P Pulse Ox O2 Delivery O2 Flow Rate FiO2 01/06/17 21:57 120/54 01/06/17 21:57 78 120/54 01/06/17 19:25 78 18 Room Air 01/06/17 19:00 98.1 80 18 120/54 97 Room Air 01/06/17 16:00 98.2 83 18 116/49 98 Room Air 01/06/17 12:15 98.0 55 21 114/60 95 Room Air 01/06/17 11:34 Room Air 21 01/06/17 11:24 Room Air 21 01/06/17 09:30 76 18 Room Air 01/06/17 09:15 84 21 97 01/06/17 08:59 142/63 01/06/17 08:59 142/63 01/06/17 08:59 142/63 01/06/17 08:59 84 142/63 01/06/17 08:35 Room Air 21 01/06/17 08:09 97.7 84 21 142/63 97 Room Air 01/06/17 04:00 97.7 80 18 115/58 99 Room Air 01/06/17 00:00 97.9 75 18 101/50 100 Room Air Intake and Output 01/05/17 01/06/17 19:00 07:00 Intake Total 1840 ml 3480 ml Output Total 1260 ml 4150 ml Balance 580 ml -670 ml Intake Oral 120 ml 120 ml IV Total 520 ml 360 ml Other 1200 ml 3000 ml Output Urine Total 4150 ml Estimated Blood Loss 10 ml Other 1250 ml Laboratory Tests 01/06/17 06:00: White Blood Count 9.6, Red Blood Count 3.04L, Hemoglobin 9.0L, Hematocrit 28.7L , Mean Corpuscular Volume 94, Mean Corpuscular Hemoglobin 29.6, Mean Corpuscular Hemoglobin Concent 31.3L, Red Cell Distribution Width 19.4H, Platelet Count 167, Mean Platelet Volume 9.0, Neutrophils (%) (Auto) 75.7H, Lymphocytes (%) (Auto) 12.5L, Monocytes (%) (Auto) 7.9, Eosinophils (%) (Auto) 2.7, Basophils (%) (Auto) 1.1, Sodium Level 142, Potassium Level 4.2, Chloride Level 100, Carbon Dioxide Level 31H, Anion Gap 11, Blood Urea Nitrogen 23, Creatinine 4.8H, Estimat Glomerular Filtration Rate 11.0, Glucose Level 164H, Calcium Level 8.8, Total Bilirubin 0.4, Aspartate Amino Transf (AST/SGOT) 13, Alanine Aminotransferase (ALT/SGPT) 5, Alkaline Phosphatase 51, Total Protein 6.6, Albumin 2.5L, Globulin 4.1, Albumin/Globulin Ratio 0.6L Current Medications Medications (Trade) Dose Ordered Sig/Angelique Route PRN Reason Start Time Stop Time Status Last Admin Dose Admin Al Hydroxide/Mg Hydroxide (Mylanta II) 30 ml Q6H PRN ORAL dyspepsia 01/04/17 10:30 02/03/17 10:29 Albuterol/ Ipratropium (DuoNeb 0.5-3(2.5)mg/3ml) 3 ml Q6H PRN HHN dyspnea 01/04/17 10:30 01/09/17 10:29 Aspirin (ASA) 325 mg DAILY ORAL 01/07/17 09:00 02/06/17 08:59 UNV Belladonna Alkaloids/Opium (B & O (15-A)) 30 mg TWICE A DAY PRN RECTAL spasm 01/05/17 10:00 01/12/17 09:59 01/05/17 12:45 Carvedilol (Coreg) 12.5 mg EVERY 12 HOURS ORAL 01/04/17 09:00 02/03/17 08:59 01/04/17 20:19 Dextrose (Dextrose 50%) STAT PRN IV Hypoglycemia 01/04/17 22:30 02/03/17 22:29 Epoetin Tristan (Procrit (for ESRD on dialysis)) 10,000 units MON-WED-WED SUBQ 01/04/17 21:00 02/03/17 20:59 01/04/17 20:21 Hydralazine HCl (Apresoline) 75 mg Q12HR ORAL 01/04/17 09:00 02/03/17 08:59 01/04/17 20:20 Insulin Aspart (NovoLOG) BEFORE MEALS AND HS SUBQ 01/04/17 06:30 02/03/17 06:29 01/06/17 22:03 Irbesartan (Avapro) 300 mg DAILY ORAL 01/04/17 09:00 02/03/17 08:59 01/04/17 10:29 Isosorbide Mononitrate (Imdur) 30 mg DAILY ORAL 01/04/17 09:00 02/03/17 08:59 01/04/17 10:28 Ondansetron HCl (Zofran) 4 mg Q6H PRN IVP Nausea & Vomiting 01/04/17 10:30 02/03/17 10:29 Polyethylene Glycol (Miralax) 17 gm HSPRN PRN ORAL Constipation 01/04/17 22:30 02/03/17 22:29 Pravastatin Sodium (Pravachol) 40 mg BEDTIME ORAL 01/04/17 21:00 02/03/17 20:59 01/06/17 21:56 Tramadol HCl (Ultram) 50 mg Q6H PRN ORAL For Pain 01/04/17 07:45 01/11/17 07:44 01/06/17 16:42 Zolpidem Tartrate (Ambien) 5 mg HSPRN PRN ORAL Insomnia 01/04/17 22:30 02/03/17 22:29 ELIA MARADIAGA Jan 06, 2017 22:35
--- NOTE | 2017-01-06 23:32 | Cardiology Progress Note ---
Assessment/Plan Assessment/Plan The patient is seen and examined, full consult to follow. Objective Last 24 Hour Vital Signs Date Time Temp Pulse Resp B/P Pulse Ox O2 Delivery O2 Flow Rate FiO2 01/06/17 21:57 120/54 01/06/17 21:57 78 120/54 01/06/17 19:25 78 18 Room Air 01/06/17 19:00 98.1 80 18 120/54 97 Room Air 01/06/17 16:00 98.2 83 18 116/49 98 Room Air 01/06/17 12:15 98.0 55 21 114/60 95 Room Air 01/06/17 11:34 Room Air 21 01/06/17 11:24 Room Air 21 01/06/17 09:30 76 18 Room Air 01/06/17 09:15 84 21 97 01/06/17 08:59 142/63 01/06/17 08:59 142/63 01/06/17 08:59 142/63 01/06/17 08:59 84 142/63 01/06/17 08:35 Room Air 21 01/06/17 08:09 97.7 84 21 142/63 97 Room Air 01/06/17 04:00 97.7 80 18 115/58 99 Room Air 01/06/17 00:00 97.9 75 18 101/50 100 Room Air Intake and Output 01/05/17 01/06/17 19:00 07:00 Intake Total 1840 ml 3480 ml Output Total 1260 ml 4150 ml Balance 580 ml -670 ml Intake Oral 120 ml 120 ml IV Total 520 ml 360 ml Other 1200 ml 3000 ml Output Urine Total 4150 ml Estimated Blood Loss 10 ml Other 1250 ml Laboratory Tests Test 01/06/17 06:00 White Blood Count 9.6 K/UL (4.8-10.8) Red Blood Count 3.04 M/UL (4.20-5.40) L Hemoglobin 9.0 G/DL (12.0-16.0) L Hematocrit 28.7 % (37.0-47.0) L Mean Corpuscular Volume 94 FL (80-99) Mean Corpuscular Hemoglobin 29.6 PG (27.0-31.0) Mean Corpuscular Hemoglobin Concent 31.3 G/DL (32.0-36.0) L Red Cell Distribution Width 19.4 % (11.6-14.8) H Platelet Count 167 K/UL (150-450) Mean Platelet Volume 9.0 FL (6.5-10.1) Neutrophils (%) (Auto) 75.7 % (45.0-75.0) H Lymphocytes (%) (Auto) 12.5 % (20.0-45.0) L Monocytes (%) (Auto) 7.9 % (1.0-10.0) Eosinophils (%) (Auto) 2.7 % (0.0-3.0) Basophils (%) (Auto) 1.1 % (0.0-2.0) Sodium Level 142 mEQ/L (135-145) Potassium Level 4.2 mEQ/L (3.4-4.9) Chloride Level 100 mEQ/L (98-107) Carbon Dioxide Level 31 mEQ/L (20-30) H Anion Gap 11 (5-15) Blood Urea Nitrogen 23 mg/dL (7-23) Creatinine 4.8 mg/dL (0.5-0.9) H Estimat Glomerular Filtration Rate 11.0 mL/min (>60) Glucose Level 164 mg/dL (74-106) H Calcium Level 8.8 mg/dL (8.6-10.2) Total Bilirubin 0.4 mg/dL (0.0-1.2) Aspartate Amino Transf (AST/SGOT) 13 U/L (5-40) Alanine Aminotransferase (ALT/SGPT) 5 U/L (3-33) Alkaline Phosphatase 51 U/L (35-104) Total Protein 6.6 g/dL (6.6-8.7) Albumin 2.5 g/dL (3.5-5.2) L Globulin 4.1 g/dL Albumin/Globulin Ratio 0.6 (1.0-2.7) L DONAVAN BLANCAS Jan 06, 2017 23:32
[2017-01-07] MEDS: traMADol 50mg tab ORAL PRN ×3 (00:03→23:47)
[2017-01-07 00:44] VITALS: BP 150/65
[2017-01-07 04:00] VITALS: BP 138/59
[2017-01-07] MEDS: NovoLOG Insulin Flexpen SUBQ SCH ×4 (06:13→20:16)
[2017-01-07 06:50] LABS: MEAN CORPUSCULAR HEMOGLOBIN 29.9 PG (27.0-31.0); MEAN CORPUSCULAR HGB CONC 31.3 G/DL (32.0-36.0); MEAN CORPUSCULAR VOLUME 96 FL (80-99); MEAN PLATELET VOLUME 9.1 FL (6.5-10.1); PLATELET COUNT 130 K/UL (150-450); RED BLOOD COUNT 2.61 M/UL (4.20-5.40); RED CELL DISTRIBUTION WIDTH 19.2 % (11.6-14.8); WHITE BLOOD COUNT 8.7 K/UL (4.8-10.8)
[2017-01-07 07:04] LABS: CALCIUM 8.4 mg/dL (8.6-10.2); CREATININE 2.9 mg/dL (0.5-0.9); GLOMERULAR FILTRATION RATE 19.6 mL/min (>60); POTASSIUM 4.5 mEQ/L (3.4-4.9)
[2017-01-07 08:00] VITALS: BP 108/53
[2017-01-07 08:00] LABS: BAND NEUTROPHILS % (MANUAL) 0 % (0-8); BASOPHILS % (MANUAL) 1 % (0-2); EOSINOPHILS % (MANUAL) 8 % (0-3); LYMPHOCYTES % (MANUAL) 15 % (20-45); NEUTROPHILS % (MANUAL) 69 % (45-75); PLATELET ESTIMATE DECREASED; TOTAL CELLS COUNTED 100
[2017-01-07 08:01] LABS: ANISOCYTOSIS 2+; HYPOCHROMASIA 3+; PLATELET MORPHOLOGY NORMAL
[2017-01-07] MEDS: Imdur 30mg tab ORAL SCH (08:40)
[2017-01-07] MEDS: Irbesartan 150mg tablet ORAL SCH (08:40)
[2017-01-07] MEDS: Carvedilol 12.5mg tab ORAL SCH ×2 (08:41→20:11)
[2017-01-07] MEDS: HydrALAZINE 25mg tab ORAL SCH ×2 (08:43→20:10)
--- NOTE | 2017-01-07 10:18 | Nephrology Progress Note ---
Assessment/Plan Assessment 1. Severe hypokalemia. resolved 2. End-stage renal disease. 3. Anemia of chronic kidney disease. 4. Hematuria. 5. Questionable bladder CA when there was urinary tract infection. 6. Hypertension, which is uncontrolled at this time. 7.malnutrition Plan dialysis in in am continue epogen check H&H nutritional support prealbumin of 7 no need for phosphate binder Subjective Constitutional: Reports: no symptoms HEENT: Reports: no symptoms Genitourinary: Reports: no symptoms Neurologic/Psychiatric: Reports: no symptoms Subjective awake confused Objective Objective Last 24 Hour Vital Signs Date Time Temp Pulse Resp B/P Pulse Ox O2 Delivery O2 Flow Rate FiO2 01/07/17 08:43 108/53 01/07/17 08:41 83 108/53 01/07/17 08:40 108/53 01/07/17 08:40 108/53 01/07/17 08:00 97.9 83 19 108/53 100 Room Air 01/07/17 07:51 84 16 Room Air 01/07/17 04:00 97.9 80 18 138/59 99 Room Air 01/07/17 00:44 97.2 60 22 150/65 97 Room Air 01/06/17 21:57 120/54 01/06/17 21:57 78 120/54 01/06/17 19:25 78 18 Room Air 01/06/17 19:00 98.1 80 18 120/54 97 Room Air 01/06/17 16:00 98.2 83 18 116/49 98 Room Air 01/06/17 12:15 98.0 55 21 114/60 95 Room Air 01/06/17 11:34 Room Air 21 01/06/17 11:24 Room Air 21 Intake and Output 01/06/17 01/07/17 19:00 07:00 Intake Total 600 ml 360 ml Output Total 2800 ml 200 ml Balance -2200 ml 160 ml Intake Oral 480 ml 360 ml IV Total 120 ml Output Urine Total 700 ml 200 ml Hemodialysis UF 2100 ml Laboratory Tests 01/07/17 05:50: White Blood Count 8.7, Red Blood Count 2.61L, Hemoglobin 7.8L, Hematocrit 25.0L , Mean Corpuscular Volume 96, Mean Corpuscular Hemoglobin 29.9, Mean Corpuscular Hemoglobin Concent 31.3L, Red Cell Distribution Width 19.2H, Platelet Count 130L, Mean Platelet Volume 9.1, Neutrophils (%) (Auto) , Lymphocytes (%) (Auto) , Monocytes (%) (Auto) , Eosinophils (%) (Auto) , Basophils (%) (Auto) , Differential Total Cells Counted 100, Neutrophils % ( Manual) 69, Lymphocytes % (Manual) 15L, Monocytes % (Manual) 7, Eosinophils % ( Manual) 8H, Basophils % (Manual) 1, Band Neutrophils 0, Platelet Estimate DecreasedL, Platelet Morphology Normal, Hypochromasia 3+, Anisocytosis 2+, Sodium Level 142, Potassium Level 4.5, Chloride Level 100, Carbon Dioxide Level 33H, Anion Gap 9, Blood Urea Nitrogen 12, Creatinine 2.9H, Estimat Glomerular Filtration Rate 19.6, Glucose Level 90, Calcium Level 8.4L Height (Feet): 4 Height (Inches): 5.00 Weight (Pounds): 99 Objective HEAD AND NECK: No JVP. No LAD. No thyromegaly. Extraocular movement intact. Pupils are reactive to light and accommodation. LUNGS: Decreased breathing sounds. CARDIAC: Regular rate and rhythm. S1-S2. No murmur. No rub. ABDOMEN: Soft and nontender. EXTREMITIES: She has bilateral lower extremity amputation and has a Andrew catheter. It has blood in it. KALINA WELLS Jan 07, 2017 10:18
[2017-01-07 12:00] VITALS: BP 130/58
[2017-01-07] MEDS: Nephrovite tab ORAL SCH (12:32)
[2017-01-07 16:00] VITALS: BP 97/49
[2017-01-07] MEDS ORDERED: NS Irrig 1000ml ONE (17:20)
--- NOTE | 2017-01-07 17:46 | Internal Med Progress Note ---
Subjective Date of Service: Jan 07, 2017 Physician Name Nahomy Merrill Attending Physician Scotty Wayne MD Current Medications Medications (Trade) Dose Ordered Sig/Angelique Route PRN Reason Start Time Stop Time Status Last Admin Dose Admin Al Hydroxide/Mg Hydroxide (Mylanta II) 30 ml Q6H PRN ORAL dyspepsia 01/04/17 10:30 02/03/17 10:29 Albuterol/ Ipratropium (DuoNeb 0.5-3(2.5)mg/3ml) 3 ml Q6H PRN HHN dyspnea 01/04/17 10:30 01/09/17 10:29 Belladonna Alkaloids/Opium (B & O (15-A)) 30 mg TWICE A DAY PRN RECTAL spasm 01/05/17 10:00 01/12/17 09:59 01/05/17 12:45 Carvedilol (Coreg) 12.5 mg EVERY 12 HOURS ORAL 01/04/17 09:00 02/03/17 08:59 01/07/17 08:41 Dextrose (Dextrose 50%) STAT PRN IV Hypoglycemia 01/04/17 22:30 02/03/17 22:29 Epoetin Tristan (Procrit (for ESRD on dialysis)) 10,000 units WED-WED-WED SUBQ 01/04/17 21:00 02/03/17 20:59 01/04/17 20:21 Hydralazine HCl (Apresoline) 75 mg Q12HR ORAL 01/04/17 09:00 02/03/17 08:59 01/04/17 20:20 Insulin Aspart (NovoLOG) BEFORE MEALS AND HS SUBQ 01/04/17 06:30 02/03/17 06:29 01/07/17 17:27 Irbesartan (Avapro) 300 mg DAILY ORAL 01/04/17 09:00 02/03/17 08:59 01/07/17 08:40 Isosorbide Mononitrate (Imdur) 30 mg DAILY ORAL 01/04/17 09:00 02/03/17 08:59 01/07/17 08:40 Ondansetron HCl (Zofran) 4 mg Q6H PRN IVP Nausea & Vomiting 01/04/17 10:30 02/03/17 10:29 Polyethylene Glycol (Miralax) 17 gm HSPRN PRN ORAL Constipation 01/04/17 22:30 02/03/17 22:29 Pravastatin Sodium (Pravachol) 40 mg BEDTIME ORAL 01/04/17 21:00 02/03/17 20:59 01/06/17 21:56 Tramadol HCl (Ultram) 50 mg Q6H PRN ORAL For Pain 01/04/17 07:45 01/11/17 07:44 01/07/17 17:29 Vitamin B Complex/ Vit C/Folic Acid (Nephrovite) 1 tab DAILY ORAL 01/07/17 12:00 02/06/17 11:59 01/07/17 12:32 Zolpidem Tartrate (Ambien) 5 mg HSPRN PRN ORAL Insomnia 01/04/17 22:30 02/03/17 22:29 Allergies: Coded Allergies: ASPIRIN (Verified Allergy, Mild, 08/15/10) PENICILLINS (Verified Allergy, Mild, 08/15/10) LEBRON INHIBITORS (Unverified Allergy, Unknown, 01/01/17) ACETAMINOPHEN (Unverified Allergy, Unknown, 09/18/15) patient stated CODEINE (Unverified Allergy, Unknown, 01/01/17) PENICILLIN (Verified Allergy, Unknown, 09/17/15) ROS Limited/Unobtainable: No Constitutional: Reports: no symptoms HEENT: Reports: no symptoms Cardiovascular: Reports: no symptoms Respiratory: Reports: no symptoms Gastrointestinal/Abdominal: Reports: no symptoms Genitourinary: Reports: hematuria Neurologic/Psychiatric: Reports: no symptoms Subjective 66 YO F admitted with hematuria. S/P cystoscopy 01/05/17. Cover for Int Med- Dr Wayne. Objective Last Vital Signs Date Time Temp Pulse Resp B/P Pulse Ox O2 Delivery O2 Flow Rate FiO2 01/07/17 12:00 97.9 86 18 130/58 98 Room Air 01/06/17 11:34 21 Laboratory Tests Test 01/07/17 05:50 White Blood Count 8.7 K/UL (4.8-10.8) Red Blood Count 2.61 M/UL (4.20-5.40) L Hemoglobin 7.8 G/DL (12.0-16.0) L Hematocrit 25.0 % (37.0-47.0) L Mean Corpuscular Volume 96 FL (80-99) Mean Corpuscular Hemoglobin 29.9 PG (27.0-31.0) Mean Corpuscular Hemoglobin Concent 31.3 G/DL (32.0-36.0) L Red Cell Distribution Width 19.2 % (11.6-14.8) H Platelet Count 130 K/UL (150-450) L Mean Platelet Volume 9.1 FL (6.5-10.1) Neutrophils (%) (Auto) % (45.0-75.0) Lymphocytes (%) (Auto) % (20.0-45.0) Monocytes (%) (Auto) % (1.0-10.0) Eosinophils (%) (Auto) % (0.0-3.0) Basophils (%) (Auto) % (0.0-2.0) Differential Total Cells Counted 100 Neutrophils % (Manual) 69 % (45-75) Lymphocytes % (Manual) 15 % (20-45) L Monocytes % (Manual) 7 % (1-10) Eosinophils % (Manual) 8 % (0-3) H Basophils % (Manual) 1 % (0-2) Band Neutrophils 0 % (0-8) Platelet Estimate Decreased L Platelet Morphology Normal Hypochromasia 3+ Anisocytosis 2+ Sodium Level 142 mEQ/L (135-145) Potassium Level 4.5 mEQ/L (3.4-4.9) Chloride Level 100 mEQ/L (98-107) Carbon Dioxide Level 33 mEQ/L (20-30) H Anion Gap 9 (5-15) Blood Urea Nitrogen 12 mg/dL (7-23) Creatinine 2.9 mg/dL (0.5-0.9) H Estimat Glomerular Filtration Rate 19.6 mL/min (>60) Glucose Level 90 mg/dL (74-106) Calcium Level 8.4 mg/dL (8.6-10.2) L Intake and Output 01/06/17 01/07/17 19:00 07:00 Intake Total 600 ml 360 ml Output Total 2800 ml 200 ml Balance -2200 ml 160 ml Intake Oral 480 ml 360 ml IV Total 120 ml Output Urine Total 700 ml 200 ml Hemodialysis UF 2100 ml Objective General Appearance: moderate distress, cachetic, thin EENT: PERRL/EOMI, normal ENT inspection, TMs normal Neck: non-tender, normal alignment, supple Cardiovascular: normal peripheral pulses, normal rate, regular rhythm, no gallop/murmur, no JVD Respiratory/Chest: chest wall non-tender, lungs clear, normal breath sounds, no respiratory distress, no accessory muscle use Abdomen: normal bowel sounds, non tender, soft, no organomegaly, no mass Extremities: other - Bilateral BKA Neurologic: automatic blocker II-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 (2) Dysfunctional uterine bleeding Assessment & Plan: Pelvic exam under anesthesia cancelled-see [facility] note. (3) Severe anemia Assessment & Plan: Type and cross 2 units PRBC. Transfuse during dialysis on . (4) Hypokalemia Assessment & Plan: S/P replacement. (5) ESRD on hemodialysis Assessment & Plan: See nephrology note. Next hemodialysis Wednesday01/08/17 (6) Scleroderma (7) Cerebral vascular disease (8) Expressive aphasia (9) Below knee amputation status (10) Necrosis of finger (11) ESRD (end stage renal disease) Assessment & Plan: Next Hemodialysis 12/3116. (12) HTN (hypertension) Assessment & Plan: Cont avapro and hydralazine. (13) Hematuria Assessment & Plan: S/P cystoscopy and clot evacuation on 01/05/17-see urology note. Bladder irrigation q 4 hr Status: not improved Assessment/Plan Discharge planning: SNF. NAHOMY MERRILL Jan 07, 2017 17:46
[2017-01-07 19:00] VITALS: BP 107/54
--- NOTE | 2017-01-07 21:47 | Cardiology Progress Note ---
Assessment/Plan Assessment/Plan 1. Hypertensive heart disease with normal LVEF, continue coreg, hydralazine and irbesartan. 2. ESRD 3. No evidence of cardiac shunting on echocardiography. Subjective Subjective No cardiac events. Denies chest pain or SOB. Objective Last 24 Hour Vital Signs Date Time Temp Pulse Resp B/P Pulse Ox O2 Delivery O2 Flow Rate FiO2 01/07/17 20:11 76 107/54 01/07/17 20:10 107/54 01/07/17 19:41 83 18 Room Air 01/07/17 16:00 97.5 79 18 97/49 97 Room Air 01/07/17 12:00 97.9 86 18 130/58 98 Room Air 01/07/17 08:43 108/53 01/07/17 08:41 83 108/53 01/07/17 08:40 108/53 01/07/17 08:40 108/53 01/07/17 08:00 97.9 83 19 108/53 100 Room Air 01/07/17 07:51 84 16 Room Air 01/07/17 04:00 97.9 80 18 138/59 99 Room Air 01/07/17 00:44 97.2 60 22 150/65 97 Room Air 01/06/17 21:57 120/54 01/06/17 21:57 78 120/54 Intake and Output 01/06/17 01/07/17 19:00 07:00 Intake Total 600 ml 360 ml Output Total 2800 ml 200 ml Balance -2200 ml 160 ml Intake Oral 480 ml 360 ml IV Total 120 ml Output Urine Total 700 ml 200 ml Hemodialysis UF 2100 ml 2D Echo: EF 55%, sev LVH, LAE, grade I lVDD Laboratory Tests Test 01/07/17 05:50 White Blood Count 8.7 K/UL (4.8-10.8) Red Blood Count 2.61 M/UL (4.20-5.40) L Hemoglobin 7.8 G/DL (12.0-16.0) L Hematocrit 25.0 % (37.0-47.0) L Mean Corpuscular Volume 96 FL (80-99) Mean Corpuscular Hemoglobin 29.9 PG (27.0-31.0) Mean Corpuscular Hemoglobin Concent 31.3 G/DL (32.0-36.0) L Red Cell Distribution Width 19.2 % (11.6-14.8) H Platelet Count 130 K/UL (150-450) L Mean Platelet Volume 9.1 FL (6.5-10.1) Neutrophils (%) (Auto) % (45.0-75.0) Lymphocytes (%) (Auto) % (20.0-45.0) Monocytes (%) (Auto) % (1.0-10.0) Eosinophils (%) (Auto) % (0.0-3.0) Basophils (%) (Auto) % (0.0-2.0) Differential Total Cells Counted 100 Neutrophils % (Manual) 69 % (45-75) Lymphocytes % (Manual) 15 % (20-45) L Monocytes % (Manual) 7 % (1-10) Eosinophils % (Manual) 8 % (0-3) H Basophils % (Manual) 1 % (0-2) Band Neutrophils 0 % (0-8) Platelet Estimate Decreased L Platelet Morphology Normal Hypochromasia 3+ Anisocytosis 2+ Sodium Level 142 mEQ/L (135-145) Potassium Level 4.5 mEQ/L (3.4-4.9) Chloride Level 100 mEQ/L (98-107) Carbon Dioxide Level 33 mEQ/L (20-30) H Anion Gap 9 (5-15) Blood Urea Nitrogen 12 mg/dL (7-23) Creatinine 2.9 mg/dL (0.5-0.9) H Estimat Glomerular Filtration Rate 19.6 mL/min (>60) Glucose Level 90 mg/dL (74-106) Calcium Level 8.4 mg/dL (8.6-10.2) L Objective HEENT: Eyes, pupils are equal and responsive to light and accommodation. Extraocular movements are intact. NECK: No JVD, no carotid bruit, carotid upstroke 2+ B/L CHEST: Lungs are clear to auscultation CARDIOVASCULAR: Regular rhythm and rate. S1 and S2 normal without murmurs, rubs, gallops. ABDOMEN: Soft, nontender, and nondistended. Positive bowel sounds. No hepatosplenomegaly, no rebound or guarding noted. EXTREMITIES: The patient had a bilateral [id number] amputation. Otherwise, without clubbing, cyanosis or edema. DONAVAN BLANCAS Jan 07, 2017 21:47
--- NOTE | 2017-01-07 22:11 | Pulmonology Progress Note ---
Assessment/Plan Problems: (1) Symptomatic anemia (2) Bladder hemorrhage (3) Uterine hemorrhage (4) ESRF (end stage renal failure) (5) DM renal manif type II Subjective Allergies: Coded Allergies: ASPIRIN (Verified Allergy, Mild, 08/15/10) PENICILLINS (Verified Allergy, Mild, 08/15/10) LEBRON INHIBITORS (Unverified Allergy, Unknown, 01/01/17) ACETAMINOPHEN (Unverified Allergy, Unknown, 09/18/15) patient stated CODEINE (Unverified Allergy, Unknown, 01/01/17) PENICILLIN (Verified Allergy, Unknown, 09/17/15) Objective Last 24 Hour Vital Signs Date Time Temp Pulse Resp B/P Pulse Ox O2 Delivery O2 Flow Rate FiO2 01/07/17 20:11 76 107/54 01/07/17 20:10 107/54 01/07/17 19:41 83 18 Room Air 01/07/17 16:00 97.5 79 18 97/49 97 Room Air 01/07/17 12:00 97.9 86 18 130/58 98 Room Air 01/07/17 08:43 108/53 01/07/17 08:41 83 108/53 01/07/17 08:40 108/53 01/07/17 08:40 108/53 01/07/17 08:00 97.9 83 19 108/53 100 Room Air 01/07/17 07:51 84 16 Room Air 01/07/17 04:00 97.9 80 18 138/59 99 Room Air 01/07/17 00:44 97.2 60 22 150/65 97 Room Air Intake and Output 01/06/17 01/07/17 19:00 07:00 Intake Total 600 ml 360 ml Output Total 2800 ml 200 ml Balance -2200 ml 160 ml Intake Oral 480 ml 360 ml IV Total 120 ml Output Urine Total 700 ml 200 ml Hemodialysis UF 2100 ml Laboratory Tests 01/07/17 05:50: White Blood Count 8.7, Red Blood Count 2.61L, Hemoglobin 7.8L, Hematocrit 25.0L , Mean Corpuscular Volume 96, Mean Corpuscular Hemoglobin 29.9, Mean Corpuscular Hemoglobin Concent 31.3L, Red Cell Distribution Width 19.2H, Platelet Count 130L, Mean Platelet Volume 9.1, Neutrophils (%) (Auto) , Lymphocytes (%) (Auto) , Monocytes (%) (Auto) , Eosinophils (%) (Auto) , Basophils (%) (Auto) , Differential Total Cells Counted 100, Neutrophils % ( Manual) 69, Lymphocytes % (Manual) 15L, Monocytes % (Manual) 7, Eosinophils % ( Manual) 8H, Basophils % (Manual) 1, Band Neutrophils 0, Platelet Estimate DecreasedL, Platelet Morphology Normal, Hypochromasia 3+, Anisocytosis 2+, Sodium Level 142, Potassium Level 4.5, Chloride Level 100, Carbon Dioxide Level 33H, Anion Gap 9, Blood Urea Nitrogen 12, Creatinine 2.9H, Estimat Glomerular Filtration Rate 19.6, Glucose Level 90, Calcium Level 8.4L Current Medications Medications (Trade) Dose Ordered Sig/Angelique Route PRN Reason Start Time Stop Time Status Last Admin Dose Admin Al Hydroxide/Mg Hydroxide (Mylanta II) 30 ml Q6H PRN ORAL dyspepsia 01/04/17 10:30 02/03/17 10:29 Albuterol/ Ipratropium (DuoNeb 0.5-3(2.5)mg/3ml) 3 ml Q6H PRN HHN dyspnea 01/04/17 10:30 01/09/17 10:29 Belladonna Alkaloids/Opium (B & O (15-A)) 30 mg TWICE A DAY PRN RECTAL spasm 01/05/17 10:00 01/12/17 09:59 01/05/17 12:45 Carvedilol (Coreg) 12.5 mg EVERY 12 HOURS ORAL 01/04/17 09:00 02/03/17 08:59 01/07/17 08:41 Dextrose (Dextrose 50%) STAT PRN IV Hypoglycemia 01/04/17 22:30 02/03/17 22:29 Epoetin Tristan (Procrit (for ESRD on dialysis)) 10,000 units MON-WED-FRI SUBQ 01/04/17 21:00 02/03/17 20:59 01/04/17 20:21 Hydralazine HCl (Apresoline) 75 mg Q12HR ORAL 01/04/17 09:00 02/03/17 08:59 01/04/17 20:20 Insulin Aspart (NovoLOG) BEFORE MEALS AND HS SUBQ 01/04/17 06:30 02/03/17 06:29 01/07/17 20:16 Irbesartan (Avapro) 300 mg DAILY ORAL 01/04/17 09:00 02/03/17 08:59 01/07/17 08:40 Isosorbide Mononitrate (Imdur) 30 mg DAILY ORAL 01/04/17 09:00 02/03/17 08:59 01/07/17 08:40 Ondansetron HCl (Zofran) 4 mg Q6H PRN IVP Nausea & Vomiting 01/04/17 10:30 02/03/17 10:29 Polyethylene Glycol (Miralax) 17 gm HSPRN PRN ORAL Constipation 01/04/17 22:30 02/03/17 22:29 Pravastatin Sodium (Pravachol) 40 mg BEDTIME ORAL 01/04/17 21:00 02/03/17 20:59 01/07/17 20:13 Tramadol HCl (Ultram) 50 mg Q6H PRN ORAL For Pain 01/04/17 07:45 01/11/17 07:44 01/07/17 17:29 Vitamin B Complex/ Vit C/Folic Acid (Nephrovite) 1 tab DAILY ORAL 01/07/17 12:00 02/06/17 11:59 01/07/17 12:32 Zolpidem Tartrate (Ambien) 5 mg HSPRN PRN ORAL Insomnia 01/04/17 22:30 02/03/17 22:29 ELIA MARADIAGA Jan 07, 2017 22:11
[2017-01-08] VITALS: BP 134/64
[2017-01-08 04:00] VITALS: BP 152/67
[2017-01-08 05:43] LABS: MEAN CORPUSCULAR HEMOGLOBIN 30.5 PG (27.0-31.0); MEAN CORPUSCULAR HGB CONC 31.5 G/DL (32.0-36.0); MEAN CORPUSCULAR VOLUME 97 FL (80-99); MEAN PLATELET VOLUME 8.7 FL (6.5-10.1); PLATELET COUNT 148 K/UL (150-450); RED BLOOD COUNT 2.41 M/UL (4.20-5.40); RED CELL DISTRIBUTION WIDTH 19.6 % (11.6-14.8); WHITE BLOOD COUNT 10.5 K/UL (4.8-10.8)
[2017-01-08 06:05] LABS: ALBUMIN/GLOBULIN RATIO 0.6 (1.0-2.7); CALCIUM 8.6 mg/dL (8.6-10.2); CREATININE 4.3 mg/dL (0.5-0.9); GLOMERULAR FILTRATION RATE 12.4 mL/min (>60); MAGNESIUM 1.9 mg/dL (1.7-2.5); TOTAL PROTEIN 6.2 g/dL (6.6-8.7)
[2017-01-08] MEDS: NovoLOG Insulin Flexpen SUBQ SCH ×4 (06:40→20:44)
--- NOTE | 2017-01-08 07:43 | Pulmonology Progress Note ---
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 HD as per nephro, monitor renal parameters, lytes urology recommended dc home with Andrew x 5 days continue EPO nutritional support, prealbumin -7 O2 HHN prn ORACLE PROGRAMMER seen the patient, unable to do pelvic exam and biopsy at the bedside ORACLE PROGRAMMER initially planned to perform exam under anesthesia, possible dilation and curettage, hysteroscopy, possible biopsies however procedure was cancelled patient does have calcified fibroids, but they are not likely source of bleeding dc planning when stable HH case discussed and evaluated by supervising physician Subjective Allergies: Coded Allergies: ASPIRIN (Verified Allergy, Mild, 08/15/10) PENICILLINS (Verified Allergy, Mild, 08/15/10) LEBRON INHIBITORS (Unverified Allergy, Unknown, 01/01/17) ACETAMINOPHEN (Unverified Allergy, Unknown, 09/18/15) patient stated CODEINE (Unverified Allergy, Unknown, 01/01/17) PENICILLIN (Verified Allergy, Unknown, 09/17/15) Subjective HH down today to 7.323.3 despite transfusion of 2 u PRBC on 01/07 Objective Last 24 Hour Vital Signs Date Time Temp Pulse Resp B/P Pulse Ox O2 Delivery O2 Flow Rate FiO2 01/08/17 04:00 98.1 87 18 152/67 99 Room Air 01/08/17 00:00 97.9 89 18 134/64 100 Room Air 01/07/17 20:11 76 107/54 01/07/17 20:10 107/54 01/07/17 19:41 83 18 Room Air 01/07/17 19:00 98.0 76 18 107/54 98 Room Air 01/07/17 16:00 97.5 79 18 97/49 97 Room Air 01/07/17 12:00 97.9 86 18 130/58 98 Room Air 01/07/17 08:43 108/53 01/07/17 08:41 83 108/53 01/07/17 08:40 108/53 01/07/17 08:40 108/53 01/07/17 08:00 97.9 83 19 108/53 100 Room Air 01/07/17 07:51 84 16 Room Air Intake and Output 01/07/17 01/08/17 19:00 07:00 Intake Total 760 ml 360 ml Output Total 150 ml 70 ml Balance 610 ml 290 ml Intake Oral 760 ml 360 ml Output Urine Total 150 ml 70 ml General Appearance: no acute distress, other - bedridden, awake, alert, responsive, expressive aphasia HEENT: normocephalic, atraumatic, anicteric, mucous membranes moist Respiratory/Chest: lungs clear, no respiratory distress, no accessory muscle use Cardiovascular: normal peripheral pulses, regular rhythm, no JVD, other - LUE AV shunt Abdomen: normal bowel sounds, soft, non tender, non distended Extremities: other - bilateral BKA, left necrotic middle finger Neurologic/Psychiatric: alert, responsive - expresive aphasia , other - L side weakness Musculoskeletal: atrophy - BLE Laboratory Tests 01/08/17 05:25: White Blood Count 10.5, Red Blood Count 2.41L, Hemoglobin 7.3L, Hematocrit 23.3L , Mean Corpuscular Volume 97, Mean Corpuscular Hemoglobin 30.5, Mean Corpuscular Hemoglobin Concent 31.5L, Red Cell Distribution Width 19.6H, Platelet Count 148L, Mean Platelet Volume 8.7, Neutrophils (%) (Auto) , Lymphocytes (%) (Auto) , Monocytes (%) (Auto) , Eosinophils (%) (Auto) , Basophils (%) (Auto) , Neutrophils % (Manual) [Pending], Lymphocytes % (Manual) [Pending], Platelet Estimate [Pending], Platelet Morphology [Pending], Sodium Level 139, Potassium Level 4.0, Chloride Level 95L, Carbon Dioxide Level 32H, Anion Gap 12, Blood Urea Nitrogen 29H, Creatinine 4.3H, Estimat Glomerular Filtration Rate 12.4, Glucose Level 113H, Calcium Level 8.6, Magnesium Level 1.9 , Total Bilirubin 0.3, Aspartate Amino Transf (AST/SGOT) 15, Alanine Aminotransferase (ALT/SGPT) 5, Alkaline Phosphatase 58, Total Protein 6.2L, Albumin 2.5L, Globulin 3.7, Albumin/Globulin Ratio 0.6L Current Medications Medications (Trade) Dose Ordered Sig/Angelique Route PRN Reason Start Time Stop Time Status Last Admin Dose Admin Al Hydroxide/Mg Hydroxide (Mylanta II) 30 ml Q6H PRN ORAL dyspepsia 01/04/17 10:30 02/03/17 10:29 Albuterol/ Ipratropium (DuoNeb 0.5-3(2.5)mg/3ml) 3 ml Q6H PRN HHN dyspnea 01/04/17 10:30 01/09/17 10:29 Belladonna Alkaloids/Opium (B & O (15-A)) 30 mg TWICE A DAY PRN RECTAL spasm 01/05/17 10:00 01/12/17 09:59 01/05/17 12:45 Carvedilol (Coreg) 12.5 mg EVERY 12 HOURS ORAL 01/04/17 09:00 02/03/17 08:59 01/07/17 08:41 Dextrose (Dextrose 50%) STAT PRN IV Hypoglycemia 01/04/17 22:30 02/03/17 22:29 Epoetin Tristan (Procrit (for ESRD on dialysis)) 10,000 units WED-WED-WED SUBQ 01/04/17 21:00 02/03/17 20:59 01/04/17 20:21 Hydralazine HCl (Apresoline) 75 mg Q12HR ORAL 01/04/17 09:00 02/03/17 08:59 01/04/17 20:20 Insulin Aspart (NovoLOG) BEFORE MEALS AND HS SUBQ 01/04/17 06:30 02/03/17 06:29 01/08/17 06:40 Irbesartan (Avapro) 300 mg DAILY ORAL 01/04/17 09:00 02/03/17 08:59 01/07/17 08:40 Isosorbide Mononitrate (Imdur) 30 mg DAILY ORAL 01/04/17 09:00 02/03/17 08:59 01/07/17 08:40 Ondansetron HCl (Zofran) 4 mg Q6H PRN IVP Nausea & Vomiting 01/04/17 10:30 02/03/17 10:29 Polyethylene Glycol (Miralax) 17 gm HSPRN PRN ORAL Constipation 01/04/17 22:30 02/03/17 22:29 Pravastatin Sodium (Pravachol) 40 mg BEDTIME ORAL 01/04/17 21:00 02/03/17 20:59 01/07/17 20:13 Tramadol HCl (Ultram) 50 mg Q6H PRN ORAL For Pain 01/04/17 07:45 01/11/17 07:44 01/07/17 23:47 Vitamin B Complex/ Vit C/Folic Acid (Nephrovite) 1 tab DAILY ORAL 01/07/17 12:00 02/06/17 11:59 01/07/17 12:32 Zolpidem Tartrate (Ambien) 5 mg HSPRN PRN ORAL Insomnia 01/04/17 22:30 02/03/17 22:29 [facility]Kelsea NP Jan 08, 2017 07:43
[2017-01-08 07:57] VITALS: BP 146/62
[2017-01-08 08:27] LABS: BAND NEUTROPHILS % (MANUAL) 4 % (0-8); BASOPHILS % (MANUAL) 0 % (0-2); EOSINOPHILS % (MANUAL) 1 % (0-3); LYMPHOCYTES % (MANUAL) 16 % (20-45); NEUTROPHILS % (MANUAL) 76 % (45-75); PLATELET ESTIMATE ADEQUATE; PLATELET MORPHOLOGY NORMAL; TOTAL CELLS COUNTED 100
[2017-01-08] MEDS ORDERED: DuoNeb 0.5-3(2.5)mg/3ml neb HHN PRN (08:30)
[2017-01-08] MEDS: Irbesartan 150mg tablet ORAL SCH (08:57)
[2017-01-08] MEDS: Imdur 30mg tab ORAL SCH (08:57)
[2017-01-08] MEDS: HydrALAZINE 25mg tab ORAL SCH ×2 (08:57→20:42)
[2017-01-08] MEDS: Carvedilol 12.5mg tab ORAL SCH ×2 (08:57→20:42)
[2017-01-08] MEDS: Nephrovite tab ORAL SCH (09:03)
[2017-01-08 12:01] VITALS: BP 128/52
--- NOTE | 2017-01-08 13:01 | Nephrology Progress Note ---
Assessment/Plan Assessment 1. Severe hypokalemia. resolved 2. End-stage renal disease. 3. Anemia of chronic kidney disease. 4. Hematuria. 5. Questionable bladder CA when there was urinary tract infection. 6. Hypertension, which is uncontrolled at this time. 7.malnutrition Plan dialysis as schedule may need transfusion continue epogen check H&H nutritional support prealbumin of 7 no need for phosphate binder Subjective Constitutional: Reports: no symptoms HEENT: Reports: no symptoms Genitourinary: Reports: no symptoms Neurologic/Psychiatric: Reports: no symptoms Subjective awake confused Objective Objective Last 24 Hour Vital Signs Date Time Temp Pulse Resp B/P Pulse Ox O2 Delivery O2 Flow Rate FiO2 01/08/17 12:01 98.4 84 16 128/52 94 Room Air 01/08/17 11:00 Room Air 01/08/17 08:57 146/62 01/08/17 08:57 146/62 01/08/17 08:57 146/62 01/08/17 08:57 90 146/62 01/08/17 07:57 98.1 90 18 146/62 100 Room Air 01/08/17 07:50 Room Air 01/08/17 04:00 98.1 87 18 152/67 99 Room Air 01/08/17 00:00 97.9 89 18 134/64 100 Room Air 01/07/17 20:11 76 107/54 01/07/17 20:10 107/54 01/07/17 19:41 83 18 Room Air 01/07/17 19:00 98.0 76 18 107/54 98 Room Air 01/07/17 16:00 97.5 79 18 97/49 97 Room Air Intake and Output 01/07/17 01/08/17 19:00 07:00 Intake Total 760 ml 360 ml Output Total 150 ml 70 ml Balance 610 ml 290 ml Intake Oral 760 ml 360 ml Output Urine Total 150 ml 70 ml Laboratory Tests 01/08/17 05:25: White Blood Count 10.5, Red Blood Count 2.41L, Hemoglobin 7.3L, Hematocrit 23.3L , Mean Corpuscular Volume 97, Mean Corpuscular Hemoglobin 30.5, Mean Corpuscular Hemoglobin Concent 31.5L, Red Cell Distribution Width 19.6H, Platelet Count 148L, Mean Platelet Volume 8.7, Neutrophils (%) (Auto) , Lymphocytes (%) (Auto) , Monocytes (%) (Auto) , Eosinophils (%) (Auto) , Basophils (%) (Auto) , Differential Total Cells Counted 100, Neutrophils % ( Manual) 76H, Lymphocytes % (Manual) 16L, Monocytes % (Manual) 3, Eosinophils % ( Manual) 1, Basophils % (Manual) 0, Band Neutrophils 4, Platelet Estimate Adequate, Platelet Morphology Normal, Red Blood Cell Morphology Normal, Sodium Level 139, Potassium Level 4.0, Chloride Level 95L, Carbon Dioxide Level 32H, Anion Gap 12, Blood Urea Nitrogen 29H, Creatinine 4.3H, Estimat Glomerular Filtration Rate 12.4, Glucose Level 113H, Calcium Level 8.6, Magnesium Level 1.9 , Total Bilirubin 0.3, Aspartate Amino Transf (AST/SGOT) 15, Alanine Aminotransferase (ALT/SGPT) 5, Alkaline Phosphatase 58, Total Protein 6.2L, Albumin 2.5L, Globulin 3.7, Albumin/Globulin Ratio 0.6L Height (Feet): 4 Height (Inches): 5.00 Weight (Pounds): 99 Objective HEAD AND NECK: No JVP. No LAD. No thyromegaly. Extraocular movement intact. Pupils are reactive to light and accommodation. LUNGS: Decreased breathing sounds. CARDIAC: Regular rate and rhythm. S1-S2. No murmur. No rub. ABDOMEN: Soft and nontender. EXTREMITIES: She has bilateral lower extremity amputation and has a Andrew catheter. It has blood in it. KALINA WELLS Jan 08, 2017 13:01
[2017-01-08] MEDS: traMADol 50mg tab ORAL PRN (14:29)
--- NOTE | 2017-01-08 15:38 | Internal Med Progress Note ---
Subjective Date of Service: Jan 08, 2017 Physician Name Nahomy Holloway Attending Physician Scotty Wayne MD Current Medications Medications (Trade) Dose Ordered Sig/Angelique Route PRN Reason Start Time Stop Time Status Last Admin Dose Admin Al Hydroxide/Mg Hydroxide (Mylanta II) 30 ml Q6H PRN ORAL dyspepsia 01/04/17 10:30 02/03/17 10:29 Albuterol/ Ipratropium (DuoNeb 0.5-3(2.5)mg/3ml) 3 ml Q6H PRN HHN dyspnea 01/08/17 08:30 01/13/17 08:29 Belladonna Alkaloids/Opium (B & O (15-A)) 30 mg TWICE A DAY PRN RECTAL spasm 01/05/17 10:00 01/12/17 09:59 01/05/17 12:45 Carvedilol (Coreg) 12.5 mg EVERY 12 HOURS ORAL 01/04/17 09:00 02/03/17 08:59 01/07/17 08:41 Dextrose (Dextrose 50%) STAT PRN IV Hypoglycemia 01/04/17 22:30 02/03/17 22:29 Epoetin Tristan (Procrit (for ESRD on dialysis)) 10,000 units WED-WED-WED SUBQ 01/04/17 21:00 02/03/17 20:59 01/04/17 20:21 Hydralazine HCl (Apresoline) 75 mg Q12HR ORAL 01/04/17 09:00 02/03/17 08:59 01/04/17 20:20 Insulin Aspart (NovoLOG) BEFORE MEALS AND HS SUBQ 01/04/17 06:30 02/03/17 06:29 01/08/17 06:40 Irbesartan (Avapro) 300 mg DAILY ORAL 01/04/17 09:00 02/03/17 08:59 01/07/17 08:40 Isosorbide Mononitrate (Imdur) 30 mg DAILY ORAL 01/04/17 09:00 02/03/17 08:59 01/07/17 08:40 Ondansetron HCl (Zofran) 4 mg Q6H PRN IVP Nausea & Vomiting 01/04/17 10:30 02/03/17 10:29 Polyethylene Glycol (Miralax) 17 gm HSPRN PRN ORAL Constipation 01/04/17 22:30 02/03/17 22:29 Pravastatin Sodium (Pravachol) 40 mg BEDTIME ORAL 01/04/17 21:00 02/03/17 20:59 01/07/17 20:13 Tramadol HCl (Ultram) 50 mg Q6H PRN ORAL For Pain 01/04/17 07:45 01/11/17 07:44 01/08/17 14:29 Vitamin B Complex/ Vit C/Folic Acid (Nephrovite) 1 tab DAILY ORAL 01/07/17 12:00 02/06/17 11:59 01/08/17 09:03 Zolpidem Tartrate (Ambien) 5 mg HSPRN PRN ORAL Insomnia 01/04/17 22:30 02/03/17 22:29 Allergies: Coded Allergies: ASPIRIN (Verified Allergy, Mild, 08/15/10) PENICILLINS (Verified Allergy, Mild, 08/15/10) LEBRON INHIBITORS (Unverified Allergy, Unknown, 01/01/17) ACETAMINOPHEN (Unverified Allergy, Unknown, 09/18/15) patient stated CODEINE (Unverified Allergy, Unknown, 01/01/17) PENICILLIN (Verified Allergy, Unknown, 09/17/15) ROS Limited/Unobtainable: No Constitutional: Reports: no symptoms HEENT: Reports: no symptoms Cardiovascular: Reports: no symptoms Respiratory: Reports: no symptoms Gastrointestinal/Abdominal: Reports: no symptoms Genitourinary: Reports: hematuria Neurologic/Psychiatric: Reports: no symptoms Subjective 66 YO F admitted with hematuria. S/P cystoscopy 01/05/17. Cover for Int Med- Dr Wayne. Objective Last Vital Signs Date Time Temp Pulse Resp B/P Pulse Ox O2 Delivery O2 Flow Rate FiO2 01/08/17 12:01 98.4 84 16 128/52 94 Room Air 01/06/17 11:34 21 Laboratory Tests Test 01/08/17 05:25 White Blood Count 10.5 K/UL (4.8-10.8) Red Blood Count 2.41 M/UL (4.20-5.40) L Hemoglobin 7.3 G/DL (12.0-16.0) L Hematocrit 23.3 % (37.0-47.0) L Mean Corpuscular Volume 97 FL (80-99) Mean Corpuscular Hemoglobin 30.5 PG (27.0-31.0) Mean Corpuscular Hemoglobin Concent 31.5 G/DL (32.0-36.0) L Red Cell Distribution Width 19.6 % (11.6-14.8) H Platelet Count 148 K/UL (150-450) L Mean Platelet Volume 8.7 FL (6.5-10.1) Neutrophils (%) (Auto) % (45.0-75.0) Lymphocytes (%) (Auto) % (20.0-45.0) Monocytes (%) (Auto) % (1.0-10.0) Eosinophils (%) (Auto) % (0.0-3.0) Basophils (%) (Auto) % (0.0-2.0) Differential Total Cells Counted 100 Neutrophils % (Manual) 76 % (45-75) H Lymphocytes % (Manual) 16 % (20-45) L Monocytes % (Manual) 3 % (1-10) Eosinophils % (Manual) 1 % (0-3) Basophils % (Manual) 0 % (0-2) Band Neutrophils 4 % (0-8) Platelet Estimate Adequate Platelet Morphology Normal Red Blood Cell Morphology Normal Sodium Level 139 mEQ/L (135-145) Potassium Level 4.0 mEQ/L (3.4-4.9) Chloride Level 95 mEQ/L (98-107) L Carbon Dioxide Level 32 mEQ/L (20-30) H Anion Gap 12 (5-15) Blood Urea Nitrogen 29 mg/dL (7-23) H Creatinine 4.3 mg/dL (0.5-0.9) H Estimat Glomerular Filtration Rate 12.4 mL/min (>60) Glucose Level 113 mg/dL (74-106) H Calcium Level 8.6 mg/dL (8.6-10.2) Magnesium Level 1.9 mg/dL (1.7-2.5) Total Bilirubin 0.3 mg/dL (0.0-1.2) Aspartate Amino Transf (AST/SGOT) 15 U/L (5-40) Alanine Aminotransferase (ALT/SGPT) 5 U/L (3-33) Alkaline Phosphatase 58 U/L (35-104) Total Protein 6.2 g/dL (6.6-8.7) L Albumin 2.5 g/dL (3.5-5.2) L Globulin 3.7 g/dL Albumin/Globulin Ratio 0.6 (1.0-2.7) L Intake and Output 01/07/17 01/08/17 19:00 07:00 Intake Total 760 ml 360 ml Output Total 150 ml 70 ml Balance 610 ml 290 ml Intake Oral 760 ml 360 ml Output Urine Total 150 ml 70 ml Objective General Appearance: moderate distress, cachetic, thin EENT: PERRL/EOMI, normal ENT inspection, TMs normal Neck: non-tender, normal alignment, supple Cardiovascular: normal peripheral pulses, normal rate, regular rhythm, no gallop/murmur, no JVD Respiratory/Chest: chest wall non-tender, lungs clear, normal breath sounds, no respiratory distress, no accessory muscle use Abdomen: normal bowel sounds, non tender, soft, no organomegaly, no mass Extremities: other - Bilateral BKA 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 (2) Dysfunctional uterine bleeding Assessment & Plan: Pelvic exam under anesthesia cancelled-see CELL TUBER HAND note. (3) Severe anemia Assessment & Plan: Type and cross 2 units PRBC. Transfuse 2 units today . (4) Hypokalemia Assessment & Plan: S/P replacement. (5) ESRD on hemodialysis Assessment & Plan: See nephrology note. 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 (12) HTN (hypertension) Assessment & Plan: Cont avapro and hydralazine. (13) Hematuria Assessment & Plan: S/P cystoscopy and clot evacuation on 01/05/17-see urology note. Bladder irrigation q 4 hr Status: not improved Assessment/Plan Discharge planning: NAHOMY PATIÑO Jan 08, 2017 15:38
[2017-01-08 16:00] VITALS: BP 132/68
[2017-01-08 19:52] VITALS: BP 144/64
[2017-01-08] MEDS: Epogen (for ESRD on dialysis) SUBQ SCH (20:45)
[2017-01-09] VITALS: BP 153/67
[2017-01-09] MEDS: traMADol 50mg tab ORAL PRN ×3 (00:41→20:13)
[2017-01-09 04:00] VITALS: BP 144/69
[2017-01-09] MEDS: NovoLOG Insulin Flexpen SUBQ SCH ×4 (06:30→21:04)
[2017-01-09 06:56] LABS: CALCIUM 8.9 mg/dL (8.6-10.2); CREATININE 2.8 mg/dL (0.5-0.9); GLOMERULAR FILTRATION RATE 20.4 mL/min (>60)
[2017-01-09 07:06] LABS: BASOPHILS % (AUTO) 0.6 % (0.0-2.0); EOSINOPHILS % (AUTO) 3.1 % (0.0-3.0); LYMPHOCYTES % (AUTO) 10.8 % (20.0-45.0); MEAN CORPUSCULAR HGB CONC 31.9 G/DL (32.0-36.0); MEAN CORPUSCULAR VOLUME 94 FL (80-99); MEAN PLATELET VOLUME 9.3 FL (6.5-10.1); MONOCYTES % (AUTO) 5.5 % (1.0-10.0); PLATELET COUNT 153 K/UL (150-450); RED BLOOD COUNT 3.59 M/UL (4.20-5.40); RED CELL DISTRIBUTION WIDTH 17.6 % (11.6-14.8); WHITE BLOOD COUNT 11.6 K/UL (4.8-10.8)
[2017-01-09 08:34] VITALS: BP 130/58
[2017-01-09] MEDS: HydrALAZINE 25mg tab ORAL SCH ×2 (09:47→21:05)
[2017-01-09] MEDS: Nephrovite tab ORAL SCH (09:47)
[2017-01-09] MEDS: Irbesartan 150mg tablet ORAL SCH (09:47)
[2017-01-09] MEDS: Imdur 30mg tab ORAL SCH (09:47)
[2017-01-09] MEDS: Carvedilol 12.5mg tab ORAL SCH ×2 (09:48→21:05)
[2017-01-09 11:44] VITALS: BP 143/60
--- NOTE | 2017-01-09 12:10 | Pulmonology Progress Note ---
Assessment/Plan Assessment/Plan ASSESSMENT ESRD , on HD anemia of chronic renal disease s/p blood transfusion hematuria s/p cystoscopy with clot evacuation , bladder biopsy and fulguration on 01/05 hx of CVA with CLINICAL REVIEW NURSE bladder mass, possible bladder Ca HTN protein calorie malnutrition electrolyte imbalance ( severe hypokalemia) PVD bilateral BKA DUB scleroderma PLAN OF CARE MS floor urology follows off bladder irrigation s/p surgery awaiting biopsy results per urologist hematuria likely 2 to a/coagulation and inflammation however HH with trend down today HH stable after additional [address] A/P Heterogeneous masslike increased density within the posterior bladder measuring 6.7 x 3.5 cm. HD as per nephro, monitor renal parameters, lytes urology recommended dc home with Andrew x 5 days continue EPO nutritional support, prealbumin -7 O2 HHN prn PASTE THINNER seen the patient, unable to do pelvic exam and biopsy at the bedside PASTE THINNER initially planned to perform exam under anesthesia, possible dilation and curettage, hysteroscopy, possible biopsies however procedure was cancelled patient does have calcified fibroids, but they are not likely source of bleeding dc planning per PMD case discussed and evaluated by supervising physician Subjective Allergies: Coded Allergies: ASPIRIN (Verified Allergy, Mild, 08/15/10) PENICILLINS (Verified Allergy, Mild, 08/15/10) LEBRON INHIBITORS (Unverified Allergy, Unknown, 01/01/17) ACETAMINOPHEN (Unverified Allergy, Unknown, 09/18/15) patient stated CODEINE (Unverified Allergy, Unknown, 01/01/17) PENICILLIN (Verified Allergy, Unknown, 09/17/15) Subjective HH up after additional 2 u PRBC transfusion mild leukocytosis today, afebrile Objective Last 24 Hour Vital Signs Date Time Temp Pulse Resp B/P Pulse Ox O2 Delivery O2 Flow Rate FiO2 01/09/17 11:44 98.1 84 16 143/60 100 Room Air 01/09/17 09:48 80 130/58 01/09/17 09:47 130/58 01/09/17 09:47 130/58 01/09/17 09:47 130/58 01/09/17 08:34 97.7 80 16 130/58 99 Room Air 01/09/17 06:39 73 18 Room Air 01/09/17 04:00 97.5 81 18 144/69 98 Room Air 01/09/17 00:00 97.9 85 18 153/67 97 Room Air 01/08/17 20:42 144/64 01/08/17 20:42 94 144/64 01/08/17 19:52 98.4 94 18 144/64 98 Room Air 01/08/17 19:12 87 18 Room Air 01/08/17 16:00 97.4 69 16 132/68 100 Room Air Intake and Output 01/08/17 01/09/17 19:00 07:00 Intake Total 620 ml 180 ml Output Total 1800 ml 150 ml Balance -1180 ml 30 ml Intake Oral 500 ml 180 ml Blood Product 120 ml Output Urine Total 100 ml 150 ml Hemodialysis UF 1700 ml Objective General Appearance: no acute distress, other - bedridden, awake, alert, responsive, expressive aphasia HEENT: normocephalic, atraumatic, anicteric, mucous membranes moist Respiratory/Chest: lungs clear, no respiratory distress, no accessory muscle use Cardiovascular: normal peripheral pulses, regular rhythm, no JVD,LUE AV shunt Abdomen: normal bowel sounds, soft, non tender, non distended Extremities: bilateral BKA, left necrotic middle finger Neurologic/Psychiatric: alert, responsive, expresive aphasia , L side weakness Musculoskeletal: atrophy - BLE Laboratory Tests 01/09/17 06:05: White Blood Count 11.6H, Red Blood Count 3.59L, Hemoglobin 10.8#L, Hematocrit 33.7#L, Mean Corpuscular Volume 94, Mean Corpuscular Hemoglobin 30.0, Mean Corpuscular Hemoglobin Concent 31.9L, Red Cell Distribution Width 17.6H, Platelet Count 153, Mean Platelet Volume 9.3, Neutrophils (%) (Auto) 80.0H, Lymphocytes (%) (Auto) 10.8L, Monocytes (%) (Auto) 5.5, Eosinophils (%) (Auto) 3.1H, Basophils (%) (Auto) 0.6, Sodium Level 139, Potassium Level 4.0, Chloride Level 98, Carbon Dioxide Level 28, Anion Gap 13, Blood Urea Nitrogen 29H, Creatinine 2.8H, Estimat Glomerular Filtration Rate 20.4, Glucose Level 127H, Calcium Level 8.9 Current Medications Medications (Trade) Dose Ordered Sig/Angelique Route PRN Reason Start Time Stop Time Status Last Admin Dose Admin Al Hydroxide/Mg Hydroxide (Mylanta II) 30 ml Q6H PRN ORAL dyspepsia 01/04/17 10:30 02/03/17 10:29 Albuterol/ Ipratropium (DuoNeb 0.5-3(2.5)mg/3ml) 3 ml Q6H PRN HHN dyspnea 01/08/17 08:30 01/13/17 08:29 Belladonna Alkaloids/Opium (B & O (15-A)) 30 mg TWICE A DAY PRN RECTAL spasm 01/05/17 10:00 01/12/17 09:59 01/05/17 12:45 Carvedilol (Coreg) 12.5 mg EVERY 12 HOURS ORAL 01/04/17 09:00 02/03/17 08:59 01/09/17 09:48 Dextrose (Dextrose 50%) STAT PRN IV Hypoglycemia 01/04/17 22:30 02/03/17 22:29 Epoetin Tristan (Procrit (for ESRD on dialysis)) 10,000 units WED-WED-WED SUBQ 01/04/17 21:00 02/03/17 20:59 01/08/17 20:45 Hydralazine HCl (Apresoline) 75 mg Q12HR ORAL 01/04/17 09:00 02/03/17 08:59 01/09/17 09:47 Insulin Aspart (NovoLOG) BEFORE MEALS AND HS SUBQ 01/04/17 06:30 02/03/17 06:29 01/09/17 06:30 Irbesartan (Avapro) 300 mg DAILY ORAL 01/04/17 09:00 02/03/17 08:59 01/09/17 09:47 Isosorbide Mononitrate (Imdur) 30 mg DAILY ORAL 01/04/17 09:00 02/03/17 08:59 01/09/17 09:47 Ondansetron HCl (Zofran) 4 mg Q6H PRN IVP Nausea & Vomiting 01/04/17 10:30 02/03/17 10:29 Polyethylene Glycol (Miralax) 17 gm HSPRN PRN ORAL Constipation 01/04/17 22:30 02/03/17 22:29 Pravastatin Sodium (Pravachol) 40 mg BEDTIME ORAL 01/04/17 21:00 02/03/17 20:59 01/08/17 20:42 Tramadol HCl (Ultram) 50 mg Q6H PRN ORAL For Pain 01/04/17 07:45 01/11/17 07:44 01/09/17 10:31 Vitamin B Complex/ Vit C/Folic Acid (Nephrovite) 1 tab DAILY ORAL 01/07/17 12:00 02/06/17 11:59 01/09/17 09:47 Zolpidem Tartrate (Ambien) 5 mg HSPRN PRN ORAL Insomnia 01/04/17 22:30 02/03/17 22:29 [facility] ([facility])Kelsea NP Jan 09, 2017 12:10
--- NOTE | 2017-01-09 15:57 | Internal Med Progress Note ---
Subjective Date of Service: Jan 09, 2017 Physician Name Nahomy Merrill Attending Physician Scotty Wayne MD Current Medications Medications (Trade) Dose Ordered Sig/Angelique Route PRN Reason Start Time Stop Time Status Last Admin Dose Admin Al Hydroxide/Mg Hydroxide (Mylanta II) 30 ml Q6H PRN ORAL dyspepsia 01/04/17 10:30 02/03/17 10:29 Albuterol/ Ipratropium (DuoNeb 0.5-3(2.5)mg/3ml) 3 ml Q6H PRN HHN dyspnea 01/08/17 08:30 01/13/17 08:29 Belladonna Alkaloids/Opium (B & O (15-A)) 30 mg TWICE A DAY PRN RECTAL spasm 01/05/17 10:00 01/12/17 09:59 01/05/17 12:45 Carvedilol (Coreg) 12.5 mg EVERY 12 HOURS ORAL 01/04/17 09:00 02/03/17 08:59 01/09/17 09:48 Dextrose (Dextrose 50%) STAT PRN IV Hypoglycemia 01/04/17 22:30 02/03/17 22:29 Epoetin Tristan (Procrit (for ESRD on dialysis)) 10,000 units WED-WED-WED SUBQ 01/04/17 21:00 02/03/17 20:59 01/08/17 20:45 Hydralazine HCl (Apresoline) 75 mg Q12HR ORAL 01/04/17 09:00 02/03/17 08:59 01/09/17 09:47 Insulin Aspart (NovoLOG) BEFORE MEALS AND HS SUBQ 01/04/17 06:30 02/03/17 06:29 01/09/17 12:20 Irbesartan (Avapro) 300 mg DAILY ORAL 01/04/17 09:00 02/03/17 08:59 01/09/17 09:47 Isosorbide Mononitrate (Imdur) 30 mg DAILY ORAL 01/04/17 09:00 02/03/17 08:59 01/09/17 09:47 Ondansetron HCl (Zofran) 4 mg Q6H PRN IVP Nausea & Vomiting 01/04/17 10:30 02/03/17 10:29 Polyethylene Glycol (Miralax) 17 gm HSPRN PRN ORAL Constipation 01/04/17 22:30 02/03/17 22:29 Pravastatin Sodium (Pravachol) 40 mg BEDTIME ORAL 01/04/17 21:00 02/03/17 20:59 01/08/17 20:42 Tramadol HCl (Ultram) 50 mg Q6H PRN ORAL For Pain 01/04/17 07:45 01/11/17 07:44 01/09/17 10:31 Vitamin B Complex/ Vit C/Folic Acid (Nephrovite) 1 tab DAILY ORAL 01/07/17 12:00 02/06/17 11:59 01/09/17 09:47 Zolpidem Tartrate (Ambien) 5 mg HSPRN PRN ORAL Insomnia 01/04/17 22:30 02/03/17 22:29 Allergies: Coded Allergies: ASPIRIN (Verified Allergy, Mild, 08/15/10) PENICILLINS (Verified Allergy, Mild, 08/15/10) LEBRON INHIBITORS (Unverified Allergy, Unknown, 01/01/17) ACETAMINOPHEN (Unverified Allergy, Unknown, 09/18/15) patient stated CODEINE (Unverified Allergy, Unknown, 01/01/17) PENICILLIN (Verified Allergy, Unknown, 09/17/15) ROS Limited/Unobtainable: No Constitutional: Reports: no symptoms HEENT: Reports: no symptoms Cardiovascular: Reports: no symptoms Respiratory: Reports: no symptoms Gastrointestinal/Abdominal: Reports: no symptoms Genitourinary: Reports: hematuria Neurologic/Psychiatric: Reports: no symptoms Subjective 66 YO F admitted with hematuria. S/P cystoscopy 01/05/17. Continues with gross hematuria. Cover for Int Med-Dr Wayne. Objective Last Vital Signs Date Time Temp Pulse Resp B/P Pulse Ox O2 Delivery O2 Flow Rate FiO2 01/09/17 11:44 98.1 84 16 143/60 100 Room Air 01/06/17 11:34 21 Laboratory Tests Test 01/09/17 06:05 White Blood Count 11.6 K/UL (4.8-10.8) H Red Blood Count 3.59 M/UL (4.20-5.40) L Hemoglobin 10.8 G/DL (12.0-16.0) #L Hematocrit 33.7 % (37.0-47.0) #L Mean Corpuscular Volume 94 FL (80-99) Mean Corpuscular Hemoglobin 30.0 PG (27.0-31.0) Mean Corpuscular Hemoglobin Concent 31.9 G/DL (32.0-36.0) L Red Cell Distribution Width 17.6 % (11.6-14.8) H Platelet Count 153 K/UL (150-450) Mean Platelet Volume 9.3 FL (6.5-10.1) Neutrophils (%) (Auto) 80.0 % (45.0-75.0) H Lymphocytes (%) (Auto) 10.8 % (20.0-45.0) L Monocytes (%) (Auto) 5.5 % (1.0-10.0) Eosinophils (%) (Auto) 3.1 % (0.0-3.0) H Basophils (%) (Auto) 0.6 % (0.0-2.0) Sodium Level 139 mEQ/L (135-145) Potassium Level 4.0 mEQ/L (3.4-4.9) Chloride Level 98 mEQ/L (98-107) Carbon Dioxide Level 28 mEQ/L (20-30) Anion Gap 13 (5-15) Blood Urea Nitrogen 29 mg/dL (7-23) H Creatinine 2.8 mg/dL (0.5-0.9) H Estimat Glomerular Filtration Rate 20.4 mL/min (>60) Glucose Level 127 mg/dL (74-106) H Calcium Level 8.9 mg/dL (8.6-10.2) Intake and Output 01/08/17 01/09/17 19:00 07:00 Intake Total 620 ml 180 ml Output Total 1800 ml 150 ml Balance -1180 ml 30 ml Intake Oral 500 ml 180 ml Blood Product 120 ml Output Urine Total 100 ml 150 ml Hemodialysis UF 1700 ml Objective General Appearance: moderate distress, cachetic, thin EENT: PERRL/EOMI, normal ENT inspection, TMs normal Neck: non-tender, normal alignment, supple Cardiovascular: normal peripheral pulses, normal rate, regular rhythm, no gallop/murmur, no JVD Respiratory/Chest: chest wall non-tender, lungs clear, normal breath sounds, no respiratory distress, no accessory muscle use Abdomen: normal bowel sounds, non tender, soft, no organomegaly, no mass Extremities: other - Bilateral BKA 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 (2) Dysfunctional uterine bleeding Assessment & Plan: Pelvic exam under anesthesia cancelled-see MANAGER OF BUSINESS note. (3) Severe anemia Assessment & Plan: S/P transfusion 4 units PRBC (4) Hypokalemia Assessment & Plan: S/P replacement. (5) ESRD on hemodialysis Assessment & Plan: See nephrology note. 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 (12) HTN (hypertension) Assessment & Plan: Cont avapro and hydralazine. (13) Hematuria Assessment & Plan: S/P cystoscopy and clot evacuation on 01/05/17-see urology note. Bladder irrigation q 4 hr Assessment/Plan Discharge planning: SNF. NAHOMY MERRILL Jan 09, 2017 15:57
[2017-01-09 16:01] VITALS: BP 129/57
--- NOTE | 2017-01-09 16:36 | Urology Progress Note ---
Assessment/Plan Status: stable Assessment/Plan H/H has drifted, although there are no clots. Reviewing chart, no culture noted , patient has not received abx in over 5 days. Recommend re-culturing urine and starting empiric treatment for possible UTI which seems like most likely cause of initial hematuria. Patient was on Plavix till the day before admission , given ESRD already causes platelet dysfunction, expect there to still be plavix effect on current platelets which may explain prolonged hematuria. Cystoscopy on Wednesday revealed irritated bladder wall but no eve tumor and just generalized oozing and bleeding. No focal bleed. 1. Urine culture 2. ceftriaxone 1 gm IV q day 3. re-start CBI for 1 day 4. re-eval urine off CBI tomorrow Subjective Date patient seen: Jan 09, 2017 Time patient seen: 16:33 ROS Limited/Unobtainable: Yes Constitutional: Denies: chills, diaphoresis, fever, malaise, no symptoms, other , weakness HEENT: Denies: blurred vision, double vision, ear discharge, ear pain, eye pain , mouth pain, mouth swelling, no symptoms, nose congestion, nose pain, other, tearing, throat pain, throat swelling Cardiovascular: Denies: chest pain, edema, irregular heart rate, lightheadedness, no symptoms, other, palpitations, syncope Respiratory: Denies: SOB at rest, SOB with excertion, cough, no symptoms, orthopnea, other, shortness of breath, sputum, stridor, wheezing Gastrointestinal/Abdominal: Denies: abdomen distended, abdominal pain, black stools, blood in stool, constipated, diarrhea, difficulty swallowing, nausea, no symptoms, other, poor appetite, poor fluid intake, rectal bleeding, tarry stools, vomiting Genitourinary: Denies: burning, discharge, flank pain, frequency, hematuria, incontinence, no symptoms, other, pain, urgency Neurologic/Psychiatric: Denies: anxiety, depressed, emotional problems, headache, no symptoms, numbness, other, paresthesia, pre-existing deficit, seizure, tingling, tremors, weakness Endocrine: Denies: excessive sweating, flushing, increased hunger, increased thirst, increased urine, intolerance to cold, intolerance to heat, no symptoms, other, unexplained weight gain, unexplained weight loss Hematologic/Lymphatic: Denies: anemia, easy bleeding, easy bruising, no symptoms, other Allergies: Coded Allergies: ASPIRIN (Verified Allergy, Mild, 08/15/10) PENICILLINS (Verified Allergy, Mild, 08/15/10) LEBRON INHIBITORS (Unverified Allergy, Unknown, 01/01/17) ACETAMINOPHEN (Unverified Allergy, Unknown, 09/18/15) patient stated CODEINE (Unverified Allergy, Unknown, 01/01/17) PENICILLIN (Verified Allergy, Unknown, 09/17/15) Subjective resting comfortably, catheter being irrigated routinely with no clots reported Objective Last 24 Hour Vital Signs Date Time Temp Pulse Resp B/P Pulse Ox O2 Delivery O2 Flow Rate FiO2 01/09/17 16:01 98.2 82 16 129/57 95 Room Air 01/09/17 11:44 98.1 84 16 143/60 100 Room Air 01/09/17 09:48 80 130/58 01/09/17 09:47 130/58 01/09/17 09:47 130/58 01/09/17 09:47 130/58 01/09/17 08:34 97.7 80 16 130/58 99 Room Air 01/09/17 06:39 73 18 Room Air 01/09/17 04:00 97.5 81 18 144/69 98 Room Air 01/09/17 00:00 97.9 85 18 153/67 97 Room Air 01/08/17 20:42 144/64 01/08/17 20:42 94 144/64 01/08/17 19:52 98.4 94 18 144/64 98 Room Air 01/08/17 19:12 87 18 Room Air Intake and Output 01/08/17 01/09/17 19:00 07:00 Intake Total 620 ml 180 ml Output Total 1800 ml 150 ml Balance -1180 ml 30 ml Intake Oral 500 ml 180 ml Blood Product 120 ml Output Urine Total 100 ml 150 ml Hemodialysis UF 1700 ml Laboratory Tests 01/09/17 06:05: White Blood Count 11.6H, Red Blood Count 3.59L, Hemoglobin 10.8#L, Hematocrit 33.7#L, Mean Corpuscular Volume 94, Mean Corpuscular Hemoglobin 30.0, Mean Corpuscular Hemoglobin Concent 31.9L, Red Cell Distribution Width 17.6H, Platelet Count 153, Mean Platelet Volume 9.3, Neutrophils (%) (Auto) 80.0H, Lymphocytes (%) (Auto) 10.8L, Monocytes (%) (Auto) 5.5, Eosinophils (%) (Auto) 3.1H, Basophils (%) (Auto) 0.6, Sodium Level 139, Potassium Level 4.0, Chloride Level 98, Carbon Dioxide Level 28, Anion Gap 13, Blood Urea Nitrogen 29H, Creatinine 2.8H, Estimat Glomerular Filtration Rate 20.4, Glucose Level 127H, Calcium Level 8.9 Height (Feet): 4 Height (Inches): 5.00 Weight (Pounds): 99 General Appearance: no apparent distress Genitourinary/Rectal: other - calderón in place, clear red urine in catheter Cheo Dumont M.D. Jan 09, 2017 16:36
[2017-01-09 20:00] VITALS: BP 143/61
[2017-01-09] MEDS: cefTRIAXone 1 GM in D5W 55 ML IVPB SCH (22:34)
--- NOTE | 2017-01-09 23:47 | Cardiology Progress Note ---
Assessment/Plan Assessment/Plan 1. Hypertensive heart disease with normal LVEF, blood pressure within normal limit, continue coreg, hydralazine and irbesartan. 2. ESRD 3. No evidence of cardiac shunting on echocardiography. Subjective Subjective No cardiac events. Not on the tele unit. Objective Last 24 Hour Vital Signs Date Time Temp Pulse Resp B/P Pulse Ox O2 Delivery O2 Flow Rate FiO2 01/09/17 21:12 98.2 01/09/17 21:05 129/57 01/09/17 21:05 82 129/57 01/09/17 20:00 97.9 93 18 143/61 98 Room Air 01/09/17 19:30 82 20 Room Air 21 01/09/17 16:01 98.2 82 16 129/57 95 Room Air 01/09/17 11:44 98.1 84 16 143/60 100 Room Air 01/09/17 09:48 80 130/58 01/09/17 09:47 130/58 01/09/17 09:47 130/58 01/09/17 09:47 130/58 01/09/17 08:34 97.7 80 16 130/58 99 Room Air 01/09/17 06:39 73 18 Room Air 01/09/17 04:00 97.5 81 18 144/69 98 Room Air 01/09/17 00:00 97.9 85 18 153/67 97 Room Air Intake and Output 01/08/17 01/09/17 19:00 07:00 Intake Total 620 ml 180 ml Output Total 1800 ml 150 ml Balance -1180 ml 30 ml Intake Oral 500 ml 180 ml Blood Product 120 ml Output Urine Total 100 ml 150 ml Hemodialysis UF 1700 ml 2D Echo: EF 55%, sev LVH, LAE, grade I lVDD Laboratory Tests Test 01/09/17 06:05 White Blood Count 11.6 K/UL (4.8-10.8) H Red Blood Count 3.59 M/UL (4.20-5.40) L Hemoglobin 10.8 G/DL (12.0-16.0) #L Hematocrit 33.7 % (37.0-47.0) #L Mean Corpuscular Volume 94 FL (80-99) Mean Corpuscular Hemoglobin 30.0 PG (27.0-31.0) Mean Corpuscular Hemoglobin Concent 31.9 G/DL (32.0-36.0) L Red Cell Distribution Width 17.6 % (11.6-14.8) H Platelet Count 153 K/UL (150-450) Mean Platelet Volume 9.3 FL (6.5-10.1) Neutrophils (%) (Auto) 80.0 % (45.0-75.0) H Lymphocytes (%) (Auto) 10.8 % (20.0-45.0) L Monocytes (%) (Auto) 5.5 % (1.0-10.0) Eosinophils (%) (Auto) 3.1 % (0.0-3.0) H Basophils (%) (Auto) 0.6 % (0.0-2.0) Sodium Level 139 mEQ/L (135-145) Potassium Level 4.0 mEQ/L (3.4-4.9) Chloride Level 98 mEQ/L (98-107) Carbon Dioxide Level 28 mEQ/L (20-30) Anion Gap 13 (5-15) Blood Urea Nitrogen 29 mg/dL (7-23) H Creatinine 2.8 mg/dL (0.5-0.9) H Estimat Glomerular Filtration Rate 20.4 mL/min (>60) Glucose Level 127 mg/dL (74-106) H Calcium Level 8.9 mg/dL (8.6-10.2) Objective HEENT: Eyes, pupils are equal and responsive to light and accommodation. Extraocular movements are intact. NECK: No JVD, no carotid bruit, carotid upstroke 2+ B/L CHEST: Lungs are clear to auscultation CARDIOVASCULAR: Regular rhythm and rate. S1 and S2 normal without murmurs, rubs, gallops. ABDOMEN: Soft, nontender, and nondistended. Positive bowel sounds. No hepatosplenomegaly, no rebound or guarding noted. EXTREMITIES: The patient had a bilateral [id number] amputation. Otherwise, without clubbing, cyanosis or edema. DONAVAN BLANCAS Jan 09, 2017 23:47
[2017-01-10] VITALS: BP 135/64
[2017-01-10 04:00] VITALS: BP 148/69
[2017-01-10] MEDS: NovoLOG Insulin Flexpen SUBQ SCH ×4 (06:00→21:07)
[2017-01-10 07:42] LABS: BASOPHILS % (AUTO) 0.7 % (0.0-2.0); EOSINOPHILS % (AUTO) 2.3 % (0.0-3.0); LYMPHOCYTES % (AUTO) 10.6 % (20.0-45.0); MEAN CORPUSCULAR HEMOGLOBIN 30.1 PG (27.0-31.0); MEAN CORPUSCULAR HGB CONC 31.7 G/DL (32.0-36.0); MEAN CORPUSCULAR VOLUME 95 FL (80-99); MEAN PLATELET VOLUME 8.8 FL (6.5-10.1); MONOCYTES % (AUTO) 5.3 % (1.0-10.0); NEUTROPHILS % (AUTO) 81.2 % (45.0-75.0); PLATELET COUNT 159 K/UL (150-450); RED BLOOD COUNT 3.51 M/UL (4.20-5.40); RED CELL DISTRIBUTION WIDTH 17.5 % (11.6-14.8); WHITE BLOOD COUNT 13.1 K/UL (4.8-10.8)
[2017-01-10 08:06] LABS: CALCIUM 8.9 mg/dL (8.6-10.2); CREATININE 4.1 mg/dL (0.5-0.9); GLOMERULAR FILTRATION RATE 13.1 mL/min (>60); POTASSIUM 4.3 mEQ/L (3.4-4.9)
[2017-01-10 08:16] VITALS: BP 132/53
[2017-01-10] MEDS ORDERED: Tubing IV Blood Pump IV ONE (08:58)
[2017-01-10] MEDS ORDERED: NS 550ML IV ONE (08:58)
[2017-01-10] MEDS ORDERED: Tubing IV Secondary IV ONE (08:58)
[2017-01-10] MEDS ORDERED: NS 275ml ONE (08:58)
[2017-01-10] MEDS: Irbesartan 150mg tablet ORAL SCH (09:35)
[2017-01-10] MEDS: Nephrovite tab ORAL SCH (09:35)
[2017-01-10] MEDS: Imdur 30mg tab ORAL SCH (09:35)
[2017-01-10] MEDS: HydrALAZINE 25mg tab ORAL SCH ×2 (09:36→21:06)
[2017-01-10] MEDS: Carvedilol 12.5mg tab ORAL SCH ×2 (09:36→21:06)
[2017-01-10 11:53] VITALS: BP 140/62
--- NOTE | 2017-01-10 13:05 | Pulmonology Progress Note ---
Assessment/Plan Assessment/Plan ASSESSMENT ESRD , on HD anemia of chronic renal disease s/p blood transfusion hematuria s/p cystoscopy with clot evacuation , bladder biopsy and fulguration on 01/05 hx of CVA with [employer]NA[employer] bladder mass, possible bladder Ca HTN protein calorie malnutrition electrolyte imbalance ( severe hypokalemia) PVD bilateral BKA DUB scleroderma PLAN OF CARE [facility] floor urology follows urologist reevaluated 01/09 , on CBI x 24 hrs, stopped this am Urine culture pending ( preliminary negative) started on ceftriaxone 1 gm IV q day HH remains stable, but leukocytosis with trend up urine in Andrew , off CBI now, no output after CBI out s/p cystoscopy awaiting biopsy results per urologist hematuria likely 2 to a/coagulation and inflammation however HH with trend down today HH stable after additional [address] A/P Heterogeneous masslike increased density within the posterior bladder measuring 6.7 x 3.5 cm. HD as per nephro, monitor renal parameters, lytes urology recommended dc home with Andrew x 5 days continue EPO nutritional support, prealbumin -7 O2 HHN prn BIOMASS FACILITATOR seen the patient, unable to do pelvic exam and biopsy at the bedside BIOMASS FACILITATOR initially planned to perform exam under anesthesia, possible dilation and curettage, hysteroscopy, possible biopsies however procedure was cancelled patient does have calcified fibroids, but they are not likely source of bleeding dc planning per PMD case discussed and evaluated by supervising physician Subjective Allergies: Coded Allergies: ASPIRIN (Verified Allergy, Mild, 08/15/10) PENICILLINS (Verified Allergy, Mild, 08/15/10) LEBRON INHIBITORS (Unverified Allergy, Unknown, 01/01/17) ACETAMINOPHEN (Unverified Allergy, Unknown, 09/18/15) patient stated CODEINE (Unverified Allergy, Unknown, 01/01/17) PENICILLIN (Verified Allergy, Unknown, 09/17/15) Subjective HH up after additional 2 u PRBC transfusion leukocytosis with trend up today, afebrile urologist seen the patient 01/09 restarted on CBI Objective Last 24 Hour Vital Signs Date Time Temp Pulse Resp B/P Pulse Ox O2 Delivery O2 Flow Rate FiO2 01/10/17 11:53 97.0 80 14 140/62 99 Room Air 01/10/17 09:36 132/53 01/10/17 09:36 84 132/53 01/10/17 09:35 132/53 01/10/17 09:35 132/53 01/10/17 08:32 80 20 Room Air 21 01/10/17 08:16 97.9 84 16 132/53 99 Room Air 01/10/17 04:00 97.7 80 18 148/69 98 Room Air 01/10/17 00:00 97.9 80 18 135/64 97 Room Air 01/09/17 21:12 98.2 01/09/17 21:05 129/57 01/09/17 21:05 82 129/57 01/09/17 20:00 97.9 93 18 143/61 98 Room Air 01/09/17 19:30 82 20 Room Air 21 01/09/17 16:01 98.2 82 16 129/57 95 Room Air Intake and Output 01/09/17 01/10/17 19:00 07:00 Intake Total 1300 ml 155 ml Output Total 200 ml 1500 ml Balance 1100 ml -1345 ml Intake Oral 1300 ml 100 ml IV Total 55 ml Output Urine Total 200 ml 1500 ml Objective General Appearance: no acute distress, other - bedridden, awake, alert, responsive, expressive aphasia HEENT: normocephalic, atraumatic, anicteric, mucous membranes moist Respiratory/Chest: lungs clear, no respiratory distress, no accessory muscle use Cardiovascular: normal peripheral pulses, regular rhythm, no JVD,LUE AV shunt Abdomen: normal bowel sounds, soft, non tender, non distended Extremities: bilateral BKA, left necrotic middle finger Neurologic/Psychiatric: alert, responsive, expresive aphasia , L side weakness Musculoskeletal: atrophy - BLE Microbiology Date/Time Source Procedure Growth Status 01/09/17 21:38 Indwelling Cath Urine Culture - Preliminary NO GROWTH Resulted Laboratory Tests 01/10/17 06:22: White Blood Count 13.1H, Red Blood Count 3.51L, Hemoglobin 10.6L, Hematocrit 33.3L, Mean Corpuscular Volume 95, Mean Corpuscular Hemoglobin 30.1, Mean Corpuscular Hemoglobin Concent 31.7L, Red Cell Distribution Width 17.5H, Platelet Count 159, Mean Platelet Volume 8.8, Neutrophils (%) (Auto) 81.2H, Lymphocytes (%) (Auto) 10.6L, Monocytes (%) (Auto) 5.3, Eosinophils (%) (Auto) 2.3, Basophils (%) (Auto) 0.7, Sodium Level 138, Potassium Level 4.3, Chloride Level 97L, Carbon Dioxide Level 26, Anion Gap 15, Blood Urea Nitrogen 56#H, Creatinine 4.1H, Estimat Glomerular Filtration Rate 13.1, Glucose Level 147H, Calcium Level 8.9 Current Medications Medications (Trade) Dose Ordered Sig/Angelique Route PRN Reason Start Time Stop Time Status Last Admin Dose Admin Al Hydroxide/Mg Hydroxide (Mylanta II) 30 ml Q6H PRN ORAL dyspepsia 01/04/17 10:30 02/03/17 10:29 Albuterol/ Ipratropium 3 ml 3 ml Q6H PRN HHN dyspnea 01/08/17 08:30 01/13/17 08:29 Belladonna Alkaloids/Opium (B & O (15-A)) 30 mg TWICE A DAY PRN RECTAL spasm 01/05/17 10:00 01/12/17 09:59 01/05/17 12:45 Carvedilol (Coreg) 12.5 mg EVERY 12 HOURS ORAL 01/04/17 09:00 02/03/17 08:59 01/10/17 09:36 Ceftriaxone Sodium/Dextrose (Rocephin/D5W) 55 ml @ 110 mls/hr Q24H IVPB 01/09/17 18:00 01/16/17 17:59 01/09/17 22:34 Dextrose (Dextrose 50%) STAT PRN IV Hypoglycemia 01/04/17 22:30 02/03/17 22:29 Epoetin Tristan (Procrit (for ESRD on dialysis)) 10,000 units WED-WED-WED SUBQ 01/04/17 21:00 02/03/17 20:59 01/08/17 20:45 Hydralazine HCl (Apresoline) 75 mg Q12HR ORAL 01/04/17 09:00 02/03/17 08:59 01/10/17 09:36 Insulin Aspart (NovoLOG) BEFORE MEALS AND HS SUBQ 01/04/17 06:30 02/03/17 06:29 01/10/17 12:07 Irbesartan (Avapro) 300 mg DAILY ORAL 01/04/17 09:00 02/03/17 08:59 01/10/17 09:35 Isosorbide Mononitrate (Imdur) 30 mg DAILY ORAL 01/04/17 09:00 02/03/17 08:59 01/10/17 09:35 Ondansetron HCl (Zofran) 4 mg Q6H PRN IVP Nausea & Vomiting 01/04/17 10:30 02/03/17 10:29 Polyethylene Glycol (Miralax) 17 gm HSPRN PRN ORAL Constipation 01/04/17 22:30 02/03/17 22:29 Pravastatin Sodium (Pravachol) 40 mg BEDTIME ORAL 01/04/17 21:00 02/03/17 20:59 01/09/17 21:05 Tramadol HCl (Ultram) 50 mg Q6H PRN ORAL For Pain 01/04/17 07:45 01/11/17 07:44 01/09/17 20:13 Vitamin B Complex/ Vit C/Folic Acid (Nephrovite) 1 tab DAILY ORAL 01/07/17 12:00 02/06/17 11:59 01/10/17 09:35 Zolpidem Tartrate (Ambien) 5 mg HSPRN PRN ORAL Insomnia 01/04/17 22:30 02/03/17 22:29 [facility] ([facility])Kelsea NP Jan 10, 2017 13:05
--- NOTE | 2017-01-10 15:10 | Internal Med Progress Note ---
Subjective Date of Service: Jan 10, 2017 Physician Name Nahomy Merrill Attending Physician Scotty Wayne MD Current Medications Medications (Trade) Dose Ordered Sig/Angelique Route PRN Reason Start Time Stop Time Status Last Admin Dose Admin Al Hydroxide/Mg Hydroxide (Mylanta II) 30 ml Q6H PRN ORAL dyspepsia 01/04/17 10:30 02/03/17 10:29 Albuterol/ Ipratropium 3 ml 3 ml Q6H PRN HHN dyspnea 01/08/17 08:30 01/13/17 08:29 Belladonna Alkaloids/Opium (B & O (15-A)) 30 mg TWICE A DAY PRN RECTAL spasm 01/05/17 10:00 01/12/17 09:59 01/05/17 12:45 Carvedilol (Coreg) 12.5 mg EVERY 12 HOURS ORAL 01/04/17 09:00 02/03/17 08:59 01/10/17 09:36 Ceftriaxone Sodium/Dextrose (Rocephin/D5W) 55 ml @ 110 mls/hr Q24H IVPB 01/09/17 18:00 01/16/17 17:59 01/09/17 22:34 Dextrose (Dextrose 50%) STAT PRN IV Hypoglycemia 01/04/17 22:30 02/03/17 22:29 Epoetin Tristan (Procrit (for ESRD on dialysis)) 10,000 units WED-WED-WED SUBQ 01/04/17 21:00 02/03/17 20:59 01/08/17 20:45 Hydralazine HCl (Apresoline) 75 mg Q12HR ORAL 01/04/17 09:00 02/03/17 08:59 01/10/17 09:36 Insulin Aspart (NovoLOG) BEFORE MEALS AND HS SUBQ 01/04/17 06:30 02/03/17 06:29 01/10/17 12:07 Irbesartan (Avapro) 300 mg DAILY ORAL 01/04/17 09:00 02/03/17 08:59 01/10/17 09:35 Isosorbide Mononitrate (Imdur) 30 mg DAILY ORAL 01/04/17 09:00 02/03/17 08:59 01/10/17 09:35 Ondansetron HCl (Zofran) 4 mg Q6H PRN IVP Nausea & Vomiting 01/04/17 10:30 02/03/17 10:29 Polyethylene Glycol (Miralax) 17 gm HSPRN PRN ORAL Constipation 01/04/17 22:30 02/03/17 22:29 Pravastatin Sodium (Pravachol) 40 mg BEDTIME ORAL 01/04/17 21:00 02/03/17 20:59 01/09/17 21:05 Tramadol HCl (Ultram) 50 mg Q6H PRN ORAL For Pain 01/04/17 07:45 01/11/17 07:44 01/09/17 20:13 Vitamin B Complex/ Vit C/Folic Acid (Nephrovite) 1 tab DAILY ORAL 01/07/17 12:00 02/06/17 11:59 01/10/17 09:35 Zolpidem Tartrate (Ambien) 5 mg HSPRN PRN ORAL Insomnia 01/04/17 22:30 02/03/17 22:29 Allergies: Coded Allergies: ASPIRIN (Verified Allergy, Mild, 08/15/10) PENICILLINS (Verified Allergy, Mild, 08/15/10) LEBRON INHIBITORS (Unverified Allergy, Unknown, 01/01/17) ACETAMINOPHEN (Unverified Allergy, Unknown, 09/18/15) patient stated CODEINE (Unverified Allergy, Unknown, 01/01/17) PENICILLIN (Verified Allergy, Unknown, 09/17/15) ROS Limited/Unobtainable: No Constitutional: Reports: no symptoms HEENT: Reports: no symptoms Cardiovascular: Reports: no symptoms Respiratory: Reports: no symptoms Gastrointestinal/Abdominal: Reports: no symptoms Genitourinary: Reports: hematuria Neurologic/Psychiatric: Reports: no symptoms Subjective 66 YO F admitted with hematuria. S/P cystoscopy 01/05/17. Continues with gross hematuria. Cover for Int Jl-Dr Wayne. Objective Last Vital Signs Date Time Temp Pulse Resp B/P Pulse Ox O2 Delivery O2 Flow Rate FiO2 01/10/17 11:53 97.0 80 14 140/62 99 Room Air 01/10/17 08:32 21 Laboratory Tests Test 01/10/17 06:22 White Blood Count 13.1 K/UL (4.8-10.8) H Red Blood Count 3.51 M/UL (4.20-5.40) L Hemoglobin 10.6 G/DL (12.0-16.0) L Hematocrit 33.3 % (37.0-47.0) L Mean Corpuscular Volume 95 FL (80-99) Mean Corpuscular Hemoglobin 30.1 PG (27.0-31.0) Mean Corpuscular Hemoglobin Concent 31.7 G/DL (32.0-36.0) L Red Cell Distribution Width 17.5 % (11.6-14.8) H Platelet Count 159 K/UL (150-450) Mean Platelet Volume 8.8 FL (6.5-10.1) Neutrophils (%) (Auto) 81.2 % (45.0-75.0) H Lymphocytes (%) (Auto) 10.6 % (20.0-45.0) L Monocytes (%) (Auto) 5.3 % (1.0-10.0) Eosinophils (%) (Auto) 2.3 % (0.0-3.0) Basophils (%) (Auto) 0.7 % (0.0-2.0) Sodium Level 138 mEQ/L (135-145) Potassium Level 4.3 mEQ/L (3.4-4.9) Chloride Level 97 mEQ/L (98-107) L Carbon Dioxide Level 26 mEQ/L (20-30) Anion Gap 15 (5-15) Blood Urea Nitrogen 56 mg/dL (7-23) #H Creatinine 4.1 mg/dL (0.5-0.9) H Estimat Glomerular Filtration Rate 13.1 mL/min (>60) Glucose Level 147 mg/dL (74-106) H Calcium Level 8.9 mg/dL (8.6-10.2) Microbiology Date/Time Source Procedure Growth Status 01/09/17 21:38 Indwelling Cath Urine Culture - Preliminary NO GROWTH Resulted Intake and Output 01/09/17 01/10/17 19:00 07:00 Intake Total 1300 ml 155 ml Output Total 200 ml 1500 ml Balance 1100 ml -1345 ml Intake Oral 1300 ml 100 ml IV Total 55 ml Output Urine Total 200 ml 1500 ml Objective General Appearance: moderate distress, cachetic, thin EENT: PERRL/EOMI, normal ENT inspection, TMs normal Neck: non-tender, normal alignment, supple Cardiovascular: normal peripheral pulses, normal rate, regular rhythm, no gallop/murmur, no JVD Respiratory/Chest: chest wall non-tender, lungs clear, normal breath sounds, no respiratory distress, no accessory muscle use Abdomen: normal bowel sounds, non tender, soft, no organomegaly, no mass Extremities: other - Bilateral BKA Neurologic: call worker person II-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 (2) Dysfunctional uterine bleeding Assessment & Plan: Pelvic exam under anesthesia cancelled-see [employer] note. (3) Severe anemia Assessment & Plan: S/P transfusion 4 units PRBC (4) Hypokalemia Assessment & Plan: S/P replacement. (5) ESRD on hemodialysis Assessment & Plan: See nephrology note. 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 (12) HTN (hypertension) Assessment & Plan: Cont avapro and hydralazine. (13) Hematuria Assessment & Plan: S/P cystoscopy and clot evacuation on 01/05/17-see urology note. Bladder irrigation q 4 hr Assessment/Plan Discharge planning: SNF. NAHOMY MERRILL Jan 10, 2017 15:10
--- NOTE | 2017-01-10 15:49 | Urology Progress Note ---
Assessment/Plan Status: stable Assessment/Plan H/H stable. urine significantly improved. Hopefully plavix effect is wearing off. Continue monitoring OFF irrigation 1. f/u urine culture 2. q4 hour bladder irrigation with manual flush 3. if culture negative, urine light pink, h/h stable, ok for discharge. Subjective Date patient seen: Jan 10, 2017 Time patient seen: 15:46 ROS Limited/Unobtainable: Yes Constitutional: Denies: chills, diaphoresis, fever, malaise, no symptoms, other , weakness HEENT: Denies: blurred vision, double vision, ear discharge, ear pain, eye pain , mouth pain, mouth swelling, no symptoms, nose congestion, nose pain, other, tearing, throat pain, throat swelling Cardiovascular: Denies: chest pain, edema, irregular heart rate, lightheadedness, no symptoms, other, palpitations, syncope Respiratory: Denies: SOB at rest, SOB with excertion, cough, no symptoms, orthopnea, other, shortness of breath, sputum, stridor, wheezing Gastrointestinal/Abdominal: Denies: abdomen distended, abdominal pain, black stools, blood in stool, constipated, diarrhea, difficulty swallowing, nausea, no symptoms, other, poor appetite, poor fluid intake, rectal bleeding, tarry stools, vomiting Genitourinary: Denies: burning, discharge, flank pain, frequency, hematuria, incontinence, no symptoms, other, pain, urgency Neurologic/Psychiatric: Denies: anxiety, depressed, emotional problems, headache, no symptoms, numbness, other, paresthesia, pre-existing deficit, seizure, tingling, tremors, weakness Endocrine: Denies: excessive sweating, flushing, increased hunger, increased thirst, increased urine, intolerance to cold, intolerance to heat, no symptoms, other, unexplained weight gain, unexplained weight loss Hematologic/Lymphatic: Denies: anemia, easy bleeding, easy bruising, no symptoms, other Allergies: Coded Allergies: ASPIRIN (Verified Allergy, Mild, 08/15/10) PENICILLINS (Verified Allergy, Mild, 08/15/10) LEBRON INHIBITORS (Unverified Allergy, Unknown, 01/01/17) ACETAMINOPHEN (Unverified Allergy, Unknown, 09/18/15) patient stated CODEINE (Unverified Allergy, Unknown, 01/01/17) PENICILLIN (Verified Allergy, Unknown, 09/17/15) Subjective Did well with CBI. no complaints from patient or nurse Objective Last 24 Hour Vital Signs Date Time Temp Pulse Resp B/P Pulse Ox O2 Delivery O2 Flow Rate FiO2 01/10/17 11:53 97.0 80 14 140/62 99 Room Air 01/10/17 09:36 132/53 01/10/17 09:36 84 132/53 01/10/17 09:35 132/53 01/10/17 09:35 132/53 01/10/17 08:32 80 20 Room Air 21 01/10/17 08:16 97.9 84 16 132/53 99 Room Air 01/10/17 04:00 97.7 80 18 148/69 98 Room Air 01/10/17 00:00 97.9 80 18 135/64 97 Room Air 01/09/17 21:12 98.2 01/09/17 21:05 129/57 01/09/17 21:05 82 129/57 01/09/17 20:00 97.9 93 18 143/61 98 Room Air 01/09/17 19:30 82 20 Room Air 21 01/09/17 16:01 98.2 82 16 129/57 95 Room Air Intake and Output 01/09/17 01/10/17 19:00 07:00 Intake Total 1300 ml 155 ml Output Total 200 ml 1500 ml Balance 1100 ml -1345 ml Intake Oral 1300 ml 100 ml IV Total 55 ml Output Urine Total 200 ml 1500 ml Laboratory Tests 01/10/17 06:22: White Blood Count 13.1H, Red Blood Count 3.51L, Hemoglobin 10.6L, Hematocrit 33.3L, Mean Corpuscular Volume 95, Mean Corpuscular Hemoglobin 30.1, Mean Corpuscular Hemoglobin Concent 31.7L, Red Cell Distribution Width 17.5H, Platelet Count 159, Mean Platelet Volume 8.8, Neutrophils (%) (Auto) 81.2H, Lymphocytes (%) (Auto) 10.6L, Monocytes (%) (Auto) 5.3, Eosinophils (%) (Auto) 2.3, Basophils (%) (Auto) 0.7, Sodium Level 138, Potassium Level 4.3, Chloride Level 97L, Carbon Dioxide Level 26, Anion Gap 15, Blood Urea Nitrogen 56#H, Creatinine 4.1H, Estimat Glomerular Filtration Rate 13.1, Glucose Level 147H, Calcium Level 8.9 Height (Feet): 4 Height (Inches): 5.00 Weight (Pounds): 99 General Appearance: no apparent distress Genitourinary/Rectal: other - calderón with light pink (significant improvement) urine Cheo Dumont M.D. Jan 10, 2017 15:49
[2017-01-10 16:00] VITALS: BP 133/57
[2017-01-10] MEDS: cefTRIAXone 1 GM in D5W 55 ML IVPB SCH (17:22)
[2017-01-10 19:00] VITALS: BP 125/62
[2017-01-10] MEDS: traMADol 50mg tab ORAL PRN (21:06)
--- NOTE | 2017-01-10 23:56 | Cardiology Progress Note ---
Assessment/Plan Assessment/Plan 1. Hypertensive heart disease with normal LVEF, blood pressure within normal limit, continue coreg, hydralazine and irbesartan. 2. ESRD 3. No evidence of cardiac shunting on echocardiography. 4. s/p cystoscopy and evacuation of blood clots. 5. Anemia, s/p blood transfusion. Subjective Subjective No cardiac events. Objective Last 24 Hour Vital Signs Date Time Temp Pulse Resp B/P Pulse Ox O2 Delivery O2 Flow Rate FiO2 01/10/17 22:05 98.0 01/10/17 21:06 125/62 01/10/17 21:06 80 125/62 01/10/17 20:07 80 20 Room Air 21 01/10/17 19:00 98.0 81 18 125/62 Room Air 01/10/17 16:00 97.9 76 18 133/57 98 Room Air 01/10/17 11:53 97.0 80 14 140/62 99 Room Air 01/10/17 09:36 132/53 01/10/17 09:36 84 132/53 01/10/17 09:35 132/53 01/10/17 09:35 132/53 01/10/17 08:32 80 20 Room Air 21 01/10/17 08:16 97.9 84 16 132/53 99 Room Air 01/10/17 04:00 97.7 80 18 148/69 98 Room Air 01/10/17 00:00 97.9 80 18 135/64 97 Room Air Intake and Output 01/09/17 01/10/17 19:00 07:00 Intake Total 1300 ml 155 ml Output Total 200 ml 1500 ml Balance 1100 ml -1345 ml Intake Oral 1300 ml 100 ml IV Total 55 ml Output Urine Total 200 ml 1500 ml 2D Echo: EF 55%, sev LVH, LAE, grade I lVDD Laboratory Tests Test 01/10/17 06:22 White Blood Count 13.1 K/UL (4.8-10.8) H Red Blood Count 3.51 M/UL (4.20-5.40) L Hemoglobin 10.6 G/DL (12.0-16.0) L Hematocrit 33.3 % (37.0-47.0) L Mean Corpuscular Volume 95 FL (80-99) Mean Corpuscular Hemoglobin 30.1 PG (27.0-31.0) Mean Corpuscular Hemoglobin Concent 31.7 G/DL (32.0-36.0) L Red Cell Distribution Width 17.5 % (11.6-14.8) H Platelet Count 159 K/UL (150-450) Mean Platelet Volume 8.8 FL (6.5-10.1) Neutrophils (%) (Auto) 81.2 % (45.0-75.0) H Lymphocytes (%) (Auto) 10.6 % (20.0-45.0) L Monocytes (%) (Auto) 5.3 % (1.0-10.0) Eosinophils (%) (Auto) 2.3 % (0.0-3.0) Basophils (%) (Auto) 0.7 % (0.0-2.0) Sodium Level 138 mEQ/L (135-145) Potassium Level 4.3 mEQ/L (3.4-4.9) Chloride Level 97 mEQ/L (98-107) L Carbon Dioxide Level 26 mEQ/L (20-30) Anion Gap 15 (5-15) Blood Urea Nitrogen 56 mg/dL (7-23) #H Creatinine 4.1 mg/dL (0.5-0.9) H Estimat Glomerular Filtration Rate 13.1 mL/min (>60) Glucose Level 147 mg/dL (74-106) H Calcium Level 8.9 mg/dL (8.6-10.2) Microbiology Date/Time Source Procedure Growth Status 01/09/17 21:38 Indwelling Cath Urine Culture - Preliminary NO GROWTH Resulted Objective HEENT: Eyes, pupils are equal and responsive to light and accommodation. Extraocular movements are intact. NECK: No JVD, no carotid bruit, carotid upstroke 2+ B/L CHEST: Lungs are clear to auscultation CARDIOVASCULAR: Regular rhythm and rate. S1 and S2 normal without murmurs, rubs, gallops. ABDOMEN: Soft, nontender, and nondistended. Positive bowel sounds. No hepatosplenomegaly, no rebound or guarding noted. EXTREMITIES: The patient had a bilateral [id number] amputation. Otherwise, without clubbing, cyanosis or edema. DONAVAN BLANCAS Jan 10, 2017 23:55
[2017-01-11 00:38] VITALS: BP 135/60
[2017-01-11 04:00] VITALS: BP 143/66
[2017-01-11] MEDS: NovoLOG Insulin Flexpen SUBQ SCH ×4 (06:22→21:15)
[2017-01-11 06:59] LABS: BASOPHILS % (AUTO) 0.5 % (0.0-2.0); EOSINOPHILS % (AUTO) 2.9 % (0.0-3.0); LYMPHOCYTES % (AUTO) 12.8 % (20.0-45.0); MEAN CORPUSCULAR HEMOGLOBIN 29.8 PG (27.0-31.0); MEAN CORPUSCULAR HGB CONC 31.4 G/DL (32.0-36.0); MEAN CORPUSCULAR VOLUME 95 FL (80-99); MEAN PLATELET VOLUME 8.8 FL (6.5-10.1); MONOCYTES % (AUTO) 5.2 % (1.0-10.0); NEUTROPHILS % (AUTO) 78.6 % (45.0-75.0); PLATELET COUNT 160 K/UL (150-450); RED BLOOD COUNT 3.29 M/UL (4.20-5.40); RED CELL DISTRIBUTION WIDTH 17.1 % (11.6-14.8); WHITE BLOOD COUNT 11.5 K/UL (4.8-10.8)
[2017-01-11 07:09] LABS: CREATININE 4.9 mg/dL (0.5-0.9); GLOMERULAR FILTRATION RATE 10.7 mL/min (>60); POTASSIUM 4.5 mEQ/L (3.4-4.9)
[2017-01-11 08:00] VITALS: BP 126/54
[2017-01-11] MEDS: Carvedilol 12.5mg tab ORAL SCH ×2 (09:00→21:00)
[2017-01-11] MEDS: Irbesartan 150mg tablet ORAL SCH (09:00)
[2017-01-11] MEDS: Imdur 30mg tab ORAL SCH (09:00)
[2017-01-11] MEDS: HydrALAZINE 25mg tab ORAL SCH ×2 (09:00→21:00)
[2017-01-11] MEDS: Nephrovite tab ORAL SCH (09:17)
[2017-01-11 12:00] VITALS: BP 144/61
--- NOTE | 2017-01-11 12:27 | Internal Med Progress Note ---
Subjective Date of Service: Jan 11, 2017 Physician Name Merrill,Nahomy Attending Physician Scotty Wayne MD Current Medications Medications (Trade) Dose Ordered Sig/Angelique Route PRN Reason Start Time Stop Time Status Last Admin Dose Admin Al Hydroxide/Mg Hydroxide (Mylanta II) 30 ml Q6H PRN ORAL dyspepsia 01/04/17 10:30 02/03/17 10:29 Albuterol/ Ipratropium 3 ml 3 ml Q6H PRN HHN dyspnea 01/08/17 08:30 01/13/17 08:29 Belladonna Alkaloids/Opium (B & O (15-A)) 30 mg TWICE A DAY PRN RECTAL spasm 01/05/17 10:00 01/12/17 09:59 01/05/17 12:45 Carvedilol (Coreg) 12.5 mg EVERY 12 HOURS ORAL 01/04/17 09:00 02/03/17 08:59 01/10/17 21:06 Ceftriaxone Sodium/Dextrose (Rocephin/D5W) 55 ml @ 110 mls/hr Q24H IVPB 01/09/17 18:00 01/16/17 17:59 01/10/17 17:22 Dextrose (Dextrose 50%) STAT PRN IV Hypoglycemia 01/04/17 22:30 02/03/17 22:29 Epoetin Tristan (Procrit (for ESRD on dialysis)) 10,000 units WED-WED-WED SUBQ 01/04/17 21:00 02/03/17 20:59 01/08/17 20:45 Hydralazine HCl (Apresoline) 75 mg Q12HR ORAL 01/04/17 09:00 02/03/17 08:59 01/10/17 21:06 Insulin Aspart (NovoLOG) BEFORE MEALS AND HS SUBQ 01/04/17 06:30 02/03/17 06:29 01/11/17 11:47 Irbesartan (Avapro) 300 mg DAILY ORAL 01/04/17 09:00 02/03/17 08:59 01/10/17 09:35 Isosorbide Mononitrate (Imdur) 30 mg DAILY ORAL 01/04/17 09:00 02/03/17 08:59 01/10/17 09:35 Ondansetron HCl (Zofran) 4 mg Q6H PRN IVP Nausea & Vomiting 01/04/17 10:30 02/03/17 10:29 Polyethylene Glycol (Miralax) 17 gm HSPRN PRN ORAL Constipation 01/04/17 22:30 02/03/17 22:29 01/10/17 21:06 Pravastatin Sodium (Pravachol) 40 mg BEDTIME ORAL 01/04/17 21:00 02/03/17 20:59 01/10/17 21:06 Vitamin B Complex/ Vit C/Folic Acid (Nephrovite) 1 tab DAILY ORAL 01/07/17 12:00 02/06/17 11:59 01/11/17 09:17 Zolpidem Tartrate (Ambien) 5 mg HSPRN PRN ORAL Insomnia 01/04/17 22:30 02/03/17 22:29 Allergies: Coded Allergies: ASPIRIN (Verified Allergy, Mild, 08/15/10) PENICILLINS (Verified Allergy, Mild, 08/15/10) LEBRON INHIBITORS (Unverified Allergy, Unknown, 01/01/17) ACETAMINOPHEN (Unverified Allergy, Unknown, 09/18/15) patient stated CODEINE (Unverified Allergy, Unknown, 01/01/17) PENICILLIN (Verified Allergy, Unknown, 09/17/15) ROS Limited/Unobtainable: No Constitutional: Reports: no symptoms HEENT: Reports: no symptoms Cardiovascular: Reports: no symptoms Respiratory: Reports: no symptoms Gastrointestinal/Abdominal: Reports: no symptoms Genitourinary: Reports: hematuria Neurologic/Psychiatric: Reports: no symptoms Subjective 66 YO F admitted with hematuria. S/P cystoscopy 01/05/17. Hematuria improving. Cover for Int Med-Dr Wayne. Objective Last Vital Signs Date Time Temp Pulse Resp B/P Pulse Ox O2 Delivery O2 Flow Rate FiO2 01/11/17 10:20 78 20 Room Air 21 01/11/17 09:00 126/54 01/11/17 08:00 98.1 98 Laboratory Tests Test 01/11/17 05:25 White Blood Count 11.5 K/UL (4.8-10.8) H Red Blood Count 3.29 M/UL (4.20-5.40) L Hemoglobin 9.8 G/DL (12.0-16.0) L Hematocrit 31.2 % (37.0-47.0) L Mean Corpuscular Volume 95 FL (80-99) Mean Corpuscular Hemoglobin 29.8 PG (27.0-31.0) Mean Corpuscular Hemoglobin Concent 31.4 G/DL (32.0-36.0) L Red Cell Distribution Width 17.1 % (11.6-14.8) H Platelet Count 160 K/UL (150-450) Mean Platelet Volume 8.8 FL (6.5-10.1) Neutrophils (%) (Auto) 78.6 % (45.0-75.0) H Lymphocytes (%) (Auto) 12.8 % (20.0-45.0) L Monocytes (%) (Auto) 5.2 % (1.0-10.0) Eosinophils (%) (Auto) 2.9 % (0.0-3.0) Basophils (%) (Auto) 0.5 % (0.0-2.0) Sodium Level 136 mEQ/L (135-145) Potassium Level 4.5 mEQ/L (3.4-4.9) Chloride Level 95 mEQ/L (98-107) L Carbon Dioxide Level 26 mEQ/L (20-30) Anion Gap 15 (5-15) Blood Urea Nitrogen 69 mg/dL (7-23) H Creatinine 4.9 mg/dL (0.5-0.9) H Estimat Glomerular Filtration Rate 10.7 mL/min (>60) Glucose Level 101 mg/dL (74-106) Calcium Level 9.0 mg/dL (8.6-10.2) Microbiology Date/Time Source Procedure Growth Status 01/09/17 21:38 Indwelling Cath Urine Culture - Preliminary NO GROWTH AFTER 24 HOURS Resulted Intake and Output 01/10/17 01/11/17 19:00 07:00 Intake Total 655 ml 360 ml Output Total 500 ml 450 ml Balance 155 ml -90 ml Intake Oral 600 ml 360 ml IV Total 55 ml Output Urine Total 500 ml 450 ml Objective General Appearance: moderate distress, cachetic, thin EENT: PERRL/EOMI, normal ENT inspection, TMs normal Neck: non-tender, normal alignment, supple Cardiovascular: normal peripheral pulses, normal rate, regular rhythm, no gallop/murmur, no JVD Respiratory/Chest: chest wall non-tender, lungs clear, normal breath sounds, no respiratory distress, no accessory muscle use Abdomen: normal bowel sounds, non tender, soft, no organomegaly, no mass Extremities: other - Bilateral BKA 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 (2) Dysfunctional uterine bleeding Assessment & Plan: Pelvic exam under anesthesia cancelled-see [employer] note. (3) Severe anemia Assessment & Plan: S/P transfusion 4 units PRBC (4) Hypokalemia Assessment & Plan: S/P replacement. (5) ESRD on hemodialysis Assessment & Plan: See nephrology note. 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 (12) HTN (hypertension) Assessment & Plan: Cont avapro and hydralazine. (13) Hematuria Assessment & Plan: S/P cystoscopy and clot evacuation on 01/05/17-see urology note. Bladder irrigation q 4 hr Status: progressing Assessment/Plan Discharge planning: [facility] longterm facility poss 01/12/17. NAHOMY MERRILL Jan 11, 2017 12:27
[2017-01-11] MEDS: traMADol 50mg tab ORAL PRN ×2 (14:51→21:28)
[2017-01-11 16:00] VITALS: BP 118/59
--- NOTE | 2017-01-11 16:29 | Nephrology Progress Note ---
Assessment/Plan Assessment 1. Severe hypokalemia. resolved 2. End-stage renal disease. 3. Anemia of chronic kidney disease. 4. Hematuria. 5. Questionable bladder CA when there was urinary tract infection. 6. Hypertension, which is uncontrolled at this time. 7.malnutrition Plan dialysis as schedule may need transfusion continue epogen check H&H nutritional support prealbumin of 7 no need for phosphate binder Subjective Constitutional: Reports: no symptoms HEENT: Reports: no symptoms Genitourinary: Reports: no symptoms Neurologic/Psychiatric: Reports: no symptoms Subjective awake and alert today awaiting for dialysis to be done today Objective Objective Last 24 Hour Vital Signs Date Time Temp Pulse Resp B/P Pulse Ox O2 Delivery O2 Flow Rate FiO2 01/11/17 15:30 Room Air 01/11/17 12:00 98.1 78 20 144/61 99 Room Air 01/11/17 11:40 Room Air 01/11/17 10:20 78 20 Room Air 21 01/11/17 09:00 126/54 01/11/17 09:00 126/54 01/11/17 09:00 126/54 01/11/17 09:00 79 126/54 01/11/17 08:00 98.1 79 20 126/54 98 Room Air 01/11/17 04:00 97.7 76 19 143/66 98 Room Air 01/11/17 00:38 97.7 75 20 135/60 98 Room Air 01/10/17 22:05 98.0 01/10/17 21:06 125/62 01/10/17 21:06 80 125/62 01/10/17 20:07 80 20 Room Air 21 01/10/17 19:00 98.0 81 18 125/62 Room Air Intake and Output 01/10/17 01/11/17 19:00 07:00 Intake Total 655 ml 360 ml Output Total 500 ml 450 ml Balance 155 ml -90 ml Intake Oral 600 ml 360 ml IV Total 55 ml Output Urine Total 500 ml 450 ml Laboratory Tests 01/11/17 05:25: White Blood Count 11.5H, Red Blood Count 3.29L, Hemoglobin 9.8L, Hematocrit 31.2L, Mean Corpuscular Volume 95, Mean Corpuscular Hemoglobin 29.8, Mean Corpuscular Hemoglobin Concent 31.4L, Red Cell Distribution Width 17.1H, Platelet Count 160, Mean Platelet Volume 8.8, Neutrophils (%) (Auto) 78.6H, Lymphocytes (%) (Auto) 12.8L, Monocytes (%) (Auto) 5.2, Eosinophils (%) (Auto) 2.9, Basophils (%) (Auto) 0.5, Sodium Level 136, Potassium Level 4.5, Chloride Level 95L, Carbon Dioxide Level 26, Anion Gap 15, Blood Urea Nitrogen 69H, Creatinine 4.9H, Estimat Glomerular Filtration Rate 10.7, Glucose Level 101, Calcium Level 9.0 Height (Feet): 4 Height (Inches): 5.00 Weight (Pounds): 99 Objective HEAD AND NECK: No JVP. No LAD. No thyromegaly. Extraocular movement intact. Pupils are reactive to light and accommodation. LUNGS: Decreased breathing sounds. CARDIAC: Regular rate and rhythm. S1-S2. No murmur. No rub. ABDOMEN: Soft and nontender. EXTREMITIES: She has bilateral lower extremity amputation and has a Andrew catheter. It has blood in it. KALINA WELLS Jan 11, 2017 16:29
--- NOTE | 2017-01-11 16:30 | Pulmonology Progress Note ---
Assessment/Plan Problems: (1) Symptomatic anemia (2) Bladder hemorrhage (3) Uterine hemorrhage (4) ESRF (end stage renal failure) (5) DM renal manif type II Assessment/Plan improving urine cultures pending hematuria drastically decreased sliding scale Left index finger still unchged. Subjective Interval Events: no new complains, minimal blood in the calderón bag Allergies: Coded Allergies: ASPIRIN (Verified Allergy, Mild, 08/15/10) PENICILLINS (Verified Allergy, Mild, 08/15/10) LEBRON INHIBITORS (Unverified Allergy, Unknown, 01/01/17) ACETAMINOPHEN (Unverified Allergy, Unknown, 09/18/15) patient stated CODEINE (Unverified Allergy, Unknown, 01/01/17) PENICILLIN (Verified Allergy, Unknown, 09/17/15) Objective Last 24 Hour Vital Signs Date Time Temp Pulse Resp B/P Pulse Ox O2 Delivery O2 Flow Rate FiO2 01/11/17 15:30 Room Air 21 01/11/17 12:00 98.1 78 20 144/61 99 Room Air 01/11/17 11:40 Room Air 21 01/11/17 10:20 78 20 Room Air 21 01/11/17 09:00 126/54 01/11/17 09:00 126/54 01/11/17 09:00 126/54 01/11/17 09:00 79 126/54 01/11/17 08:00 98.1 79 20 126/54 98 Room Air 01/11/17 04:00 97.7 76 19 143/66 98 Room Air 01/11/17 00:38 97.7 75 20 135/60 98 Room Air 01/10/17 22:05 98.0 01/10/17 21:06 125/62 01/10/17 21:06 80 125/62 01/10/17 20:07 80 20 Room Air 21 01/10/17 19:00 98.0 81 18 125/62 Room Air Intake and Output 01/10/17 01/11/17 19:00 07:00 Intake Total 655 ml 360 ml Output Total 500 ml 450 ml Balance 155 ml -90 ml Intake Oral 600 ml 360 ml IV Total 55 ml Output Urine Total 500 ml 450 ml General Appearance: WD/WN HEENT: normocephalic, atraumatic Respiratory/Chest: chest wall non-tender, lungs clear Cardiovascular: normal peripheral pulses, normal rate Abdomen: normal bowel sounds, soft, non tender Microbiology Date/Time Source Procedure Growth Status 01/09/17 21:38 Indwelling Cath Urine Culture - Preliminary NO GROWTH AFTER 24 HOURS Resulted Laboratory Tests 01/11/17 05:25: White Blood Count 11.5H, Red Blood Count 3.29L, Hemoglobin 9.8L, Hematocrit 31.2L, Mean Corpuscular Volume 95, Mean Corpuscular Hemoglobin 29.8, Mean Corpuscular Hemoglobin Concent 31.4L, Red Cell Distribution Width 17.1H, Platelet Count 160, Mean Platelet Volume 8.8, Neutrophils (%) (Auto) 78.6H, Lymphocytes (%) (Auto) 12.8L, Monocytes (%) (Auto) 5.2, Eosinophils (%) (Auto) 2.9, Basophils (%) (Auto) 0.5, Sodium Level 136, Potassium Level 4.5, Chloride Level 95L, Carbon Dioxide Level 26, Anion Gap 15, Blood Urea Nitrogen 69H, Creatinine 4.9H, Estimat Glomerular Filtration Rate 10.7, Glucose Level 101, Calcium Level 9.0 Current Medications Medications (Trade) Dose Ordered Sig/Angelique Route PRN Reason Start Time Stop Time Status Last Admin Dose Admin Al Hydroxide/Mg Hydroxide (Mylanta II) 30 ml Q6H PRN ORAL dyspepsia 01/04/17 10:30 02/03/17 10:29 Albuterol/ Ipratropium (DuoNeb 0.5-3(2.5)mg/3ml) 3 ml Q6H PRN HHN dyspnea 01/08/17 08:30 01/13/17 08:29 Belladonna Alkaloids/Opium (B & O (15-A)) 30 mg TWICE A DAY PRN RECTAL spasm 01/05/17 10:00 01/12/17 09:59 01/05/17 12:45 Carvedilol (Coreg) 12.5 mg EVERY 12 HOURS ORAL 01/04/17 09:00 02/03/17 08:59 01/10/17 21:06 Ceftriaxone Sodium/Sodium Chloride (Rocephin/Sodium Chloride) 55 ml @ 110 mls/hr Q24H IVPB 01/11/17 18:00 01/16/17 23:59 Dextrose (Dextrose 50%) STAT PRN IV Hypoglycemia 01/04/17 22:30 02/03/17 22:29 Epoetin Tristan (Procrit (for ESRD on dialysis)) 10,000 units WED-WED-WED SUBQ 01/04/17 21:00 02/03/17 20:59 01/08/17 20:45 Hydralazine HCl (Apresoline) 75 mg Q12HR ORAL 01/04/17 09:00 02/03/17 08:59 01/10/17 21:06 Insulin Aspart (NovoLOG) BEFORE MEALS AND HS SUBQ 01/04/17 06:30 02/03/17 06:29 01/11/17 11:47 Irbesartan (Avapro) 300 mg DAILY ORAL 01/04/17 09:00 02/03/17 08:59 01/10/17 09:35 Isosorbide Mononitrate (Imdur) 30 mg DAILY ORAL 01/04/17 09:00 02/03/17 08:59 01/10/17 09:35 Ondansetron HCl (Zofran) 4 mg Q6H PRN IVP Nausea & Vomiting 01/04/17 10:30 02/03/17 10:29 Polyethylene Glycol (Miralax) 17 gm HSPRN PRN ORAL Constipation 01/04/17 22:30 02/03/17 22:29 01/10/17 21:06 Pravastatin Sodium (Pravachol) 40 mg BEDTIME ORAL 01/04/17 21:00 02/03/17 20:59 01/10/17 21:06 Tramadol HCl 50 mg 50 mg Q6H PRN ORAL Moderate Pain (Pain Scale 4-6) 01/11/17 13:00 01/18/17 12:59 01/11/17 14:51 Vitamin B Complex/ Vit C/Folic Acid (Nephrovite) 1 tab DAILY ORAL 01/07/17 12:00 02/06/17 11:59 01/11/17 09:17 Zolpidem Tartrate (Ambien) 5 mg HSPRN PRN ORAL Insomnia 01/04/17 22:30 02/03/17 22:29 ELIA MARADIAGA Jan 11, 2017 16:30
[2017-01-11] MEDS ORDERED: cefTRIAXone 1 GM in NS 55 ML IVPB SCH (18:00)
[2017-01-11 20:00] VITALS: BP 116/57
[2017-01-11] MEDS: Epogen (for ESRD on dialysis) SUBQ SCH (21:13)
--- NOTE | 2017-01-11 23:43 | Cardiology Progress Note ---
Assessment/Plan Assessment/Plan 1. Hypertensive heart disease with normal LVEF, blood pressure normalized, continue coreg, hydralazine and irbesartan. 2. ESRD 3. No evidence of cardiac shunting on echocardiography. 4. s/p cystoscopy and evacuation of blood clots. 5. Anemia, s/p blood transfusion. Subjective Subjective The patient denies chest pain or SOB. Objective Last 24 Hour Vital Signs Date Time Temp Pulse Resp B/P Pulse Ox O2 Delivery O2 Flow Rate FiO2 01/11/17 21:00 116/57 01/11/17 21:00 62 116/57 01/11/17 20:00 97.6 62 16 116/57 96 Room Air 01/11/17 16:00 97.0 59 16 118/59 94 Room Air 01/11/17 15:30 Room Air 21 01/11/17 12:00 98.1 78 20 144/61 99 Room Air 01/11/17 11:40 Room Air 21 01/11/17 10:20 78 20 Room Air 21 01/11/17 09:00 126/54 01/11/17 09:00 126/54 01/11/17 09:00 126/54 01/11/17 09:00 79 126/54 01/11/17 08:00 98.1 79 20 126/54 98 Room Air 01/11/17 04:00 97.7 76 19 143/66 98 Room Air 01/11/17 00:38 97.7 75 20 135/60 98 Room Air Intake and Output 01/10/17 01/11/17 19:00 07:00 Intake Total 655 ml 360 ml Output Total 500 ml 450 ml Balance 155 ml -90 ml Intake Oral 600 ml 360 ml IV Total 55 ml Output Urine Total 500 ml 450 ml 2D Echo: EF 55%, sev LVH, LAE, grade I lVDD Laboratory Tests Test 01/11/17 05:25 White Blood Count 11.5 K/UL (4.8-10.8) H Red Blood Count 3.29 M/UL (4.20-5.40) L Hemoglobin 9.8 G/DL (12.0-16.0) L Hematocrit 31.2 % (37.0-47.0) L Mean Corpuscular Volume 95 FL (80-99) Mean Corpuscular Hemoglobin 29.8 PG (27.0-31.0) Mean Corpuscular Hemoglobin Concent 31.4 G/DL (32.0-36.0) L Red Cell Distribution Width 17.1 % (11.6-14.8) H Platelet Count 160 K/UL (150-450) Mean Platelet Volume 8.8 FL (6.5-10.1) Neutrophils (%) (Auto) 78.6 % (45.0-75.0) H Lymphocytes (%) (Auto) 12.8 % (20.0-45.0) L Monocytes (%) (Auto) 5.2 % (1.0-10.0) Eosinophils (%) (Auto) 2.9 % (0.0-3.0) Basophils (%) (Auto) 0.5 % (0.0-2.0) Sodium Level 136 mEQ/L (135-145) Potassium Level 4.5 mEQ/L (3.4-4.9) Chloride Level 95 mEQ/L (98-107) L Carbon Dioxide Level 26 mEQ/L (20-30) Anion Gap 15 (5-15) Blood Urea Nitrogen 69 mg/dL (7-23) H Creatinine 4.9 mg/dL (0.5-0.9) H Estimat Glomerular Filtration Rate 10.7 mL/min (>60) Glucose Level 101 mg/dL (74-106) Calcium Level 9.0 mg/dL (8.6-10.2) Microbiology Date/Time Source Procedure Growth Status 01/09/17 21:38 Indwelling Cath Urine Culture - Preliminary NO GROWTH AFTER 24 HOURS Resulted Objective HEENT: Eyes, pupils are equal and responsive to light and accommodation. Extraocular movements are intact. NECK: No JVD, no carotid bruit, carotid upstroke 2+ B/L CHEST: Lungs are clear to auscultation CARDIOVASCULAR: Regular rhythm and rate. S1 and S2 normal without murmurs, rubs, gallops. ABDOMEN: Soft, nontender, and nondistended. Positive bowel sounds. No hepatosplenomegaly, no rebound or guarding noted. EXTREMITIES: The patient had a bilateral [id number] amputation. Otherwise, without clubbing, cyanosis or edema. DONAVAN BLANCAS Jan 11, 2017 23:43
[2017-01-12] VITALS: BP 122/65
[2017-01-12 04:00] VITALS: BP 145/58
[2017-01-12] MEDS: traMADol 50mg tab ORAL PRN ×2 (04:32→11:51)
[2017-01-12] MEDS: NovoLOG Insulin Flexpen SUBQ SCH ×2 (06:19→11:52)
[2017-01-12 07:23] LABS: BASOPHILS % (AUTO) 0.7 % (0.0-2.0); EOSINOPHILS % (AUTO) 2.2 % (0.0-3.0); MEAN CORPUSCULAR HEMOGLOBIN 30.3 PG (27.0-31.0); MEAN CORPUSCULAR HGB CONC 31.6 G/DL (32.0-36.0); MEAN CORPUSCULAR VOLUME 96 FL (80-99); MEAN PLATELET VOLUME 9.6 FL (6.5-10.1); NEUTROPHILS % (AUTO) 80.1 % (45.0-75.0); PLATELET COUNT 150 K/UL (150-450); RED BLOOD COUNT 3.24 M/UL (4.20-5.40); WHITE BLOOD COUNT 10.9 K/UL (4.8-10.8)
[2017-01-12 07:32] LABS: CALCIUM 8.7 mg/dL (8.6-10.2); CREATININE 3.6 mg/dL (0.5-0.9); GLOMERULAR FILTRATION RATE 15.3 mL/min (>60)
[2017-01-12 08:20] VITALS: BP 129/56
[2017-01-12] MEDS: Imdur 30mg tab ORAL SCH (09:29)
[2017-01-12] MEDS: Nephrovite tab ORAL SCH (09:29)
[2017-01-12] MEDS: Carvedilol 12.5mg tab ORAL SCH (09:29)
[2017-01-12] MEDS: Irbesartan 150mg tablet ORAL SCH (09:29)
[2017-01-12] MEDS: HydrALAZINE 25mg tab ORAL SCH (09:30)
[2017-01-12 11:14] VITALS: BP 117/58
[2017-01-12] MEDS ORDERED: EPOGEN20000 UNI1 SUBQ (14:19)
[2017-01-12] MEDS ORDERED: MIRALAX17 G2 ORAL (14:20)
--- NOTE | 2017-01-12 15:04 | Internal Med Progress Note ---
Subjective Physician Name Scotty Wayne Attending Physician Scotty Wayne MD Current Medications Medications (Trade) Dose Ordered Sig/Angelique Route PRN Reason Start Time Stop Time Status Last Admin Dose Admin Al Hydroxide/Mg Hydroxide (Mylanta II) 30 ml Q6H PRN ORAL dyspepsia 01/04/17 10:30 02/03/17 10:29 Albuterol/ Ipratropium (DuoNeb 0.5-3(2.5)mg/3ml) 3 ml Q6H PRN HHN dyspnea 01/08/17 08:30 01/13/17 08:29 Carvedilol (Coreg) 12.5 mg EVERY 12 HOURS ORAL 01/04/17 09:00 02/03/17 08:59 01/12/17 09:29 Ceftriaxone Sodium/Sodium Chloride (Rocephin/Sodium Chloride) 55 ml @ 110 mls/hr Q24H IVPB 01/11/17 18:00 01/16/17 23:59 01/11/17 18:45 Dextrose (Dextrose 50%) STAT PRN IV Hypoglycemia 01/04/17 22:30 02/03/17 22:29 Epoetin Tristan (Procrit (for ESRD on dialysis)) 10,000 units WED-WED-WED SUBQ 01/04/17 21:00 02/03/17 20:59 01/11/17 21:13 Hydralazine HCl (Apresoline) 75 mg Q12HR ORAL 01/04/17 09:00 02/03/17 08:59 01/12/17 09:30 Insulin Aspart (NovoLOG) BEFORE MEALS AND HS SUBQ 01/04/17 06:30 02/03/17 06:29 01/12/17 11:52 Irbesartan (Avapro) 300 mg DAILY ORAL 01/04/17 09:00 02/03/17 08:59 01/12/17 09:29 Isosorbide Mononitrate (Imdur) 30 mg DAILY ORAL 01/04/17 09:00 02/03/17 08:59 01/12/17 09:29 Ondansetron HCl (Zofran) 4 mg Q6H PRN IVP Nausea & Vomiting 01/04/17 10:30 02/03/17 10:29 Polyethylene Glycol (Miralax) 17 gm HSPRN PRN ORAL Constipation 01/04/17 22:30 02/03/17 22:29 01/10/17 21:06 Pravastatin Sodium (Pravachol) 40 mg BEDTIME ORAL 01/04/17 21:00 02/03/17 20:59 01/11/17 21:12 Tramadol HCl 50 mg 50 mg Q6H PRN ORAL Moderate Pain (Pain Scale 4-6) 01/11/17 13:00 01/18/17 12:59 01/12/17 11:51 Vitamin B Complex/ Vit C/Folic Acid (Nephrovite) 1 tab DAILY ORAL 01/07/17 12:00 02/06/17 11:59 01/12/17 09:29 Zolpidem Tartrate (Ambien) 5 mg HSPRN PRN ORAL Insomnia 01/04/17 22:30 02/03/17 22:29 Allergies: Coded Allergies: ASPIRIN (Verified Allergy, Mild, 08/15/10) PENICILLINS (Verified Allergy, Mild, 08/15/10) LEBRON INHIBITORS (Unverified Allergy, Unknown, 01/01/17) ACETAMINOPHEN (Unverified Allergy, Unknown, 09/18/15) patient stated CODEINE (Unverified Allergy, Unknown, 01/01/17) PENICILLIN (Verified Allergy, Unknown, 09/17/15) Subjective awake, alert, responsive, NAD Objective Last Vital Signs Date Time Temp Pulse Resp B/P Pulse Ox O2 Delivery O2 Flow Rate FiO2 01/12/17 11:14 97.9 79 15 117/58 98 01/12/17 08:20 Room Air 01/12/17 07:55 21 Laboratory Tests Test 01/12/17 05:55 White Blood Count 10.9 K/UL (4.8-10.8) H Red Blood Count 3.24 M/UL (4.20-5.40) L Hemoglobin 9.8 G/DL (12.0-16.0) L Hematocrit 31.1 % (37.0-47.0) L Mean Corpuscular Volume 96 FL (80-99) Mean Corpuscular Hemoglobin 30.3 PG (27.0-31.0) Mean Corpuscular Hemoglobin Concent 31.6 G/DL (32.0-36.0) L Red Cell Distribution Width 17.0 % (11.6-14.8) H Platelet Count 150 K/UL (150-450) Mean Platelet Volume 9.6 FL (6.5-10.1) Neutrophils (%) (Auto) 80.1 % (45.0-75.0) H Lymphocytes (%) (Auto) 11.0 % (20.0-45.0) L Monocytes (%) (Auto) 6.0 % (1.0-10.0) Eosinophils (%) (Auto) 2.2 % (0.0-3.0) Basophils (%) (Auto) 0.7 % (0.0-2.0) Sodium Level 141 mEQ/L (135-145) Potassium Level 4.0 mEQ/L (3.4-4.9) Chloride Level 98 mEQ/L (98-107) Carbon Dioxide Level 32 mEQ/L (20-30) H Anion Gap 11 (5-15) Blood Urea Nitrogen 41 mg/dL (7-23) #H Creatinine 3.6 mg/dL (0.5-0.9) H Estimat Glomerular Filtration Rate 15.3 mL/min (>60) Glucose Level 98 mg/dL (74-106) Calcium Level 8.7 mg/dL (8.6-10.2) Microbiology Date/Time Source Procedure Growth Status 01/09/17 21:38 Indwelling Cath Urine Culture - Final NO GROWTH AFTER 48 HOURS Complete Intake and Output 01/11/17 01/12/17 19:00 07:00 Intake Total 360 ml 600 ml Output Total 2275 ml 240 ml Balance -1915 ml 360 ml Intake Oral 360 ml 600 ml Output Urine Total 175 ml 240 ml Hemodialysis UF 2100 ml # Bowel Movements 1 Objective General Appearance: moderate distress, cachetic, thin EENT: PERRL/EOMI, normal ENT inspection, Neck: non-tender, normal alignment, supple Cardiovascular: normal peripheral pulses, normal rate, regular rhythm, no murmur, no JVD Respiratory/Chest: chest wall non-tender, lungs clear, normal breath sounds, Abdomen: normal bowel sounds, non tender, soft, Extremities: stumps clean. Bilateral AKA, Left UE AVF. 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 (2) Dysfunctional uterine bleeding Assessment & Plan: Pelvic exam under anesthesia cancelled-see FRUIT DISTRIBUTOR note. (3) Severe anemia Assessment & Plan: S/P transfusion 4 units PRBC (4) Hypokalemia Assessment & Plan: S/P replacement. (5) ESRD on hemodialysis Assessment & Plan: See nephrology note. 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 (12) HTN (hypertension) Assessment & Plan: Cont Avapro and hydralazine. (13) Hematuria Assessment & Plan: S/P cystoscopy and clot evacuation on 01/05/17 Status: progressing Assessment/Plan Discharge planning: [facility] facility today with Andrew cath. F/U with Urology in 1 week. Scotty Wayne MD Jan 12, 2017 15:04
--- NOTE | 2017-01-12 16:00 | Nephrology Progress Note ---
Assessment/Plan Assessment 1. Severe hypokalemia. resolved 2. End-stage renal disease. 3. Anemia of chronic kidney disease. 4. Hematuria. 5. Questionable bladder CA when there was urinary tract infection. 6. Hypertension, which is uncontrolled at this time. 7.malnutrition Plan dialysis as schedule may need transfusion continue epogen check H&H nutritional support prealbumin of 7 no need for phosphate binder Subjective Constitutional: Reports: no symptoms HEENT: Reports: no symptoms Genitourinary: Reports: no symptoms Neurologic/Psychiatric: Reports: no symptoms Subjective awake and alert today Objective Objective Last 24 Hour Vital Signs Date Time Temp Pulse Resp B/P Pulse Ox O2 Delivery O2 Flow Rate FiO2 01/12/17 11:14 97.9 79 15 117/58 98 01/12/17 09:30 129/56 01/12/17 09:29 129/56 01/12/17 09:29 129/56 01/12/17 09:29 83 129/56 01/12/17 08:20 97.7 83 15 129/56 99 Room Air 01/12/17 07:55 75 16 Room Air 21 01/12/17 04:00 97.5 84 18 145/58 98 Room Air 01/12/17 00:00 97.2 67 16 122/65 98 Room Air 01/11/17 21:00 116/57 01/11/17 21:00 62 116/57 01/11/17 20:00 97.6 62 16 116/57 96 Room Air Intake and Output 01/11/17 01/12/17 19:00 07:00 Intake Total 360 ml 600 ml Output Total 2275 ml 240 ml Balance -1915 ml 360 ml Intake Oral 360 ml 600 ml Output Urine Total 175 ml 240 ml Hemodialysis UF 2100 ml # Bowel Movements 1 Laboratory Tests 01/12/17 05:55: White Blood Count 10.9H, Red Blood Count 3.24L, Hemoglobin 9.8L, Hematocrit 31.1L, Mean Corpuscular Volume 96, Mean Corpuscular Hemoglobin 30.3, Mean Corpuscular Hemoglobin Concent 31.6L, Red Cell Distribution Width 17.0H, Platelet Count 150, Mean Platelet Volume 9.6, Neutrophils (%) (Auto) 80.1H, Lymphocytes (%) (Auto) 11.0L, Monocytes (%) (Auto) 6.0, Eosinophils (%) (Auto) 2.2, Basophils (%) (Auto) 0.7, Sodium Level 141, Potassium Level 4.0, Chloride Level 98, Carbon Dioxide Level 32H, Anion Gap 11, Blood Urea Nitrogen 41#H, Creatinine 3.6H, Estimat Glomerular Filtration Rate 15.3, Glucose Level 98, Calcium Level 8.7 Height (Feet): 4 Height (Inches): 5.00 Weight (Pounds): 99 Objective HEAD AND NECK: No JVP. No LAD. No thyromegaly. Extraocular movement intact. Pupils are reactive to light and accommodation. LUNGS: Decreased breathing sounds. CARDIAC: Regular rate and rhythm. S1-S2. No murmur. No rub. ABDOMEN: Soft and nontender. EXTREMITIES: She has bilateral lower extremity amputation and has a Andrew catheter. It has blood in it. KALINA WELLS Jan 12, 2017 16:00
[2017-01-12] MEDS ORDERED: Tubing IV Secondary IV ONE (16:02)
[2017-01-12] MEDS ORDERED: NS 275ml ONE (16:02)
[2017-01-12] MEDS ORDERED: Sterile Water Irrig 1000ml IRRIG ONE (16:02)
--- NOTE | 2017-01-14 16:03 | Discharge Summary ---
Discharge Summary Hospital Course Date of Admission Jan 01, 2017 at 19:20 Date of Discharge Jan 12, 2017 at 16:03 Admitting Diagnosis anemia, end stage renal disease HPI Celina العلي is a 66 year old female who was admitted on Jan 01, 2017 at 19:20 for Anemia,End Stage Renal Disease Hospital Course [id number] Discharge Discharge Disposition Patient was discharged to SNF/Subacute Facility(03) Discharge Diagnoses: Gladis Alonzo NP Jan 14, 2017 16:03
--- NOTE | 2017-01-15 04:48 | Discharge Summary 2 SIG ---
DATE OF ADMISSION: 01/01/2017 DATE OF DISCHARGE: 01/12/2017 CONSULTANTS: 1. Cheo Dumont M.D. 2. Elena Whitlock M.D. 3. Brittnee Zhu M.D. 4. Ajay Marlow M.D. 5. Noemi Tay M.D. BRIEF HOSPITAL COURSE: The patient is a 66-year-old female, who presented to ED complaining of hematuria and vaginal bleed. She has history of peripheral vascular disease and has bilateral [id number] amputation. She complained of bleeding approximately three days. On evaluation at ED, she was found to have hemoglobin of 6.5. CAT scan done showed air within the bladder with heterogeneous mass-like increased density on the posterior bladder. Urology consult was done. The patient was placed on bladder irrigation. Gynecology consult was also done. A pelvic ultrasound showed technically limited exam with multiple calcified mass suggestive of fibroids. Bilateral ovaries were not seen. The patient was planned to undergo a pelvic exam under anesthesia, however, was canceled. She continued to have hematuria despite being on bladder irrigation and on 01/05/2017, underwent cystoscopy with clot evacuation, bladder biopsy, and fulguration. Post procedure, she was given continuous bladder irrigation for 24 hours and was observed of bladder irrigation. However, hemoglobin level again dropped. She was restarted on bladder irrigation and IV antibiotics. Dr. Zhu was consulted. The patient has end-stage renal disease and is on hemodialysis. She received inpatient dialysis and was given blood transfusions with dialysis. She was given Epogen. There was no need for phosphate binders. She had hypokalemia, which eventually resolved with potassium supplementation. Dr. Marlow was consulted for evaluation of hypertensive heart disease with normal left ventricular ejection fraction and was given Coreg, hydralazine, and irbesartan. There was no evidence of cardiac shunting on echocardiogram. She received total 4 units of packed RBC blood transfusion during inpatient stay. Bladder irrigation was eventually discontinued. The patient has been on Plavix prior to being admitted. Urine culture did not isolate any growth. Hematuria was assessed to be likely secondary to anticoagulation and inflammation. The patient was discharged to a long-term facility with Andrew catheter to follow up with Urology in one week. FINAL DIAGNOSES: 1. Acute hematuria, status post cystoscopy and clot evacuation. 2. Acute severe anemia requiring transfusion of 4 units of packed RBC. 3. Dysfunctional uterine bleed. 4. Bladder mass. 5. Hypokalemia, status post replacement. 6. End-stage renal disease, on hemodialysis. 7. Scleroderma. 8. Cerebrovascular disease. 9. Expressive aphasia. 10. Below-knee amputation status. 11. Necrosis of finger. 12. Hypertension. 13. Anemia of chronic disease. Scotty Wayne M.D. I have been assigned to dictate discharge summary on this account and I was not involved in the patient's management. Gladis Alonzo N.P. DR: Radha JOB#: [id number] CC:
== END 2017-01-12 16:03 | DRG 668 ==
LOC: EDBD 17:41 → EMR 18:47 → 2W 19:20 → EDBEDREQ 01-02 01:29 → 2E 01-02 07:11 → 4E 01-04 04:35
PROC: 30233N1 Transfusion of Nonautologous Red Blood Cells into Peripheral Vein, Percutaneous Approach (ICD-10-PCS; principal; 2017-01-02)
PROC: 5A1D60Z (ICD-10-PCS; 2017-01-04)
PROC: 0T5B8ZZ Destruction of Bladder, Via Natural or Artificial Opening Endoscopic (ICD-10-PCS; 2017-01-05)
PROC: 0TBB8ZX Excision of Bladder, Via Natural or Artificial Opening Endoscopic, Diagnostic (ICD-10-PCS; 2017-01-05)
PROC: 0TCB8ZZ Extirpation of Matter from Bladder, Via Natural or Artificial Opening Endoscopic (ICD-10-PCS; 2017-01-05)
PROC: 0T9B80Z Drainage of Bladder with Drainage Device, Via Natural or Artificial Opening Endoscopic (ICD-10-PCS; 2017-01-05)
DX: N32.9 Bladder disorder, unspecified (principal); N18.6 End stage renal disease; E46 Unspecified protein-calorie malnutrition; I96 Gangrene, not elsewhere classified; M34.9 Systemic sclerosis, unspecified; D62 Acute posthemorrhagic anemia; I13.11 Hypertensive heart and chronic kidney disease without heart failure, with stage 5 chronic kidney disease, or end stage renal disease; I69.320 Aphasia following cerebral infarction; N93.9 Abnormal uterine and vaginal bleeding, unspecified; Z99.2 Dependence on renal dialysis; I25.2 Old myocardial infarction; I73.9 Peripheral vascular disease, unspecified; Z89.512 Acquired absence of left leg below knee; Z89.511 Acquired absence of right leg below knee; E87.6 Hypokalemia; Z79.02 Long term (current) use of antithrombotics/antiplatelets; Z88.6 Allergy status to analgesic agent; Z88.0 Allergy status to penicillin; Z88.8 Allergy status to other drugs, medicaments and biological substances; E11.21 Type 2 diabetes mellitus with diabetic nephropathy; E78.5 Hyperlipidemia, unspecified; D63.1 Anemia in chronic kidney disease; E11.22 Type 2 diabetes mellitus with diabetic chronic kidney disease
CPT/HCPCS: 36415; 71010; 74176; 76856; 80048; 80053; 80061; 80162; 82248; 82550; 82553; 82962; 83036; 83540; 83550; 83735; 83880; 83970; 84100; 84132; 84134; 84443; 84484; 85007; 85025; 85610; 85730; 86850; 86900; 86901; 86920; 87086; 93005; 94003; 94150; 94664; J1815; J2250; J2405; J7620; J8499